=== PATIENT | male | born 1950 | race Two or more races ===

== ENCOUNTER 2017-03-22 13:48 | Inpatient (IN) | payer MEDICARE, OTHER ==
[~2017-03-22] VITALS: Ht 170.2 cm; Wt 71.7 kg
--- NOTE | 2017-03-22 14:00 | NUR ---
FRED FROM [facility], [place] FOR ABNORMAL LAB RESULTS-- BUN 126 K- 6.1. PATIENT RECEIVED OBTUNDED, VENT TRACHE- SETTING TOLERATED. GT INTACT, NO SIGNS ON INFECTION, FC CATH INDWELLING WELL. PATIENT WITH RBKA- VSS
[2017-03-22 14:05] VITALS: BP 144/57
--- NOTE | 2017-03-22 14:06 | NUR ---
AC 12 TV 500 [id number]
--- NOTE | 2017-03-22 14:10 | NUR ---
MD MARX AT
[2017-03-22] MEDS ORDERED: NUT.237L31 GT (14:13)
[2017-03-22] MEDS ORDERED: ASPI81TA2 GT (14:13)
[2017-03-22] MEDS ORDERED: BLOO-668 IN (14:13)
[2017-03-22] MEDS ORDERED: CHLO15MO2 MM (14:13)
[2017-03-22] MEDS ORDERED: OMEP20CA10 GT (14:13)
[2017-03-22] MEDS ORDERED: BETH25TA GT (14:13)
[2017-03-22] MEDS ORDERED: INSU100V27 SQ (14:13)
[2017-03-22] MEDS ORDERED: CHOL100044 GT (14:13)
[2017-03-22] MEDS ORDERED: NUTR1PAC14 GT (14:13)
[2017-03-22] MEDS ORDERED: AMLO10TA2 GT (14:13)
[2017-03-22] MEDS ORDERED: DOCU50LI GT (14:13)
[2017-03-22] MEDS ORDERED: ACET160S2 GT (14:13)
[2017-03-22] MEDS ORDERED: ATOR40TA GT (14:13)
[2017-03-22] MEDS ORDERED: ACET-2605 GT (14:13)
[2017-03-22] MEDS ORDERED: IPRA3AMP IH ×2 (14:13)
[2017-03-22] MEDS ORDERED: ASCO500S2 GT (14:19)
[2017-03-22] MEDS ORDERED: TAMS-12 GT (14:19)
[2017-03-22] MEDS ORDERED: NA P133E RC (14:19)
[2017-03-22] MEDS ORDERED: ZINC220C8 GT (14:19)
[2017-03-22] MEDS ORDERED: AMIN30LI4 GT (14:19)
[2017-03-22] MEDS ORDERED: FINA5TAB11 GT (14:19)
[2017-03-22] MEDS ORDERED: MULT-659 GT (14:19)
[2017-03-22] MEDS ORDERED: EPOE1VIA6 SQ (14:19)
[2017-03-22] MEDS ORDERED: MAGN400O6 GT (14:19)
[2017-03-22] MEDS ORDERED: FOLI1TAB16 GT (14:19)
[2017-03-22] MEDS ORDERED: NAPH1POW3 GT (14:23)
[2017-03-22] MEDS ORDERED: IV NS 0.9% 1,000 ML BAG IV ONE ×2 (14:30→15:30)
[2017-03-22 14:34] LABS: BASOPHILS % (AUTO) 0.2 % (0.0-2.0); EOSINOPHILS # (AUTO) 0.4 /CMM (0.0-0.7); EOSINOPHILS % (AUTO) 3.5 % (0.0-6.0); HEMATOCRIT 28 % (39-51); HEMOGLOBIN 8.7 g/dL (13.5-17.5); LYMPHOCYTES # (AUTO) 0.8 /CMM (0.8-4.8); LYMPHOCYTES % (AUTO) 7.7 % (20.0-44.0); MEAN CORPUSCULAR HEMOGLOBIN 28 PG (26.0-33.0); MEAN CORPUSCULAR HGB CONC 31 g/dl (31.0-36.0); MEAN CORPUSCULAR VOLUME 90 fL (80-96); MONOCYTES # (AUTO) 0.5 /CMM (0.1-1.30); MONOCYTES % (AUTO) 5.2 % (2.0-12.0); NEUTROPHILS # (AUTO) 8.9 /CMM (1.8-8.9); NEUTROPHILS % (AUTO) 83.4 % (43.0-81.0); PLATELET COUNT (AUTO) 237 /CMM (150-450); RDW COEFFICIENT OF VARIATION 17.7 (11.5-15.0); WHITE BLOOD COUNT (AUTO) 10.6 K/uL (4.3-11.0)
--- NOTE | 2017-03-22 14:37 | NUR ---
PRODUCTION ADMINISTRATOR ATBS
[2017-03-22 14:49] LABS: INR 1.21 (0.87-1.13); PROTHROMBIN TIME 12.7 SECS (9.5-12.7)
[2017-03-22 14:51] LABS: ALBUMIN 1.8 g/dL (3.4-5.0); BILIRUBIN,DIRECT 0.1 mg/dL (0.0-0.2); BILIRUBIN,TOTAL 0.4 mg/dL (0.2-1.0); CALCIUM, SERUM 8.9 mg/dL (8.5-10.1); CREATININE 1.9 mg/dL (0.6-1.3); POTASSIUM 5.6 mmol/L (3.5-5.1)
--- NOTE | 2017-03-22 15:06 | NUR ---
Note ananicky in ED - 03/22/17 at 1633 by PIEDAD IV removed. Catheter intact and site benign. Pressure and 4x4 applied to site. No bleeding noted.Patient discharged to home in stable condition. Written and verbal after care instructions given. Patient verbalizes understanding of instruction.
[2017-03-22 16:26] VITALS: BP 158/67
--- NOTE | 2017-03-22 16:33 | NUR ---
REPORT GIVEN TO JACLYN LYNCH FOR ROSALIA
[2017-03-22] MEDS ORDERED: IV NS 0.9% 1,000 ML IV PRN (16:41)
[2017-03-22] MEDS ORDERED: MAG HYDROX/AL HYDROX/SIMETH 30 ML UDC PO PRN (17:00)
[2017-03-22] MEDS ORDERED: NA PHOS,M-B/NA PHOS,DI-BA 1 EA ENEMA RC PRN (17:00)
[2017-03-22] MEDS ORDERED: Medication Not On Formulary EA (Arginine/Glutamine/Calcium Hmb (Juven Packet) 1 EACH) GT SCH (17:00)
[2017-03-22] MEDS ORDERED: HYDROCODONE/APAP 5/325MG 1 EACH TABLET PO PRN (17:00)
[2017-03-22] MEDS ORDERED: ONDANSETRON HCL/PF 4 MG/2 ML VIAL IVP PRN (17:00)
[2017-03-22] MEDS ORDERED: ZOLPIDEM TARTRATE 5 MG TABLET PO PRN (17:00)
[2017-03-22] MEDS ORDERED: ACETAMINOPHEN 325 MG TABLET PO PRN (17:00)
[2017-03-22] MEDS ORDERED: Medication Not On Formulary EA (Ipratropium/Albuterol Sulfate (Duoneb 2.5-0.5 Mg/3 Ml So IH PRN (17:00)
[2017-03-22] MEDS ORDERED: GLYTROL 1,000 ML BAG GT SCH (17:00)
[2017-03-22] MEDS ORDERED: MAGNESIUM HYDROXIDE 30 ML UDC PO PRN (17:00)
[2017-03-22] MEDS ORDERED: MAGNESIUM HYDROXIDE 30 ML UDC GT PRN (17:00)
--- NOTE | 2017-03-22 17:15 | NUR ---
CUSTOMER ACCOUNT SPECIALIST RECEIVED PATIENT FROM E.R. DEPARTMENT, PATIENT TRANSFERRED TO BED FROM [facility] KEPT COMFORTABLE, OBTUNDED, NO DISTRESS NOTED, SUCTIONED X1 FOR INCREASED SECRETION, HOB ELEVATED, NEEDS ATTENDED AND ANTICIPATED, SAFETY MEASURES IN PLACED, CALL LIGHT WITHIN REACH, WILL CONTINUE TO MONITOR.
[2017-03-22 17:26] LABS: APPEARANCE,URINE CLEAR (CLEAR); BILIRUBIN,URINE NEGATIVE (NEGATIVE); BLOOD, URINE TRACE-INTA Ery/uL (NEGATIVE); COLOR,URINE YELLOW (YELLOW); KETONES,URINE NEGATIVE (NEGATIVE); LEUKOCYTE ESTERASE ,URINE TRACE (NEGATIVE); NITRITE, URINE NEGATIVE (NEGATIVE); PH,URINE 8.5 (5.0-8.0); PROTEIN,URINE 2+ mg/dl (NEGATIVE); UGLUCOSE NEGATIVE (NEGATIVE); UROBILINOGEN,URINE 0.2 EU/dL (0.2)
[2017-03-22 17:30] VITALS: BP 141/62
[2017-03-22 17:30] LABS: IRON, SERUM 17 ug/dl (50-175); TOTAL IRON BINDING CAPACITY 92 ug/dl (250-450)
[2017-03-22] MEDS ORDERED: IPRATROPIUM NEB FS 0.5 MG/2.5 ML AMPUL.NEB NEB PRN (17:30)
[2017-03-22] MEDS ORDERED: ALBUTEROL FS 2.5 MG/3 ML VIAL.NEB NEB PRN (17:30)
[2017-03-22 17:40] LABS: BACTERIA,URINE None seen /HPF (None Seen); SQUAMOUS EPITHELIAL CELL,UR Few /HPF (None Seen)
[2017-03-22] MEDS ORDERED: DEXTROSE 50%-WATER 50 ML DISP.SYRIN IV PRN (18:00)
[2017-03-22] MEDS ORDERED: GLYTROL 1,000 ML BAG GT PRN (18:00)
--- NOTE | 2017-03-22 18:00 | NUR ---
DIRECTOR SEARCH MARKETING STRATEGIES NOTES VENT SETTINGS TOLERATING WELL, NO SOB, SUCTIONED X2, PHYSICAL ASSESSMENT COMPLETED, SKIN ASSESSED AND NOTED WITH RIGHT BKA, SACRAL WOUND, ABDOMINAL RASHES, MULTIPLE DISCOLORATIONS ON RIGHT ARM AND LEFT ARM, PHOTOS TAKEN AND PLACED IN CHART, SKIN CARE, PERICARE RENDERED, LOOSE BM X1, F/C EMPTIED 1000CC OF CLEAR URINE, SACRAL WOUND COVERED WITH Z-GUARD AND MEPILEX, TURNED AND REPOSITIONED, CALL LIGHT WITHIN REACH, WILL CONTINUE TO MONITOR.
--- NOTE | 2017-03-22 19:09 | NUR ---
AGENCY SALES REPRESENTATIVE NOTES PATIENT'S TELE MONITOR SHOWED SINUS JUANPABLO WITH HEART RATE OF 36, ASSESSED PATIENT, NO DISTRESS NOTED, MANUAL HEART RATE CHECKED 68 BPM, SPO2 100%, VITALS STABLE, INFORMED DR. JASMINE AND RECEIVED NEW ORDER FOR STAT EKG, ORDER NOTED AND CARRIED OUT. RT MADE AWARE. ENDORSED TO NEXT SHIFT FOR ROSALIA.
[2017-03-22] MEDS ORDERED: Z GUARD REMEDY 2 OZ OINT TP PRN (19:30)
--- NOTE | 2017-03-22 19:30 | NUR ---
MARKETING SEGMENT MANAGER NOTES RECEIVED ON BED A/O X1,OPEN EYES TO NAME,ON TRACH TO VENT TOLERATED WELL.SUCTION PO AND TRACH NEEDED.WITH GT INTACT,NO RESIDUAL NOTED.WITH HX OF RIGHT BKA.DERAS CATH IN PLACE DRAINING TY COLORED URINE.KCI MATTRESS IN USED FOR SKIN MANAGEMENT.REPOSITION PER PROTOCOL.CALL LIGHT IN REACH.WILL CONTINUE TO MONITOR STATUS.
[2017-03-22 20:00] VITALS: BP 146/59
[2017-03-22] MEDS: TAMSULOSIN 0.4 MG CAP.SR.24H GT SCH (21:57)
[2017-03-22] MEDS: CHLORHEXIDINE GLUCONATE 15 ML UDC MM SCH (21:57)
[2017-03-22] MEDS: ATORVASTATIN 40 MG TABLET GT SCH (21:58)
--- NOTE | 2017-03-22 21:58 | NUR ---
MARKING CLERK NOTES STARTED ON GLYTROL FEEDING STARTED AT 20ML/HR RATE,TOLERATED WELL,NO RESIDUAL NOTED.HOB ELEVATED FOR ASPIRATION PRECAUTION
--- NOTE | 2017-03-22 22:00 | NUR ---
COMBO WELDER NOTES DUE MEDS GIVEN PER GT ORDERED.
[2017-03-22] MEDS: BLOOD SUGAR DIAGNOSTIC 1 EACH STRIP IN SCH (22:31)
[2017-03-22] MEDS: INSULIN REGULAR, HUMAN 100 UNIT/ML 3 ML VIAL SQ PRN (22:45)
[2017-03-23] VITALS (7 sets, daily range): BP systolic 137–155; BP diastolic 59–68
--- NOTE | 2017-03-23 01:00 | NUR ---
THRESHING MACHINE OPERATOR NOTES REPOSITION TO SIDES PER PROTOCOL,A DN FOR SKIN MANAGEMENT.
--- NOTE | 2017-03-23 02:40 | NUR ---
RN RENAL NOTE ACCOMPANIED PATIENT TO CT SCAN ALONG WITH RT AND THE X-RAY MACHINE MAINTENANCE TECHNICIAN. PATIENT TOLERATED THE MOVE AND THE PROCEDURE WELL. PATIENT IS BACK TO IN HIS ROOM. STABLE. VS WNL. BED IS LOCKED, SIDE RAILS UP X 3, ENCINAS'S POSITION.
--- NOTE | 2017-03-23 05:30 | NUR ---
HERB GROWER NOTES A/O X1,VENT SETTINGS TOLERATED WELL ,TRACH CARE DONE,GT FEEDING IN PROGRESS,TOLERATED WELL.2 CC RESIDUAL VOLUME NOTED HEAD OF BED ELEVATED,REPOSITION PER PROTOCOL.IN NO ACUTE DISTRESS.MEPILEX APPLIED TO SACRAL AREA.WILL ENDORSE TO DAY NURSE FOR ROSALIA.
[2017-03-23 07:16] LABS: BASOPHILS % (AUTO) 0.2 % (0.0-2.0); EOSINOPHILS # (AUTO) 0.4 /CMM (0.0-0.7); EOSINOPHILS % (AUTO) 4.5 % (0.0-6.0); HEMATOCRIT 29 % (39-51); HEMOGLOBIN 9.2 g/dL (13.5-17.5); LYMPHOCYTES % (AUTO) 11.3 % (20.0-44.0); MEAN CORPUSCULAR HEMOGLOBIN 29 PG (26.0-33.0); MEAN CORPUSCULAR HGB CONC 32 g/dl (31.0-36.0); MEAN CORPUSCULAR VOLUME 90 fL (80-96); MONOCYTES # (AUTO) 0.6 /CMM (0.1-1.30); MONOCYTES % (AUTO) 6.8 % (2.0-12.0); NEUTROPHILS % (AUTO) 77.2 % (43.0-81.0); PLATELET COUNT (AUTO) 212 /CMM (150-450); RDW COEFFICIENT OF VARIATION 19.1 (11.5-15.0); RED BLOOD CELL COUNT(AUTO) 3.17 MIL/uL (4.5-6.0); WHITE BLOOD COUNT (AUTO) 9.1 K/uL (4.3-11.0)
[2017-03-23 07:27] LABS: INR 1.16 (0.87-1.13); PROTHROMBIN TIME 12.5 SECS (9.5-12.7)
[2017-03-23] MEDS: BLOOD SUGAR DIAGNOSTIC 1 EACH STRIP IN SCH ×4 (07:30→21:09)
[2017-03-23] MEDS ORDERED: PANTOPRAZOLE 40 MG TABLET.DR PO SCH (07:30)
--- NOTE | 2017-03-23 07:30 | NUR ---
LEAD JAVASCRIPT DEVELOPER REPORT RECEIVED. PATIENT IS RESTING IN BED. BED IN LOCKED POSITION, SIDE RAILS UP X 2, DARIN ENCINAS'S POSITION. PATIENT IS ASLEEP. WILL COME BACK TO CHECK ON PATIENT SHORTLY.
[2017-03-23 07:42] LABS: ALBUMIN 1.7 g/dL (3.4-5.0); BILIRUBIN,TOTAL 0.4 mg/dL (0.2-1.0); CREATININE 1.7 mg/dL (0.6-1.3); MAGNESIUM 2.2 mg/dL (1.8-2.4); PHOSPHORUS 3.2 mg/dL (2.5-4.9); POTASSIUM 4.6 mmol/L (3.5-5.1); TOTAL PROTEIN, SERUM 6.1 g/dL (6.4-8.2)
--- NOTE | 2017-03-23 07:45 | NUR ---
GENERAL LABOR NOTE PATIENT WAS REPOSITIONED, OFFLOADING R SIDE. VENTILATOR SETTINGS PRESCRIBED, BOTH IV SITES ARE PATENT. IV FLUID RUNNING AT PRESCRIBED RATE.
--- NOTE | 2017-03-23 08:00 | NUR ---
TISSUE TECHNOLOGIST NOTES SPOKE WITH JOSE GUADALUPE DE LEON TO NOTIFY PATIENT REQUIRING ABG
[2017-03-23] MEDS ORDERED: IV D5W 1,000 ML IV ONE (09:00)
[2017-03-23] MEDS ORDERED: PROSOURCE / PROSTAT (PYXIS) 30 ML UDC GT SCH (09:00)
[2017-03-23] MEDS ORDERED: ASCORBIC ACID SYRUP 500 MG/5 ML UDC GT SCH (09:00)
[2017-03-23] MEDS ORDERED: K PH MBDB GT SCH (09:00)
[2017-03-23] MEDS ORDERED: NAPH MB DB GT SCH (09:00)
[2017-03-23 09:03] LABS: THYROID STIMULATING HORMONE 1.782 uIU/mL (0.358-3.74)
--- NOTE | 2017-03-23 09:09 | NUR ---
COURT ASSISTANT NOTE INFORMED DR SCHROEDER OF PATIENT'S ABNORMAL LABS. ONLY NEW ORDER RECEIVED IS TO CHANGE IV FLUIDS TO CONTINUES.
[2017-03-23 09:13] LABS: ABG BASE EXCESS 1.3 mmol/L; ABG OXYGEN SATURATION 93.6 % (92.0-98.5); ABG PCO2 41.3 mmHg (35.0-45.0); ABG PH 7.416 (7.350-7.450); ABG PO2 70.9 mmHg (75.0-100.0); AaDO2 166.8 mmHg; COHb 0.8 % (0.5-1.5); MetHb 0.4 % (0.0-1.5); O2Hb 92.5 % (94.0-97.0); SITE, ABG Right Brachial
[2017-03-23] MEDS: PANTOPRAZOLE 40 MG/PACK PACK GT SCH (09:41)
[2017-03-23] MEDS: CHOLECALCIFEROL 1,000 UNIT TABLET (VIT D3) GT SCH (09:44)
[2017-03-23] MEDS: DOCUSATE SODIUM LIQ 100 MG/10 ML UDC GT SCH (09:44)
[2017-03-23] MEDS: ASPIRIN 81 MG TAB.CHEW GT SCH (09:44)
[2017-03-23] MEDS: MULTIVIT, IRON, MIN NO. 8, FA 1 TAB GT SCH (09:44)
--- NOTE | 2017-03-23 09:44 | NUR ---
WOUND CARE CONSULT: PT PRESENTS WITH SACRAL ULCER, STAGE 3 WHICH EXTENDS TO BUTTOCKS, PRESENT ON ADMISSION. RECOMMENDATIONS MADE FOR SKIN PROTECTION AND WOUND CARE. DISCUSSED WITH NURSING STAFF. RECOMMEND SURGICAL CONSULT. SOME RASH NOTED TO LEFT SHOULDER AREA AND RESOLVING RASH NOTED TO ABDOMEN. DEFER TO MD FOR RASH. RT BK STUMP NOTED TO BE INTACT. ALL SKIN PROTECTION MEASURES IN PLACE INCLUDING FIRST STEP MATTRESS. WILL SEE PRN. MD IN AGREEMENT WITH PLAN OF CARE. Addendum: 03/23/17 at 0946 by RICA YADAV WNDNU Amended: Links added.
[2017-03-23] MEDS: ZINC SULFATE 220 MG CAPSULE GT SCH (09:45)
[2017-03-23] MEDS: AMLODIPINE BESYLATE 10 MG TABLET GT SCH (09:45)
[2017-03-23] MEDS: CHLORHEXIDINE GLUCONATE 15 ML UDC MM SCH ×2 (09:45→21:09)
[2017-03-23] MEDS: BETHANECHOL CHLORIDE (25 MG) 25 MG TABLET GT SCH (09:45)
[2017-03-23] MEDS: Z GUARD REMEDY 2 OZ OINT TP SCH (09:46)
[2017-03-23] MEDS: FINASTERIDE (5 MG) 5 MG TABLET GT SCH (09:47)
[2017-03-23] MEDS: FOLIC ACID 1 MG TABLET GT SCH (09:48)
--- NOTE | 2017-03-23 09:53 | NUR ---
TOP TAPER MACHINE NOTE NO NEW ORDERS R/T LABS. UPDATED D5W ORDER TO PRN PER MD JASMINE.
[2017-03-23] MEDS ORDERED: HYDROGEL DRESSING 90 GM TUBE TP PRN (10:00)
[2017-03-23] MEDS: HYDROGEL DRESSING 90 GM TUBE TP SCH (10:16)
--- NOTE | 2017-03-23 11:00 | NUR ---
RT SPUTUM COLLECTED (SUCTIONED FROM TRACH) AND SENT TO LAB FOR TEST.
[2017-03-23] MEDS: CEFTRIAXONE 1 G in IV D5W 50 ML IV SCH (11:47)
[2017-03-23] MEDS: INSULIN REGULAR, HUMAN 100 UNIT/ML 3 ML VIAL SQ PRN ×3 (12:03→21:13)
[2017-03-23] MEDS: Z GUARD REMEDY 2 OZ OINT TP PRN (12:07)
--- NOTE | 2017-03-23 14:00 | NUR ---
CHIEF METEOROLOGIST NOTE ENTERAL FEEDING STOPPED FOR 4 HRS PER MD ORDER. WILL RESUME AT 1800.
[2017-03-23] MEDS: ACETYLCYSTEINE 10% SOLN 400 MG/4 ML VIAL NEB SCH (14:57)
--- NOTE | 2017-03-23 16:35 | NUR ---
TANK TRUCK ENGINE MECHANIC NOTES NOTIFIED MD DIETARY RECOMMENDING PATIENT FEEDING BE INCREASED TO 70ML/HOUR AND DISCONTINUE PROSTAT. PER MD THIS IS OK TO ORDER.
[2017-03-23] MEDS ORDERED: GLYTROL 1,000 ML BAG GT SCH (17:00)
[2017-03-23] MEDS: EPOETIN ALFA (10,000 UNIT) 10,000 UNIT/ML VIAL SQ SCH (17:48)
--- NOTE | 2017-03-23 18:40 | NUR ---
STORE CUSTODIAN NOTES MESSAGE TO DR JASMINE TO NOTIFY PATIENT POSITIVE FOR MRSA NARES AND TO MAKE SURE AWARE OF GRAM NEGATIVE RODS URINE PRELIM
--- NOTE | 2017-03-23 19:00 | NUR ---
RN CLOSING NOTE PATIENT IS SLEEPING IN BED. VENTILATOR SETTINGS ORDERED. SPO2 100%. VS WNL. IV FLUID ORDERED. FEEDING ORDER. PATIENT IS STABLE. BED IS LOCKED, IN LOWEST POSITION, FOWLERS, SIDE RAILS UP X3, BED ALARM ON. PATIENT IS POSITIVE FOR MRSA. SIGN POSTED ON THE DOOR. MD NOTIFIED. WILL GIVE REPORT/ENDORSE TO HIGH FREQUENCY MILL OPERATOR FOR ROSALIA.
--- NOTE | 2017-03-23 19:30 | NUR ---
RN NOTES RECEIVED PATIENT IN BED WITH EYES CLOSED. PATIENT RESPONSIVE TO VOICE AND TOUCH; OPENS EYES SPONTANEOUSLY; NON-VERBAL. NO ACUTE DISTRESS NOTED. NO SIGNS OF PAIN NOTED. TELE READING SINUS JUANPABLO HR 56. TRACH IN PLACE; VENT SETTINGS ORDERED. IV SITES PATENT, INTACT; IVF INFUSING ORDERED. GT PATENT, INTACT; IN PLACE VIA AUSCULTATION. PATIENT TOLERATING GTF RUNNING AT 70 ML/HOUR. DERAS CATH PATENT, INTACT; DRAINING CLEAR YELLOW URINE. ON LOW BED WITH BILATERAL UPPER SIDE RAILS UP. CALL LIGHT WITHIN EASY REACH. WILL CONTINUE TO MONITOR.
[2017-03-23] MEDS: GLYTROL 1,000 ML BAG GT SCH (20:12)
[2017-03-23 20:18] LABS: CALCIUM, SERUM 8.7 mg/dL (8.5-10.1); CREATININE 1.7 mg/dL (0.6-1.3); POTASSIUM 4.3 mmol/L (3.5-5.1)
[2017-03-23] MEDS: ATORVASTATIN 40 MG TABLET GT SCH (21:09)
[2017-03-23] MEDS: TAMSULOSIN 0.4 MG CAP.SR.24H GT SCH (21:09)
[2017-03-23] MEDS: MUPIROCIN OINT 2% 22 GM TUBE SCH (21:25)
[2017-03-24] VITALS (7 sets, daily range): BP systolic 104–167; BP diastolic 55–80
[2017-03-24] MEDS: ACETYLCYSTEINE 10% SOLN 400 MG/4 ML VIAL NEB SCH ×4 (00:09→23:20)
[2017-03-24] MEDS: IV D5W 1,000 ML IV PRN ×3 (00:45→22:57)
--- NOTE | 2017-03-24 06:20 | NUR ---
RN NOTES PATIENT ASLEEP, AROUSABLE. RESPIRATIONS EVEN. NO SIGNS OF PAIN NOTED. NO SIGNS OF HYPER/HYPOGLYCEMIA NOTED. DUE MEDS GIVEN WITH NO ASE NOTED. NEEDS ATTENDED. SAFETY PRECAUTIONS AND COMFORT MEASURES IN PLACE. WILL GIVE REPORT TO DAY SHIFT FOR CONTINUITY OF CARE.
[2017-03-24] MEDS: BLOOD SUGAR DIAGNOSTIC 1 EACH STRIP IN SCH ×3 (06:38→17:43)
[2017-03-24] MEDS: INSULIN REGULAR, HUMAN 100 UNIT/ML 3 ML VIAL SQ PRN ×3 (06:39→17:49)
[2017-03-24] MEDS: PANTOPRAZOLE 40 MG/PACK PACK GT SCH (06:51)
[2017-03-24 07:25] LABS: BASOPHILS # (AUTO) 0.1 /CMM (0.0-0.2); EOSINOPHILS # (AUTO) 0.3 /CMM (0.0-0.7); EOSINOPHILS % (AUTO) 3.2 % (0.0-6.0); HEMATOCRIT 28 % (39-51); LYMPHOCYTES # (AUTO) 0.9 /CMM (0.8-4.8); LYMPHOCYTES % (AUTO) 8.3 % (20.0-44.0); MEAN CORPUSCULAR HEMOGLOBIN 29 PG (26.0-33.0); MEAN CORPUSCULAR HGB CONC 32 g/dl (31.0-36.0); MEAN CORPUSCULAR VOLUME 90 fL (80-96); MONOCYTES # (AUTO) 0.5 /CMM (0.1-1.30); MONOCYTES % (AUTO) 4.8 % (2.0-12.0); NEUTROPHILS # (AUTO) 8.8 /CMM (1.8-8.9); NEUTROPHILS % (AUTO) 82.7 % (43.0-81.0); PLATELET COUNT (AUTO) 206 /CMM (150-450); RDW COEFFICIENT OF VARIATION 18.7 (11.5-15.0); RED BLOOD CELL COUNT(AUTO) 3.12 MIL/uL (4.5-6.0); WHITE BLOOD COUNT (AUTO) 10.7 K/uL (4.3-11.0)
--- NOTE | 2017-03-24 07:30 | NUR ---
SALES ENGINEER ACCOUNT MANAGER AM NOTES RECEIVED PATIENT IN BED, NON VERBAL, OPENS EYES TO TOUCH AND VOICE, WITH PORTEX #7, MECHANICAL VENT DEPENDENT, SETTINGS ORDERED, NAD, NO SOB, RESPIRATION EVEN AND UNLABORED. TELEMETRY READS SB HR 58, NO SIGNS OF ANY DISCOMFORT AT THIS TIME, D5W AT 100 ML/HR TO LFA G22, RT WRIST WITH G20 IV ACCESS, FLUSHES WELL, BOTH IV SITES CLEAR, GTF ONGOING GLYTROL AT 70 ML/HR ON AT 1800 OFF AT 1400 [20HRS]. DERAS CATH PATENT, INTACT; DRAINING CLEAR YELLOW URINE. SEE NURSING FLOWSHEET FOR SKIN ISSUES. WILL PERFORM PRESCRIBED WOUND TREATMENT IN A WHILE. BED LOW LOCKED, SR UP X 2, WILL TURN AND REPOSITION, SUCTION PRN, CALL LIGHT WITHIN EASY REACH. WILL CONTINUE TO MONITOR. Addendum: 03/24/17 at 1812 by BROOKE BUSTAMANTE RN VICTOR M ANAYA NOTES GTF 0 RESIDUAL
[2017-03-24 07:46] LABS: CALCIUM, SERUM 8.5 mg/dL (8.5-10.1); CREATININE 1.7 mg/dL (0.6-1.3); MAGNESIUM 1.9 mg/dL (1.8-2.4); PHOSPHORUS 3.2 mg/dL (2.5-4.9); POTASSIUM 4.3 mmol/L (3.5-5.1)
[2017-03-24] MEDS: DOCUSATE SODIUM LIQ 100 MG/10 ML UDC GT SCH (09:06)
[2017-03-24] MEDS: CHLORHEXIDINE GLUCONATE 15 ML UDC MM SCH ×2 (09:06→21:22)
[2017-03-24] MEDS: BETHANECHOL CHLORIDE (25 MG) 25 MG TABLET GT SCH (09:08)
[2017-03-24] MEDS: ZINC SULFATE 220 MG CAPSULE GT SCH (09:08)
[2017-03-24] MEDS: FINASTERIDE (5 MG) 5 MG TABLET GT SCH (09:08)
[2017-03-24] MEDS: MULTIVIT, IRON, MIN NO. 8, FA 1 TAB GT SCH (09:08)
[2017-03-24] MEDS: ASPIRIN 81 MG TAB.CHEW GT SCH (09:08)
[2017-03-24] MEDS: ASCORBIC ACID 500 MG TABLET GT SCH (09:08)
[2017-03-24] MEDS: FOLIC ACID 1 MG TABLET GT SCH (09:08)
[2017-03-24] MEDS: Z GUARD REMEDY 2 OZ OINT TP SCH (09:09)
[2017-03-24] MEDS: HYDROGEL DRESSING 90 GM TUBE TP SCH (09:09)
[2017-03-24] MEDS: AMLODIPINE BESYLATE 10 MG TABLET GT SCH (09:10)
[2017-03-24] MEDS: CHOLECALCIFEROL 1,000 UNIT TABLET (VIT D3) GT SCH (09:12)
[2017-03-24] MEDS: MUPIROCIN OINT 2% 22 GM TUBE SCH ×2 (09:14→21:27)
--- NOTE | 2017-03-24 09:30 | NUR ---
CREDIT ADJUSTER NOTES ADMINISTERED DUE MEDS.
[2017-03-24] MEDS: CEFTRIAXONE 1 G in IV D5W 50 ML IV SCH (11:13)
--- NOTE | 2017-03-24 11:19 | NUR ---
CNC MAINTENANCE TECHNICIAN NOTES ACCUCHECKD DONE. BS 241 MG/DL. ADMINISTERED 4 UNITS HUM R PER SLIDING SCALE. STARTED ROCEPHIN IV.
--- NOTE | 2017-03-24 17:48 | NUR ---
DISCHARGE DOOR OPERATOR NOTES ACCUCHECK DONE. BS 177 MG/DL. ADMINISTERED 3 UNITS HUM R PER SLIDING SCALE.
[2017-03-24] MEDS: GLYTROL 1,000 ML BAG GT SCH (17:53)
--- NOTE | 2017-03-24 18:24 | NUR ---
GAS FITTER APPRENTICE CLOSING NOTES PATIENT IN BED, NON VERBAL, OPENS EYES TO TOUCH AND VOICE, WITH PORTEX #7, MECHANICAL VENT DEPENDENT, SETTINGS ORDERED, NAD, NO SOB, RESPIRATION EVEN AND UNLABORED. TELEMETRY READS SB HR 56, NO SIGNS OF ANY DISCOMFORT AT THIS TIME, D5W AT 100 ML/HR TO LFA G22, RT WRIST WITH G20 IV ACCESS, FLUSHES WELL, BOTH IV SITES CLEAR, GTF ONGOING GLYTROL AT 70 ML/HR ON AT 1800 OFF AT 1400 [20HRS]. DERAS CATH PATENT, INTACT; DRAINING CLEAR YELLOW URINE. 1300 ML OUTPUT. PERFORMED PRESCRIBED WOUND TREATMENT EARLIER. TURNED AND REPOSITIONED. GT FLUSHED Q6H WITH 200 ML WATER. BED LOW LOCKED, SR UP X 2, SUCTION PRN, CALL LIGHT WITHIN EASY REACH. ALL NEEDS MET. NO OTHER SIGNIFICANT CONDITION. WILL ENDORSE TO NEXT SHIFT FOR ROSALIA.
--- NOTE | 2017-03-24 20:05 | NUR ---
TELE/RN RECEIVE PATIENT AWAKE, NON VERBAL, APPEAR COMFORTABLE, NO DISTRESS NOTED, MECH VENT WORKING WELL, HOB ELEVATED, GT FEEDING INFUSING, NO RESIDUAL NOTED, WILL MONITOR.
[2017-03-24] MEDS: ATORVASTATIN 40 MG TABLET GT SCH (21:23)
[2017-03-24] MEDS: TAMSULOSIN 0.4 MG CAP.SR.24H GT SCH (21:23)
--- NOTE | 2017-03-24 21:53 | NUR ---
TELE/RN PATIENT PULLED OUT TRACH TUBINGS X 2, PATIENT UNABLE TO FOLLOW COMMAND. ORDER FOR BILATERAL MITTENS OBTAINED FROM KATE BOLAÑOS.
[2017-03-25] VITALS: BP 151/64
[2017-03-25] MEDS: BLOOD SUGAR DIAGNOSTIC 1 EACH STRIP IN SCH ×5 (00:06→22:09)
[2017-03-25] MEDS: INSULIN REGULAR, HUMAN 100 UNIT/ML 3 ML VIAL SQ PRN ×5 (00:07→22:11)
[2017-03-25 04:00] VITALS: BP 158/67
[2017-03-25] MEDS: GLYTROL 1,000 ML BAG GT SCH ×2 (05:45→22:29)
--- NOTE | 2017-03-25 06:00 | NUR ---
TELE/RN MORNING CARE WAS DONE, TOTAL LINEN CHANGE RENDERED, TRACH CARE DONE, TOLERATED, PEG SITE CARE DONE, DRESSING APPLIED. REPOSITIONED TO COMFORT. WILL CONTINUE TO MONITOR.
[2017-03-25 06:52] LABS: BASOPHILS % (AUTO) 0.4 % (0.0-2.0); EOSINOPHILS # (AUTO) 0.3 /CMM (0.0-0.7); EOSINOPHILS % (AUTO) 4.3 % (0.0-6.0); HEMATOCRIT 28 % (39-51); HEMOGLOBIN 8.7 g/dL (13.5-17.5); LYMPHOCYTES # (AUTO) 1.1 /CMM (0.8-4.8); LYMPHOCYTES % (AUTO) 13.8 % (20.0-44.0); MEAN CORPUSCULAR HEMOGLOBIN 28 PG (26.0-33.0); MEAN CORPUSCULAR HGB CONC 32 g/dl (31.0-36.0); MEAN CORPUSCULAR VOLUME 89 fL (80-96); MONOCYTES # (AUTO) 0.5 /CMM (0.1-1.30); MONOCYTES % (AUTO) 6.7 % (2.0-12.0); NEUTROPHILS # (AUTO) 6.1 /CMM (1.8-8.9); NEUTROPHILS % (AUTO) 74.8 % (43.0-81.0); PLATELET COUNT (AUTO) 217 /CMM (150-450); RDW COEFFICIENT OF VARIATION 18.5 (11.5-15.0); RED BLOOD CELL COUNT(AUTO) 3.09 MIL/uL (4.5-6.0); WHITE BLOOD COUNT (AUTO) 8.1 K/uL (4.3-11.0)
[2017-03-25] MEDS: ACETYLCYSTEINE 10% SOLN 400 MG/4 ML VIAL NEB SCH ×2 (07:24→15:45)
[2017-03-25 07:40] LABS: ALBUMIN 1.6 g/dL (3.4-5.0); BILIRUBIN,TOTAL 0.3 mg/dL (0.2-1.0); CALCIUM, SERUM 8.4 mg/dL (8.5-10.1); CREATININE 1.5 mg/dL (0.6-1.3); MAGNESIUM 1.9 mg/dL (1.8-2.4); PHOSPHORUS 3.1 mg/dL (2.5-4.9); POTASSIUM 4.1 mmol/L (3.5-5.1); TOTAL PROTEIN, SERUM 5.8 g/dL (6.4-8.2)
--- NOTE | 2017-03-25 07:51 | NUR ---
RN OPENING NOTES PATIENT IS RESTING IN BED COMFORTABLE WITH EYES CLOSED. PATIENT IS NON VERBAL. PATIENT HAS VENT SUPPORT IN PLACE. PATIENT ON ISOLATION. TELE MONITORING READING SR/SB. PATIENT HAS MITTENS ON. GT FEEDING RUNNING AT 70ML/HR. D5W RUNNING AT 100ML/HR. IV PATENT AND INTACT. BED LOCKED IN THE LOWEST POSITION WITH SIDE RAILS UP X2. CALL LIGHT WITHIN REACH. HOB ELEVATED. WILL CONTINUE TO MONITOR.
[2017-03-25 08:00] VITALS: BP 136/53
[2017-03-25] MEDS: FINASTERIDE (5 MG) 5 MG TABLET GT SCH (08:57)
[2017-03-25] MEDS: PANTOPRAZOLE 40 MG/PACK PACK GT SCH (08:57)
[2017-03-25] MEDS: CHOLECALCIFEROL 1,000 UNIT TABLET (VIT D3) GT SCH (08:57)
[2017-03-25] MEDS: FOLIC ACID 1 MG TABLET GT SCH (08:58)
[2017-03-25] MEDS: MULTIVIT, IRON, MIN NO. 8, FA 1 TAB GT SCH (08:58)
[2017-03-25] MEDS: ASPIRIN 81 MG TAB.CHEW GT SCH (08:58)
[2017-03-25] MEDS: ASCORBIC ACID 500 MG TABLET GT SCH (08:58)
[2017-03-25] MEDS: BETHANECHOL CHLORIDE (25 MG) 25 MG TABLET GT SCH (08:58)
[2017-03-25] MEDS: DOCUSATE SODIUM LIQ 100 MG/10 ML UDC GT SCH (08:58)
[2017-03-25] MEDS: AMLODIPINE BESYLATE 10 MG TABLET GT SCH (09:00)
[2017-03-25] MEDS: MUPIROCIN OINT 2% 22 GM TUBE SCH ×2 (09:01→21:39)
[2017-03-25] MEDS: ZINC SULFATE 220 MG CAPSULE GT SCH (09:01)
[2017-03-25] MEDS: Z GUARD REMEDY 2 OZ OINT TP SCH (09:02)
[2017-03-25] MEDS: HYDROGEL DRESSING 90 GM TUBE TP SCH (09:03)
--- NOTE | 2017-03-25 09:11 | NUR ---
RN NOTES WHILE CRUSHING MEDS. VITAMIN C SUPPLEMENT FELL INTO IV BAG TRASH CONTAINER. REMOVED SECOND VITAMIN C. REPORTED TO PHARMACY AND CHARGE.
--- NOTE | 2017-03-25 09:20 | NUR ---
RN NOTES PRIOR TO MEDICATION ADMINISTRATION GTUBE INSPECTED. RESIDUALS OF 45 ML NOTES. GTUBE PATENT AND INTACT. FLUSHING EASILY.
--- NOTE | 2017-03-25 09:28 | NUR ---
RN NON ADMIN. NOTES HELD PATIENT NORVASC DUE TO BRADYCARDIA. NOTIFIED MD. VERBALIZED THAT THIS IS APPROPRIATE. PATIENT HR AT THIS TIME IS 55. WILL CONTINUE TO MONITOR =.
[2017-03-25] MEDS: CHLORHEXIDINE GLUCONATE 15 ML UDC MM SCH ×2 (10:29→21:39)
[2017-03-25] MEDS: CEFTRIAXONE 1 G in IV D5W 50 ML IV SCH (11:00)
[2017-03-25 12:00] VITALS: BP_SYST 100; BP_SYST 128; BP_DIAS 58; BP_DIAS 59
[2017-03-25] MEDS: IV D5W 1,000 ML IV PRN ×2 (12:20→22:11)
[2017-03-25 16:00] VITALS: BP 126/69
[2017-03-25 16:49] LABS: CREATININE, URINE 17.2 MG/DL (30.0-125.0)
--- NOTE | 2017-03-25 19:35 | NUR ---
RN CLOSING NOTES PATIENT IS RESTING IN BED COMFORTABLE WITH EYES CLOSED. PATIENT IS NON VERBAL. PATIENT HAS VENT SUPPORT IN PLACE PORTEX:7, AC:12, FIO2: 40%, TV: 500, PEEP: 5. PATIENT ON ISOLATION. TELE MONITORING READING SR/SB 60. PATIENT HAS MITTENS ON. GT FEEDING RUNNING AT 70ML/HR CONTINUOUSLY. D5W RUNNING AT 100ML/HR. IV PATENT AND INTACT. ALL NEEDS MET DURING SHIFT. ALL MEDS GIVEN APPROPRIATE. BED LOCKED IN THE LOWEST POSITION WITH SIDE RAILS UP X2. CALL LIGHT WITHIN REACH. HOB ELEVATED. WILL CONTINUE TO MONITOR.
--- NOTE | 2017-03-25 19:43 | NUR ---
TELE/RN NOTES RECEIVED PT. LYING IN BED. PT. IS NON VERBAL TRACH-VENT DEPENDENT. BREATHING EVEN AND UNLABORED. PT. WITH PORTEX 7 TRACH PRESENT. CURRENT VENT SETTINGS: AC:12, TV 500, FIO2 40%, PEEP 5. PT. WITH EXTERNAL COMMERCIAL REAL ESTATE ATTORNEY PRESENT AND INTACT CURRENT RHYTHM = SINUS RHYTHM HR 60. PT. WITH RIGHT WRIST 20 GAUGE IV SALINE LOCK PRESENT AND INTACT. PT. WITH LEFT FOREARM 20 GAUGE PERIPHERAL IV PRESENT, PATENT AND INTACT ADMINISTERING TO PT. D5W @ 100 ML/HR. PT. WITH PEG TUBE PRESENT, PATENT AND INTACT ADMINISTERING TO PT. GLYTROL @ 70ML/HR. PT. TOLERATING WELL. NO RESIDUALS NOTED AT THIS TIME. PT. WITH DERAS CATHETER PRESENT, PATENT AND INTACT DRAINING CLEAR YELLOW URINE. BED IN LOWEST POSITION, CALL LIGHT WITHIN REACH, SIDE RAILS UP X3, WILL CONTINUE TO MONITOR.
[2017-03-25 21:09] VITALS: BP 157/71
[2017-03-25] MEDS: ATORVASTATIN 40 MG TABLET GT SCH (21:39)
[2017-03-25] MEDS: TAMSULOSIN 0.4 MG CAP.SR.24H GT SCH (21:39)
[2017-03-26] VITALS (7 sets, daily range): BP systolic 148–169; BP diastolic 60–89
[2017-03-26] MEDS: ACETYLCYSTEINE 10% SOLN 400 MG/4 ML VIAL NEB SCH ×4 (00:09→22:42)
[2017-03-26] MEDS: BLOOD SUGAR DIAGNOSTIC 1 EACH STRIP IN SCH ×3 (06:55→17:47)
[2017-03-26] MEDS: INSULIN REGULAR, HUMAN 100 UNIT/ML 3 ML VIAL SQ PRN ×3 (06:58→17:57)
--- NOTE | 2017-03-26 07:05 | NUR ---
TELE/RN NOTES PT. IS LYING IN BED RESTING. PT. IS NON VERBAL TRACH-VENT DEPENDENT. BREATHING EVEN AND UNLABORED. PT. WITH PORTEX 7 TRACH PRESENT. CURRENT VENT SETTINGS: AC:12, TV 500, FIO2 40%, PEEP 5. PT. WITH EXTERNAL CIVIL DRAFTING TECHNICIAN PRESENT AND INTACT CURRENT RHYTHM = SINUS RHYTHM HR 60. PT. WITH RIGHT WRIST 20 GAUGE IV SALINE LOCK PRESENT AND INTACT. PT. WITH LEFT FOREARM 20 GAUGE PERIPHERAL IV PRESENT, PATENT AND INTACT ADMINISTERING TO PT. D5W @ 100 ML/HR. PT. WITH PEG TUBE PRESENT, PATENT AND INTACT ADMINISTERING TO PT. GLYTROL @ 70ML/HR. PT. TOLERATING WELL. NO RESIDUALS NOTED AT THIS TIME AND THROUGHOUT SHIFT. PT. WITH DERAS CATHETER PRESENT, PATENT AND INTACT EMPTIED 1200 ML CLEAR YELLOW URINE. ALL PT. NEEDS MET. PT. OFFLOADED. TURNED AND REPOSITIONED Q2H AND NEEDED. BED IN LOWEST POSITION, CALL LIGHT WITHIN REACH, SIDE RAILS UP X3, WILL ENDORSE TO DAYSHIFT NURSE FOR CONTINUITY OF CARE.
--- NOTE | 2017-03-26 07:20 | NUR ---
LOCAL HAZMAT DRIVER NOTE RECEIVED REPORT ON PATIENT. PATIENT IS IN BED WITH EYES OPEN. NON-VERBAL (VENT). VENT SETTINGS ORDERED. PATIENT IS WAS PLACED IN MITTENS LAST NIGHT AT 8 PM. 24 HOUR ORDER OBTAINED. RN EVALUATED THE NEED FOR RESTRAINTS. PATIENT STILL REQUIRES RESTRAINTS, HE TRIED TO PULL OUT THE TRACH TUBE ONCE THE RESTRAINT WAS REMOVED. RN WAS ABLE TO STOP THE PATIENT AND TRACH REMAINED INTACT. RN EXPLAINED THE NEED AND PURPOSE OF RESTRAINT TO PATIENT. UNABLE TO ASSESS THE LEVEL OF UNDERSTANDING OF THE TEACHING. BED IN LOCKED POSITION, SIDE RAILS UP X 2, BED ALARM ON, ALL NEEDS MET AT THIS TIME. WILL COME BEACK TO REASSESS THE PATIENT.
[2017-03-26] MEDS: PANTOPRAZOLE 40 MG/PACK PACK GT SCH (08:21)
[2017-03-26] MEDS: BETHANECHOL CHLORIDE (25 MG) 25 MG TABLET GT SCH (08:23)
[2017-03-26] MEDS: DOCUSATE SODIUM LIQ 100 MG/10 ML UDC GT SCH (08:23)
[2017-03-26] MEDS: CHLORHEXIDINE GLUCONATE 15 ML UDC MM SCH ×2 (08:23→21:23)
[2017-03-26] MEDS: MULTIVIT, IRON, MIN NO. 8, FA 1 TAB GT SCH (08:23)
[2017-03-26] MEDS: CHOLECALCIFEROL 1,000 UNIT TABLET (VIT D3) GT SCH (08:24)
[2017-03-26] MEDS: FOLIC ACID 1 MG TABLET GT SCH (08:24)
[2017-03-26] MEDS: ASPIRIN 81 MG TAB.CHEW GT SCH (08:24)
[2017-03-26] MEDS: FINASTERIDE (5 MG) 5 MG TABLET GT SCH (08:24)
[2017-03-26] MEDS: ASCORBIC ACID 500 MG TABLET GT SCH (08:24)
[2017-03-26] MEDS: ZINC SULFATE 220 MG CAPSULE GT SCH (08:24)
[2017-03-26] MEDS: AMLODIPINE BESYLATE 10 MG TABLET GT SCH (08:25)
[2017-03-26] MEDS: MUPIROCIN OINT 2% 22 GM TUBE SCH ×2 (08:25→21:50)
[2017-03-26] MEDS: Z GUARD REMEDY 2 OZ OINT TP PRN (08:26)
[2017-03-26] MEDS: HYDROGEL DRESSING 90 GM TUBE TP SCH (08:40)
[2017-03-26] MEDS: Z GUARD REMEDY 2 OZ OINT TP SCH (08:40)
[2017-03-26] MEDS: IV D5W 1,000 ML IV PRN ×2 (08:44→21:27)
[2017-03-26 09:15] LABS: BASOPHILS % (AUTO) 0.2 % (0.0-2.0); EOSINOPHILS # (AUTO) 0.4 /CMM (0.0-0.7); EOSINOPHILS % (AUTO) 3.7 % (0.0-6.0); HEMATOCRIT 30 % (39-51); HEMOGLOBIN 9.8 g/dL (13.5-17.5); LYMPHOCYTES % (AUTO) 8.7 % (20.0-44.0); MEAN CORPUSCULAR HEMOGLOBIN 28 PG (26.0-33.0); MEAN CORPUSCULAR HGB CONC 32 g/dl (31.0-36.0); MEAN CORPUSCULAR VOLUME 88 fL (80-96); MONOCYTES # (AUTO) 0.5 /CMM (0.1-1.30); MONOCYTES % (AUTO) 4.6 % (2.0-12.0); NEUTROPHILS # (AUTO) 9.3 /CMM (1.8-8.9); NEUTROPHILS % (AUTO) 82.8 % (43.0-81.0); PLATELET COUNT (AUTO) 234 /CMM (150-450); RDW COEFFICIENT OF VARIATION 17.9 (11.5-15.0); RED BLOOD CELL COUNT(AUTO) 3.44 MIL/uL (4.5-6.0); WHITE BLOOD COUNT (AUTO) 11.3 K/uL (4.3-11.0)
[2017-03-26 09:39] LABS: CALCIUM, SERUM 8.5 mg/dL (8.5-10.1); CREATININE 1.4 mg/dL (0.6-1.3); POTASSIUM 4.3 mmol/L (3.5-5.1)
--- NOTE | 2017-03-26 10:30 | NUR ---
INSURANCE CLAIMS EXAMINER NOTES CONFIRMED WITH DR PATRICK TUBE FEEDING CONTINUOUS 24H. NO NEED TO PAUSE FOR 4 HOURS
--- NOTE | 2017-03-26 11:45 | NUR ---
DENTIST ATTENDANT NOTES DR JOSEY WIGGINS AT BEDSIDE FOR EVAL.
[2017-03-26] MEDS: CEFTRIAXONE 1 G in IV D5W 50 ML IV SCH (11:58)
--- NOTE | 2017-03-26 14:19 | NUR ---
PATIENT FINANCIAL COORDINATOR NOTES SPOKE WITH PATIENT SON RAY AND UPDATED ON PATIENT CONDITION/CARE PLAN. SON AWARE WHY PATIENT HAS MITTENS ON AND IT OK WITH THIS TO BE CONTINUED
[2017-03-26] MEDS ORDERED: GLYTROL 1,000 ML BAG GT PRN (17:00)
[2017-03-26] MEDS: EPOETIN ALFA (10,000 UNIT) 10,000 UNIT/ML VIAL SQ SCH (17:58)
--- NOTE | 2017-03-26 19:36 | NUR ---
LEAD TECHNICAL WRITER CLOSING NOTE PATIENT IS RESTING IN BED. VENTILATOR SETTINGS ORDERED. ENTERAL FEEDING ORDERED. BED IS LOCKED IN THE LOWEST POSITION, SIDE RAILS UP X 3, BED ALARM ON, ENCINAS'S POSITION. ALL NEEDS WARTHIN REACH. VS WNL. EXTERNAL MONITOR READING SR 65. PATIENT IS STABLE. WILL ENDORSE TO THE NEXT SHIFT FOR ROSALIA.
--- NOTE | 2017-03-26 19:55 | NUR ---
TELE/RN RECEIVE PATIENT AWAKE, PASSIVE AFFECT, NON VERBAL, MECH VENT WORKING WELL, GT FEEDING INFUSING, NO RESIDUAL NOTED, PATIENT APPEAR COMFORTABLE, NO SIGNS OF DISTRESS NOTED. WILL MONITOR.
[2017-03-26] MEDS: TAMSULOSIN 0.4 MG CAP.SR.24H GT SCH (21:23)
[2017-03-26] MEDS: ATORVASTATIN 40 MG TABLET GT SCH (21:23)
--- NOTE | 2017-03-26 21:56 | NUR ---
TELE/RN ORAL CARE DONE. SUCTION ORALLY.
[2017-03-27] MEDS: BLOOD SUGAR DIAGNOSTIC 1 EACH STRIP IN SCH ×3 (00:08→11:38)
[2017-03-27] MEDS: INSULIN REGULAR, HUMAN 100 UNIT/ML 3 ML VIAL SQ PRN ×3 (00:09→11:50)
[2017-03-27 00:38] VITALS: BP 161/81
[2017-03-27 04:17] VITALS: BP 165/56
--- NOTE | 2017-03-27 05:11 | NUR ---
TELE/RN MORNING CARE WAS DONE. TOTAL LINEN CARE, SKIN CARE, MOUTH CARE, F/C CARE WERE DONE. TRACH CARE DONE, TOLERATED. GT SITE DRESSING WAS CHANGED. REPOSITIONED TO COMFORT. HOB ELEVATED. WILL CONTINUE TO MONITOR.
[2017-03-27 06:42] LABS: BASOPHILS % (AUTO) 0.2 % (0.0-2.0); EOSINOPHILS # (AUTO) 0.3 /CMM (0.0-0.7); EOSINOPHILS % (AUTO) 3.5 % (0.0-6.0); HEMATOCRIT 27 % (39-51); HEMOGLOBIN 8.8 g/dL (13.5-17.5); LYMPHOCYTES % (AUTO) 10.1 % (20.0-44.0); MEAN CORPUSCULAR HEMOGLOBIN 28 PG (26.0-33.0); MEAN CORPUSCULAR HGB CONC 32 g/dl (31.0-36.0); MEAN CORPUSCULAR VOLUME 88 fL (80-96); MONOCYTES # (AUTO) 0.5 /CMM (0.1-1.30); MONOCYTES % (AUTO) 5.2 % (2.0-12.0); NEUTROPHILS # (AUTO) 8.1 /CMM (1.8-8.9); PLATELET COUNT (AUTO) 217 /CMM (150-450); RDW COEFFICIENT OF VARIATION 18.2 (11.5-15.0); RED BLOOD CELL COUNT(AUTO) 3.09 MIL/uL (4.5-6.0)
[2017-03-27 06:52] LABS: CALCIUM, SERUM 8.2 mg/dL (8.5-10.1); CREATININE 1.3 mg/dL (0.6-1.3); POTASSIUM 4.6 mmol/L (3.5-5.1)
--- NOTE | 2017-03-27 07:14 | NUR ---
TELE/RN APPEAR SLEEPING, APPEAR COMFORTABLE, NO DISTRESS NOTED, ALL NEEDS ATTENDED AT THIS TIME. ENDORSED TO NEXT RN FOR CONTINUITY OF CARE.
--- NOTE | 2017-03-27 07:15 | NUR ---
MACHINE OPERATOR HOP PICKER OPENING NOTE PATIENT IS IN BED WITH EYES OPEN. VENT SETTING ORDERED. SR 78. FLUIDS RUNNING ORDERED. WILL RETURN TO ASSESS PATIENT LATER.
[2017-03-27] MEDS: ACETYLCYSTEINE 10% SOLN 400 MG/4 ML VIAL NEB SCH ×2 (07:17→15:13)
[2017-03-27 08:00] VITALS: BP 143/63
[2017-03-27] MEDS: IV D5W 1,000 ML IV PRN (08:11)
[2017-03-27] MEDS: CHLORHEXIDINE GLUCONATE 15 ML UDC MM SCH (08:11)
[2017-03-27] MEDS: FOLIC ACID 1 MG TABLET GT SCH (08:12)
[2017-03-27] MEDS: FINASTERIDE (5 MG) 5 MG TABLET GT SCH (08:12)
[2017-03-27] MEDS: ASCORBIC ACID 500 MG TABLET GT SCH (08:12)
[2017-03-27] MEDS: PANTOPRAZOLE 40 MG/PACK PACK GT SCH (08:12)
[2017-03-27] MEDS: ASPIRIN 81 MG TAB.CHEW GT SCH (08:12)
[2017-03-27] MEDS: DOCUSATE SODIUM LIQ 100 MG/10 ML UDC GT SCH (08:12)
[2017-03-27] MEDS: BETHANECHOL CHLORIDE (25 MG) 25 MG TABLET GT SCH (08:12)
[2017-03-27] MEDS: MULTIVIT, IRON, MIN NO. 8, FA 1 TAB GT SCH (08:12)
[2017-03-27] MEDS: ZINC SULFATE 220 MG CAPSULE GT SCH (08:12)
[2017-03-27] MEDS: AMLODIPINE BESYLATE 10 MG TABLET GT SCH (08:13)
[2017-03-27] MEDS: CHOLECALCIFEROL 1,000 UNIT TABLET (VIT D3) GT SCH (08:13)
[2017-03-27] MEDS: Z GUARD REMEDY 2 OZ OINT TP SCH (08:14)
[2017-03-27] MEDS: HYDROGEL DRESSING 90 GM TUBE TP SCH (08:14)
[2017-03-27] MEDS: MUPIROCIN OINT 2% 22 GM TUBE SCH (08:15)
[2017-03-27 10:00] VITALS: BP 143/63
[2017-03-27] MEDS ORDERED: NUT.100029 GT (10:56)
[2017-03-27] MEDS ORDERED: CEFT1FRO2 IV (11:02)
[2017-03-27] MEDS: CEFTRIAXONE 1 G in IV D5W 50 ML IV SCH (11:34)
[2017-03-27 12:00] VITALS: BP 143/61
--- NOTE | 2017-03-27 16:10 | NUR ---
STATISTICIAN APPLIED DISCHARGE NOTE PATIENT IS BEING DISCHARGED AND TRANSPORTED TO [facility] VIA EMT SERVICE. TELEPHONE REPORT GIVEN TO SUSIE AT RECEIVING FACILITY. DISCHARGE PACKED GIVEN TO EMT. PATIENT IS STABLE AT THE TIME OF THE DISCHARGE. IV IS REMOVED, G-TUBE IS FLUSHED AND CLAMPED. CALLED PATIENT'S SON EVE HARVEY AND DAUGHTER YULI TO INFORM OF FATHER'S DISCHARGE AND LEFT A VOICEMAIL TO CALL BACK TO HOSPITAL FOR INFORMATION ABOUT THE FATHER. NO PHONE CALL RECEIVED AT THIS TIME. PATIENT IS LEAVING THE UNIT AVCCOMPANIED BY THREE MARINA DRY DOCK MANAGER. ALL BELONGINGS ARE ACCOUNTED FOR.
== END 2017-03-27 16:30 | DRG 207 ==
LOC: ER 13:49 → TELE 16:24
PROVIDERS: ADMIT Internal Medicine; ATTEND Internal Medicine
PROC: 5A1955Z Respiratory Ventilation, Greater than 96 Consecutive Hours (ICD-10-PCS; principal; 2017-03-22)
DX: T17.890A Other foreign object in other parts of respiratory tract causing asphyxiation, initial encounter (principal); N17.0 Acute kidney failure with tubular necrosis; E43 Unspecified severe protein-calorie malnutrition; G92 Toxic encephalopathy; J90 Pleural effusion, not elsewhere classified; J96.21 Acute and chronic respiratory failure with hypoxia; L89.153 Pressure ulcer of sacral region, stage 3; R53.2 Functional quadriplegia; E87.0 Hyperosmolality and hypernatremia; D68.59 Other primary thrombophilia; I13.0 Hypertensive heart and chronic kidney disease with heart failure and stage 1 through stage 4 chronic kidney disease, or unspecified chronic kidney disease; Z99.11 Dependence on respirator [ventilator] status; N39.0 Urinary tract infection, site not specified; J98.19 Other pulmonary collapse; I50.9 Heart failure, unspecified; R13.10 Dysphagia, unspecified; E11.51 Type 2 diabetes mellitus with diabetic peripheral angiopathy without gangrene; E11.22 Type 2 diabetes mellitus with diabetic chronic kidney disease; E86.0 Dehydration; I73.9 Peripheral vascular disease, unspecified; Z93.0 Tracheostomy status; Z93.1 Gastrostomy status; Z89.511 Acquired absence of right leg below knee; Z86.73 Personal history of transient ischemic attack (TIA), and cerebral infarction without residual deficits; Z82.49 Family history of ischemic heart disease and other diseases of the circulatory system; Z82.3 Family history of stroke; Z79.899 Other long term (current) drug therapy; Z79.82 Long term (current) use of aspirin; N40.0 Benign prostatic hyperplasia without lower urinary tract symptoms; N18.9 Chronic kidney disease, unspecified; K21.9 Gastro-esophageal reflux disease without esophagitis; E87.5 Hyperkalemia; E78.5 Hyperlipidemia, unspecified; E66.01 Morbid (severe) obesity due to excess calories; D64.9 Anemia, unspecified; B96.4 Proteus (mirabilis) (morganii) as the cause of diseases classified elsewhere; D63.8 Anemia in other chronic diseases classified elsewhere; X58.XXXA Exposure to other specified factors, initial encounter; Y92.129 Unspecified place in nursing home as the place of occurrence of the external cause; L08.9 Local infection of the skin and subcutaneous tissue, unspecified
CPT/HCPCS: 31720; 36415; 36600; 71010-TC; 71250-TC; 76770-TC; 80048-TC; 80053-TC; 80061-TC; 80076-TC; 81000-TC; 82570-TC; 82746; 82803-TC; 82962-TC; 83540-TC; 83735-TC; 84100-TC; 84300-TC; 84443-TC; 85025-TC; 85730-TC; 87040-TC; 87070-TC; 87081-TC; 87086-TC; 87186-TC; 93307-TC; 94002-TC; 94003-TC; 94640-TC; 94667-TC; 94668-TC; 94762-TC; 99082-TC; A4606; A6248; J0696; J0885; J1815; J7030; J7042; J7060; J7070; Z7610

== ENCOUNTER 2017-07-22 15:16 | Inpatient (IN) | payer OTHER, MEDICARE ==
[~2017-07-22] VITALS: Ht 170.2 cm; Wt 87.5 kg
[~2017-07-22 15:16] MED LIST: ACET-2605 GT; ACET160S2 GT; AMIN30LI4 GT; AMLO10TA2 GT; ASCO500S2 GT; ASPI-1169 GT; ATOR40TA GT; BETH25TA GT; BLOO-668 IN; CEFT1FRO2 IV; CHLO15MO2 MM; CHOL100044 GT; DOCU50LI GT; EPOE1VIA6 SQ; FINA5TAB11 GT; FOLI1TAB16 GT; INSU100V27 SQ; IPRA3AMP IH; MAGN400O6 GT; MULT-659 GT; NA P133E RC; NAPH1POW3 GT; NUT.100029 GT; NUT.237L31 GT; NUTR1PAC14 GT; OMEP20CA10 GT; TAMS-12 GT; ZINC220C8 GT
[2017-07-22] MEDS ORDERED: FUROSEMIDE 40 MG/4 ML VIAL IV ONE (15:30)
[2017-07-22] MEDS ORDERED: ASPIRIN 325 MG TABLET PO ONE (15:30)
[2017-07-22] MEDS ORDERED: NITROGLYCERIN PACKET 1 GM PACKET TD ONE (15:30)
--- NOTE | 2017-07-22 15:40 | NUR ---
BB PRIVATE EMS FROM [facility] FOR CHF EXACERBATION SENT BY PMD. VENT/TRACH WITH GTUBE. SEEN BY MD FOR EVAL. NOTED R AKA. NOTED TESTICULAR SWELLING, ABD DISTENTION. VSS. SAFETY AND COMFORT MEASURES PROVIDED. WILL MONITOR.
[2017-07-22] MEDS ORDERED: ASPIRIN 325 MG TABLET ONE (15:44)
[2017-07-22] MEDS ORDERED: FUROSEMIDE 40 MG/4 ML VIAL ONE (15:46)
[2017-07-22] MEDS ORDERED: NITROGLYCERIN PACKET 1 GM PACKET ONE (15:47)
--- NOTE | 2017-07-22 15:50 | NUR ---
IV ACCESS STARTED. BLOOD AND CULTURES DRAWN. MEDICATED ORDERED.
[2017-07-22 16:00] LABS: BASOPHILS % (AUTO) 0.1 % (0.0-2.0); EOSINOPHILS # (AUTO) 0.2 /CMM (0.0-0.7); EOSINOPHILS % (AUTO) 1.2 % (0.0-6.0); LYMPHOCYTES # (AUTO) 0.4 /CMM (0.8-4.8); LYMPHOCYTES % (AUTO) 2.6 % (20.0-44.0); MEAN CORPUSCULAR HEMOGLOBIN 26 PG (26.0-33.0); MEAN CORPUSCULAR HGB CONC 34 g/dl (31.0-36.0); MEAN CORPUSCULAR VOLUME 77 fL (80-96); NEUTROPHILS # (AUTO) 12.1 /CMM (1.8-8.9); NEUTROPHILS % (AUTO) 89.1 % (43.0-81.0); PLATELET COUNT (AUTO) 197 /CMM (150-450); RDW COEFFICIENT OF VARIATION 17.9 (11.5-15.0); RED BLOOD CELL COUNT(AUTO) 2.62 MIL/uL (4.5-6.0); WHITE BLOOD COUNT (AUTO) 13.7 K/uL (4.3-11.0)
[2017-07-22 16:03] LABS: HEMATOCRIT 20 % (39-51); HEMOGLOBIN 6.8 g/dL (13.5-17.5)
[2017-07-22] MEDS ORDERED: CRAN3875 GT (16:03)
[2017-07-22] MEDS ORDERED: BISA10SU8 RC (16:03)
[2017-07-22] MEDS ORDERED: FERR-58 GT (16:03)
[2017-07-22] MEDS ORDERED: NUT.237L67 GT (16:03)
[2017-07-22 16:07] LABS: INR 1.37 (0.87-1.13); PROTHROMBIN TIME 14.2 SECS (9.5-12.7)
[2017-07-22 16:11] LABS: TROPONIN I < 0.017 ng/mL (0.00-0.056)
--- NOTE | 2017-07-22 16:15 | NUR ---
FC INITIATED. URINE SAMPLE COLLECTED. MADE AWARE.
[2017-07-22 16:21] LABS: ALANINE AMINOTRANSFERASE 40 U/L (12-78); ALKALINE PHOSPHATASE 216 U/L (46-116); ASPARTATE AMINOTRANSFERASE 41 U/L (15-37); B-TYPE NATRIURETIC PEPTIDE 16019 PG/ML (0-125); BILIRUBIN,DIRECT 0.1 mg/dL (0.0-0.2); BILIRUBIN,TOTAL 0.4 mg/dL (0.2-1.0); CALCIUM, SERUM 8.6 mg/dL (8.5-10.1); CARBON DIOXIDE 26 mmol/L (21-32); CHLORIDE 95 mmol/L (98-107); CREATININE 2.8 mg/dL (0.6-1.3); GLUCOSE 211 mg/dL (74-106); POTASSIUM 3.7 mmol/L (3.5-5.1); SODIUM SERUM 128 mmol/L (136-145); TOTAL PROTEIN, SERUM 6.8 g/dL (6.4-8.2)
[2017-07-22 16:23] LABS: UREA NITROGEN, BLOOD 110 mg/dL (7-18)
[2017-07-22 16:39] LABS: BAND % (MANUAL) 6 % (0.0-5.0); EOSINOPHILS % (MANUAL) 2 % (0-4); LYMPHOCYTES % (MANUAL) 4 % (16-48); MONOCYTES % (MANUAL) 7 % (0-11.0); NEUTROPHILS % (MANUAL) 81 (42-76)
--- NOTE | 2017-07-22 16:42 | NUR ---
JANIS 102
--- NOTE | 2017-07-22 16:50 | NUR ---
TD RN NOTES STILL WAITING FOR AX AND PROTONIX DRIP TO BE DELIVERED FROM PHARMACY. WILL ENDORSE TO RN FOR ROSALIA
[2017-07-22 17:19] LABS: APPEARANCE,URINE Turbid (CLEAR); BILIRUBIN,URINE Negative (NEGATIVE); BLOOD, URINE Large Ery/uL (NEGATIVE); COLOR,URINE Yellow (YELLOW); KETONES,URINE Negative (NEGATIVE); LEUKOCYTE ESTERASE ,URINE Large (NEGATIVE); NITRITE, URINE Negative (NEGATIVE); PH,URINE 5.5 (5.0-8.0); PROTEIN,URINE >=300 mg/dl (NEGATIVE); UGLUCOSE Negative (NEGATIVE); UROBILINOGEN,URINE 0.2 EU/dL (0.2)
[2017-07-22] MEDS ORDERED: CEFTRIAXONE 1GM BAG (ER ONLY) 50 ML IV ONE ×2 (17:30→17:38)
--- NOTE | 2017-07-22 17:30 | NUR ---
REPORT GIVEN TO SABI ANAYA FOR JANIS
--- NOTE | 2017-07-22 17:45 | NUR ---
TD RN OPENING RECEIVED PATIENT FROM ER. VENT DEPENDENT. PATIENT OBTUNDED EYES OPEN. IV PATENT INTACT ON LEFT HAND. MESSAGE LEFT FOR PATIENT DPOA FOR BLOOD TRANSFUSION CONSENT PATIENT IS COMFORT MEASURES AND DNR. PER MIKY GRIFFIN OK TO WAIT FOR CONSENT FROM FAMILY AND NOT AN EMERGENT BLOOD TRANSFUSION. PATIENT HAS DERAS CATH IN PLACE WITH TURBID YELLOW URINE ALMOST PUSSY LOOKING. PATIENT HAS NO S/S PAIN WITH FLACC 0, NO SOB OR DIFFICULTY BREATHING TOLERATING VENT. PER MIKY NO FLUID CHALLENGE PATIENT HAS CHF WELL.
[2017-07-22 18:00] VITALS: BP 130/54
[2017-07-22] MEDS ORDERED: ACETAMINOPHEN 650 MG/SUPP.RECT RC PRN (18:00)
[2017-07-22] MEDS ORDERED: MORPHINE SULFATE INJ 2 MG/ML DISP.SYRIN IV PRN (18:00)
[2017-07-22] MEDS ORDERED: MAG HYDROX/AL HYDROX/SIMETH 30 ML UDC PO PRN (18:00)
[2017-07-22] MEDS ORDERED: ACETAMINOPHEN 325 MG TABLET PO PRN (18:00)
[2017-07-22] MEDS ORDERED: ONDANSETRON HCL/PF 4 MG/2 ML VIAL IVP PRN (18:00)
[2017-07-22] MEDS ORDERED: LORAZEPAM INJ 2 MG/ML VIAL IV PRN (18:00)
[2017-07-22] MEDS ORDERED: MAGNESIUM HYDROXIDE 30 ML UDC GT PRN (18:00)
--- NOTE | 2017-07-22 18:15 | NUR ---
TD RN NOTES PER MIKY GRIFFIN DC PEPCID AND ORDER PROTONIX BOLUS 80MG ONCE AND THEN PROTONIX DRIP AT 50ML/HOUR.
[2017-07-22] MEDS ORDERED: PANTOPRAZOLE 80 MG in IV NS 0.9% 100 ML IV ONE (18:30)
[2017-07-22] MEDS ORDERED: PANTOPRAZOLE 80 MG in IV NS 0.9% 500 ML IV PRN (18:30)
[2017-07-22] MEDS ORDERED: FEE PK DOSING 1 MIN EA MC ONE (18:39)
[2017-07-22 18:51] LABS: BACTERIA,URINE Many /HPF (None Seen); RBC,URINE 21-50 /HPF (0-2); SQUAMOUS EPITHELIAL CELL,UR Few /HPF (None Seen); WBC,URINE 51-80 /HPF (0-3)
[2017-07-22] MEDS ORDERED: VANCOMYCIN 1 GM in IV D5W 250 ML IV ONE (19:00)
--- NOTE | 2017-07-22 19:00 | NUR ---
TD RN CLOSING PATIENT STABLE AT THIS TIME. VS STABLE. CARE ENDORSED TO RN FOR ROSALIA. PATIENT HOB ELEVATED. PATIENT SUCTIONED. ALL DRESSINGS CHANGED AND SKIN CARE COMPLETED. CARE ENDORSED TO RN FOR ROSALIA. MULTIPLE CALLS TO MULTIPLE FAMILY MEMBERS FOR BLOOD TRANSFUSION CONSENT WITHOUT ANSWER. PER MIKY DO NOT GIVE BLOOD TRANSFUSION UNTIL CONSENT FROM FAMILY PATIENT IS SELECTIVE TREATMENT CODE STATUS.
--- NOTE | 2017-07-22 19:30 | NUR ---
INITIAL ASSESSMENT. RECEIVED THE PT REST ON THE BED. TRACH TO VENT CONNECTED. GT SITE FRESH BLEEDING NOTED. PORTEX#8, AC 12,TV 550,FIO2 40%, PEEP 5. SAT 99%. NO ACUTE DISTRESS NOTED. CERTIFIED NURSE PRACTITIONER SHOWING S JUANPABLO. IV RT UPPER ARM MID LINE. LT HAND 20G. FC PATENT. HOB ELEVATED. AFEBRILE. WILL CONTINUE TO MONITOR VITALS.
[2017-07-22 20:00] VITALS: BP 131/52
[2017-07-22] MEDS: PIPERACILLIN /TAZOBACTAM 2.25 G in IV D5W 50 ML IV SCH (20:02)
[2017-07-22] MEDS: IV NS 0.9% 100 ML BAG IV PRN (20:03)
[2017-07-22] MEDS ORDERED: FAMOTIDINE/PF INJ 20 MG/2 ML VIAL IV SCH (21:00)
--- NOTE | 2017-07-22 21:00 | NUR ---
RN NOTE. GT SITE CONTINUES BLEEDING NOTED. PAGED UNLOAD ASSOCIATE KATE RODGERS. NEW ORDER RECEIVED. PT NEED BLOOD TRANSFUSION CALLED X2. PT DPOA NO ANSWER. PT NEED EMERGENCY BLOOD TRANSFUSION. I CALLED 2 DR FOR BLOOD TRANSFUSION CONSENT . KATE RODGERS MADE AWARE. CONSENT TAKEN.
[2017-07-22 23:42] VITALS: BP 107/45
[2017-07-23] VITALS (80 sets, daily range): BP systolic 92–133; BP diastolic 21–99
--- NOTE | 2017-07-23 00:55 | NUR ---
BARGE MASTER. I UNIT PRBC STARTED, DURING TRANSFUSION NO COMPLICATION NOTED. WILL CONTINUE TO MONITOR.
--- NOTE | 2017-07-23 00:57 | NUR ---
RN NOTE. PT GT SITE TIGHT DRESSING DONE, WILL CONTINUE TO MONITOR VITALS.
--- NOTE | 2017-07-23 01:45 | NUR ---
RN NOTE. BLOOD FINISHED. DURING SHIFT NO COMPLICATION NOTED.
[2017-07-23] MEDS: PIPERACILLIN /TAZOBACTAM 2.25 G in IV D5W 50 ML IV SCH ×5 (02:27→23:24)
--- NOTE | 2017-07-23 03:36 | NUR ---
RN NOTE. 2ND UNIT PRBC STARTED, STILL GT SITE BLEEDING. WILL CONTIN UE TO MONITOR.
--- NOTE | 2017-07-23 03:37 | NUR ---
RN NOTE ORAL CARE. BED BATH GIVEN. LINEN CHANGED. REMAINING SAME VENT SETTING TOLERATED WELL. SAT 99%. NO ACUTE DISTRESS NOTED. LOBSTER CATCHER SHOWING S JUANPABLO. IV LT UPPER ARM MID LINE. PROTONIX 50ML/H. 2ND UNIT BLOOD RUNNING. FC PATENT, GT SITE STILL BLEEDING, TIGHT DRESSING DONE. HOB ELEVATED. NPO. TURN AND REPOSITION Q2H. WILL CONTINUE TO MONITOR VITALS.
[2017-07-23 06:30] LABS: BASOPHILS % (AUTO) 0.1 % (0.0-2.0); EOSINOPHILS # (AUTO) 0.2 /CMM (0.0-0.7); LYMPHOCYTES # (AUTO) 0.6 /CMM (0.8-4.8); LYMPHOCYTES % (AUTO) 6.1 % (20.0-44.0); MEAN CORPUSCULAR HEMOGLOBIN 26 PG (26.0-33.0); MEAN CORPUSCULAR HGB CONC 33 g/dl (31.0-36.0); MEAN CORPUSCULAR VOLUME 79 fL (80-96); MONOCYTES # (AUTO) 0.6 /CMM (0.1-1.30); NEUTROPHILS # (AUTO) 8.2 /CMM (1.8-8.9); NEUTROPHILS % (AUTO) 85.8 % (43.0-81.0); PLATELET COUNT (AUTO) 138 /CMM (150-450); RED BLOOD CELL COUNT(AUTO) 2.04 MIL/uL (4.5-6.0); WHITE BLOOD COUNT (AUTO) 9.6 K/uL (4.3-11.0)
[2017-07-23 06:50] LABS: CALCIUM, SERUM 7.8 mg/dL (8.5-10.1); CREATININE 2.6 mg/dL (0.6-1.3); MAGNESIUM 2.5 mg/dL (1.8-2.4); PHOSPHORUS 4.6 mg/dL (2.5-4.9); POTASSIUM 3.8 mmol/L (3.5-5.1)
[2017-07-23 07:01] LABS: HEMATOCRIT 16 % (39-51); HEMOGLOBIN 5.3 g/dL (13.5-17.5)
--- NOTE | 2017-07-23 07:39 | NUR ---
INITIAL JANIS RN NOTE RCVD PT ABLE TO OPEN EYES SPONTANEOUSLY, UNABLE TO FOLLOW COMMANDS. SB W/1ST AVB ON TELE. TOLERATING ORDERED VENT SETTINGS WELL. G-TUBE CLAMPED. PLACEMENT VERIFIED BY AUSCULTATION/ASPIRATION. DERAS TO GRAVITY DRAINING CLOUDY, PURULENT, YELLOW URINE. IV SITES C/D/I/PATENT. NO S/O INFILTRATION/PHLEBITIS OBSERVED UPON FLUSHING. WILL CONTINUE TO MONITOR PT FOR SAFETY AND COMFORT. CALL LIGHT WITHIN REACH. BED IN LOW AND LOCKED POSITION. JACLYN PEREZ COMMUNICATED WITH KATE BOLAÑOS REGARDING CRITICAL RESULTS THIS AM. WILL F/U WITH BLOOD BANK REGARDING PRBC STATUS. PRESSURE DRESSING OBSERVED OVER ABDOMINAL AREA, NO BLEEDING NOTED. WILL CONTINUE TO MONITOR.
--- NOTE | 2017-07-23 07:44 | NUR ---
RN NOTES. CRITICAL LAB CALLED FOR H&H 5.3,. PAGED MIKY NEW ORDER RECEIVED. ORDERED 3UNITS PRBC, AND TRANSFER TO ICU,
[2017-07-23] MEDS ORDERED: CELLULOSE,OXIDIZED 1 EACH EACH MC ONE (08:00)
[2017-07-23] MEDS ORDERED: NOREPINEPHRINE 16 MG in IV D5W 500 ML IV PRN (08:00)
--- NOTE | 2017-07-23 08:31 | NUR ---
HEAD OF MARKETING NOTE PT TRANSFERRED TO ICU AFTER CT ABD/PELVIS DONE. TRANSFER DONE PER PROTOCOL WITH RN AND RT AT BEDSIDE.
[2017-07-23] MEDS ORDERED: FAMOTIDINE/PF INJ 20 MG/2 ML VIAL IV SCH ×2 (09:00)
[2017-07-23 09:04] LABS: EOSINOPHILS % (MANUAL) 2 % (0-4); LYMPHOCYTES % (MANUAL) 7 % (16-48); MONOCYTES % (MANUAL) 4 % (0-11.0); NEUTROPHILS % (MANUAL) 87 (42-76)
--- NOTE | 2017-07-23 09:34 | NUR ---
SCHOOL OPERATIONS MANAGER NOTE SPOKE WITH KATE BOLAÑOS WHO DISCUSSED PT'S CASE WITH DR. WAYNE, ROSANA RECOMMENDS PT TO BE CONSULTED BY SURGERY. PER KATE BOLAÑOS. DR. GERBER CONTACTED TO CONSULT ON PT.
[2017-07-23] MEDS ORDERED: FUROSEMIDE 40 MG/4 ML VIAL IV ONE (10:30)
--- NOTE | 2017-07-23 10:30 | NUR ---
RT PATIENT REC'D TRANSFERRED FROM [facility] TRACHED ON [facility] VENT WITH SETTINGS SET PER MD DARRON MELENDEZ. TRACH SECURE AND IN PROPER POSITION. VENT ALARMS CHECKED + AUDIBLE. CUFF PRESSURE CHECKED BUILDING OFFICIAL. PATIENTS AIRWAY SUCTIONED WITH SMALL SCANT AMT OF PALE YELLOW SEMITHICK SECRETIONS. B/S DIM BILAT. PATIENT IN CRITICAL CONDITION. NO RESPIRATORY DISTRESS AT THIS TIME. VENT PLUGGED INTO RED OUTLET. AMBU BAG AT [facility]. CONT CURRENT PLAN OF RESP CARE. Addendum: 07/23/17 at 1151 by MADISYN BRENNAN RT Amended: Links added.
--- NOTE | 2017-07-23 11:03 | NUR ---
ICT SUPPORT TECHNICIANS NOTE DR. MEDINA AT BEDSIDE UPDATED ON PT'S CONDITION. LASIX REQUEST MADE SINCE PT WILL RECEIVE 3 UNITS PRBC TODAY. HX OF CHF. WILL CONTINUE TO MONITOR.
--- NOTE | 2017-07-23 11:40 | NUR ---
KIER PLEATER NOTE DR. ZABRINA DAVIS CALLED RECOMMENDED TO REMOVE PRESSURE DRESSING AND PLACE PRESSURE OVER PEG INSERTION SITE WITH GAUZE AND TIGHTEN BUMPER AGAINST PT'S SKIN. NEED TO CALL HIM IF BLEEDING CONTINUES. Addendum: 07/23/17 at 1142 by ALEJANDRO BEAVERS RN ADDENDUM KATE WEBSTER FOR DR. WAYNE SPOKE WITH DR. DAVIS REGARDING THE FINDINGS OF THE CT AB/PELVIS AND HE STILL RECOMMENDS TO PLACE PRESSURE OVER THE PEG INSERTION SITE.
[2017-07-23 12:00] LABS: CREATININE, URINE 64.2 MG/DL (30.0-125.0)
--- NOTE | 2017-07-23 12:00 | NUR ---
SPEECH INSTRUCTOR NOTE PRESSURE DRESSING REMOVED AND DR. DAVIS'S INTRUCTIONS FOLLOWED. LUKE MAGALLON AND KATE WEBSTER FOR FOR DR. WAYNE AT BEDSIDE. NO BLEEDING OBSERVED FROM PEG INSERTION SITE.
--- NOTE | 2017-07-23 12:25 | NUR ---
PATCH SANDER NOTE FIRST UNIT PRBC TRANSFUSED. NO FEVER OR CHANGE IN VITAL SIGNS OBSERVED. WILL CONTINUE TO MONITOR PT.
--- NOTE | 2017-07-23 12:29 | NUR ---
MEDICATION NOTE PER FARZANEH FELIZ SURGICEL 4X4 NOT AVAILABLE. MIKY AUTO BODY REPAIR ESTIMATOR AWARE AND INFORMED THAT NO ACTIVE BLEEDING OBSERVED AT THIS TIME. HE RECOMMENDED TO ORDER SURGICEL SIZE AVAILABLE AND USE PRN. ORDER ENTERED AND ACKNOWLEDGED.
[2017-07-23] MEDS ORDERED: CELLULOSE,OXIDIZED 1 PKT EACH MC PRN (12:30)
[2017-07-23] MEDS: VANCOMYCIN 1 GM in IV D5W 250 ML IV SCH (12:59)
[2017-07-23] MEDS ORDERED: diphenhydrAMINE HCL 50 MG/ML VIAL IV PRN (13:30)
[2017-07-23] MEDS ORDERED: Z GUARD REMEDY 2 OZ OINT TP PRN (14:00)
[2017-07-23] MEDS: Z GUARD REMEDY 2 OZ OINT TP SCH (14:57)
--- NOTE | 2017-07-23 16:45 | NUR ---
CHEMIST HELPER NOTE PT TOLERATED SECOND UNIT OF PRBCs. VITAL SIGNS REMAIN STABLE. NO S/O REACTION OBSERVED.
[2017-07-23] MEDS: PANTOPRAZOLE 40 MG VIAL IV SCH (17:05)
[2017-07-23] MEDS: SUCRALFATE 1 G/10 ML UDC GT SCH ×2 (17:05→20:18)
[2017-07-23] MEDS: LACTOBACILLUS RHAMNOSUS GG 1 EACH CAP.SPRINK PO SCH (17:06)
[2017-07-23 18:09] LABS: BASOPHILS % (AUTO) 0.2 % (0.0-2.0); EOSINOPHILS # (AUTO) 0.3 /CMM (0.0-0.7); EOSINOPHILS % (AUTO) 2.6 % (0.0-6.0); LYMPHOCYTES # (AUTO) 0.7 /CMM (0.8-4.8); MEAN CORPUSCULAR HEMOGLOBIN 26 PG (26.0-33.0); MEAN CORPUSCULAR HGB CONC 33 g/dl (31.0-36.0); MEAN CORPUSCULAR VOLUME 80 fL (80-96); MONOCYTES # (AUTO) 0.6 /CMM (0.1-1.30); MONOCYTES % (AUTO) 4.9 % (2.0-12.0); NEUTROPHILS % (AUTO) 86.3 % (43.0-81.0); PLATELET COUNT (AUTO) 145 /CMM (150-450); RDW COEFFICIENT OF VARIATION 17.2 (11.5-15.0); RED BLOOD CELL COUNT(AUTO) 2.37 MIL/uL (4.5-6.0); WHITE BLOOD COUNT (AUTO) 11.6 K/uL (4.3-11.0)
--- NOTE | 2017-07-23 18:24 | NUR ---
APPLICATION DEVELOPMENT LIAISON NOTE PT REMAINS STABLE SHOWING NO S/O DISTRESS/PAIN AT THIS TIME. SB W/ 1ST AVB ON TELE. G-TUBE CLAMPED. PT NPO EXCEPT MEDS. DERAS TO GRAVITY WITH FOUL SMELLING URINE AND LOW UOP. MIKY, PART TIME RECEPTIONIST AWARE. IV SITES REMAIN C/D/I/PATENT. NO S/O INFILTRATION/PHLEBITIS OBSERVED UPON FLUSHING. CALL LIGHT WITHIN REACH. BED IN LOW AND LOCKED POSITION. CONSENT FOR PEG AND EGD IN CHART. TWO UNITS OF PRBC's TRANSFUSED WITHOUT ANY ADVERSE REACTION OBSERVED.
[2017-07-23 18:28] LABS: HEMATOCRIT 19 % (39-51); HEMOGLOBIN 6.2 g/dL (13.5-17.5)
--- NOTE | 2017-07-23 18:34 | NUR ---
WIRE WEB WORKER NOTE DR. HARPER IN UNIT UPDATED ON PT'S CONDITION. SHE'S RECOMMENDED TO ADD ONE MORE UNIT PRBC AND 2 FFP. ORDERS ENTERED AND ACKNOWLEDGED.
--- NOTE | 2017-07-23 19:20 | NUR ---
GLASS DECORATOR NOTE DR. DAVIS IN UNIT ASSESSING PT UPDATED ON PT'S CONDITION AND TRENDING OF HGB DURING SHIFT DESPITE PRBCs GIVEN. DR. HARPER ALSO RECOMMENDED TO TRANSFUSE FFP BEFORE THE 2 UNITS IF PRBCs. PT'S CARE ENDORSED TO SHINGLE WEAVER RN.
[2017-07-23 19:30] LABS: BAND % (MANUAL) 9 % (0.0-5.0); EOSINOPHILS % (MANUAL) 3 % (0-4); LYMPHOCYTES % (MANUAL) 8 % (16-48); MONOCYTES % (MANUAL) 5 % (0-11.0); NEUTROPHILS % (MANUAL) 75 (42-76)
--- NOTE | 2017-07-23 20:00 | NUR ---
CUSTOMER LIAISON - NOTES - RECEIVED PT ABLE TO OPEN EYES SPONTANEOUSLY, UNABLE TO FOLLOW COMMANDS. SB/SR HR 60 W/1ST AVB ON TELE. TOLERATING ORDERED VENT SETTINGS WELL. G-TUBE CLAMPED. DERAS TO GRAVITY DRAINING CLOUDY, PURULENT, YELLOW URINE. CHRISTI MIDLINE, R HAND 20G, R FA 20G, IV SITES C/D/I/PATENT. NO S/O INFILTRATION/PHLEBITIS OBSERVED UPON FLUSHING. WILL CONTINUE TO MONITOR PT FOR SAFETY AND COMFORT. CALL LIGHT WITHIN REACH. BED IN LOW AND LOCKED POSITION.
--- NOTE | 2017-07-23 20:07 | NUR ---
PT RECEIVED TRACHED ON VENT. PTX 8 ON AC MODE. NO RESP DISTRESS NOTED. PT TOLERATING VENT SETTINGS. SX'D FOR SML AMT OF THICK YELLOW SECRETIONS. B/S CLR DM BILAT. TRACH CUFF EQUIPMENT CLEANER AND TESTER. VENT ALARMS SET AND AUDIBLE. AMBU BAG AT [facility]. VENT PLUGGED INTO RED OUTLET. WILL CONTINUE TO MONITOR. Addendum: 07/23/17 at 2010 by LESTER ABAD RT Amended: Links added.
[2017-07-24] VITALS (67 sets, daily range): BP systolic 90–146; BP diastolic 44–73
--- NOTE | 2017-07-24 | NUR ---
RN INITIAL NOTE PT RECEIVED IN BED TRACH VENT DEPENDENT TOLERATING VENT SETTINGS WELL. NO DISTRESS OR DISCOMFORT NOTED. NO S/S OF PAIN NOTED. G-TUBE CLAMPED. PATIENT REMAIN NPO. DERAS TO GRAVITY DRAINING CLOUDY, YELLOW URINE. CHRISTI MIDLINE, R HAND 20G, L HAND 20G, IV SITES C/D/I/PATENT. NO S/O INFILTRATION OBSERVED UPON FLUSHING. RN WILL CONTINUE TO MONITOR PT FOR SAFETY AND COMFORT. CALL LIGHT WITHIN REACH. BED IN LOW AND LOCKED POSITION. KEPT HIM DRY AND CLEAN. REPOSITION HIM Q2H. CONTINUE TO MONITOR HIM. Addendum: 07/25/17 at 0216 by JESSICA DE RN WRONG DATE ENTERED. IT SHOULD BE 07/25/17
--- NOTE | 2017-07-24 00:08 | NUR ---
2nd unit of FFP actual start time 2335 07/23, computer malfunctioned and did not document start time at 2335
--- NOTE | 2017-07-24 03:16 | NUR ---
1ST UNIT OF PRBC COMPLETED, NO S/S OF TRANSFUSION REACTION VSS. NO S/S OF FLUID OVERLOAD, WILL CONTINUE TO MONITOR
[2017-07-24 04:25] LABS: BASOPHILS % (AUTO) 0.2 % (0.0-2.0); EOSINOPHILS # (AUTO) 0.1 /CMM (0.0-0.7); LYMPHOCYTES # (AUTO) 0.5 /CMM (0.8-4.8); LYMPHOCYTES % (AUTO) 4.1 % (20.0-44.0); MEAN CORPUSCULAR HEMOGLOBIN 27 PG (26.0-33.0); MEAN CORPUSCULAR HGB CONC 33 g/dl (31.0-36.0); MEAN CORPUSCULAR VOLUME 82 fL (80-96); MONOCYTES # (AUTO) 0.5 /CMM (0.1-1.30); MONOCYTES % (AUTO) 3.8 % (2.0-12.0); NEUTROPHILS # (AUTO) 10.9 /CMM (1.8-8.9); NEUTROPHILS % (AUTO) 90.9 % (43.0-81.0); PLATELET COUNT (AUTO) 139 /CMM (150-450); RDW COEFFICIENT OF VARIATION 17.8 (11.5-15.0); RED BLOOD CELL COUNT(AUTO) 2.45 MIL/uL (4.5-6.0)
[2017-07-24 04:35] LABS: HEMATOCRIT 20 % (39-51)
[2017-07-24 04:36] LABS: HEMOGLOBIN 6.6 g/dL (13.5-17.5)
[2017-07-24 04:43] LABS: CALCIUM, SERUM 8.4 mg/dL (8.5-10.1); POTASSIUM 4.9 mmol/L (3.5-5.1)
[2017-07-24 04:53] LABS: THYROID STIMULATING HORMONE 3.407 uIU/mL (0.358-3.74); URIC ACID 6.2 mg/dL (2.6-7.2)
[2017-07-24 05:10] LABS: FERRITIN 231 ng/mL (8-388); IRON, SERUM 44 ug/dl (50-175)
[2017-07-24 05:15] LABS: EOSINOPHILS % (MANUAL) 1 % (0-4); LYMPHOCYTES % (MANUAL) 5 % (16-48); MONOCYTES % (MANUAL) 3 % (0-11.0); NEUTROPHILS % (MANUAL) 91 (42-76)
[2017-07-24] MEDS: PIPERACILLIN /TAZOBACTAM 2.25 G in IV D5W 50 ML IV SCH (05:16)
--- NOTE | 2017-07-24 06:09 | NUR ---
KATE ALVARES NOTIFIED OF CRITICAL LAB VALUES HGB AND SERUM OSMOLARITY, ORDERS RECEIVED, RECHECK H/H AFTER LAST UNIT OF BLOOD
[2017-07-24 06:39] LABS: D-DIMER 2.43 mg/L(FEU (0.17-0.50); INR 1.24 (0.87-1.13); PROTHROMBIN TIME 12.8 SECS (9.5-12.7)
[2017-07-24] MEDS ORDERED: HYDROGEL DRESSING 90 GM TUBE TP PRN (07:00)
[2017-07-24 07:50] LABS: BASOPHILS % (AUTO) 0.2 % (0.0-2.0); EOSINOPHILS # (AUTO) 0.1 /CMM (0.0-0.7); EOSINOPHILS % (AUTO) 1.2 % (0.0-6.0); HEMATOCRIT 24 % (39-51); HEMOGLOBIN 7.9 g/dL (13.5-17.5); LYMPHOCYTES # (AUTO) 0.7 /CMM (0.8-4.8); LYMPHOCYTES % (AUTO) 5.9 % (20.0-44.0); MEAN CORPUSCULAR HEMOGLOBIN 27 PG (26.0-33.0); MEAN CORPUSCULAR HGB CONC 33 g/dl (31.0-36.0); MEAN CORPUSCULAR VOLUME 82 fL (80-96); MONOCYTES # (AUTO) 0.5 /CMM (0.1-1.30); MONOCYTES % (AUTO) 4.3 % (2.0-12.0); NEUTROPHILS # (AUTO) 11.1 /CMM (1.8-8.9); NEUTROPHILS % (AUTO) 88.4 % (43.0-81.0); PLATELET COUNT (AUTO) 141 /CMM (150-450); RDW COEFFICIENT OF VARIATION 16.9 (11.5-15.0); RED BLOOD CELL COUNT(AUTO) 2.91 MIL/uL (4.5-6.0); WHITE BLOOD COUNT (AUTO) 12.5 K/uL (4.3-11.0)
--- NOTE | 2017-07-24 07:51 | NUR ---
WOUND CARE CONSULT: PT FOLLOWED BY SURGICAL TEAM. DEFER TO SURGICAL TEAM FOR WOUND TREATMENT PLAN. ALL SKIN PROTECTION MEASURES IN PLACE AND DISCUSSED WITH NURSING STAFF. PT ON FIRST STEP MATTRESS. WILL SEE PRClemnecia HARRY IN AGREEMENT WITH PLAN OF CARE.
--- NOTE | 2017-07-24 08:00 | NUR ---
RN INITIAL NOTE PT RECIEVED IN BED TRACH VENT DEPENDENT TOLERATING ORDERED VENT SETTINGS WELL. G-TUBE CLAMPED.PATIENT NPO DUE TO PLANNED EGD AT 0900AM WITH AUGUSTA VYAS TO GRAVITY DRAINING CLOUDY, PURULENT, YELLOW URINE. CHRISTI MIDLINE, R HAND 20G, R FA 20G, IV SITES C/D/I/PATENT. NO S/O INFILTRATION/PHLEBITIS OBSERVED UPON FLUSHING. RN WILL CONTINUE TO MONITOR PT FOR SAFETY AND COMFORT. CALL LIGHT WITHIN REACH. BED IN LOW AND LOCKED POSITION. RN WILL CONTINUE TO MONITOR THROUGHOUT THE DAY
[2017-07-24] MEDS: PANTOPRAZOLE 40 MG VIAL IV SCH ×2 (08:24→16:02)
[2017-07-24] MEDS: Z GUARD REMEDY 2 OZ OINT TP SCH (08:25)
[2017-07-24] MEDS: LACTOBACILLUS RHAMNOSUS GG 1 EACH CAP.SPRINK PO SCH ×2 (08:25→15:48)
[2017-07-24] MEDS: SUCRALFATE 1 G/10 ML UDC GT SCH ×4 (08:25→21:01)
[2017-07-24] MEDS: HYDROGEL DRESSING 90 GM TUBE TP SCH (08:29)
--- NOTE | 2017-07-24 10:20 | NUR ---
UNSCHEDULED TRACH CHANGE DONE PER DR. GUTIERREZ DUE TO BUSTED TRACH CUFF. BREATH SOUNDS BILATERAL COURSE RHONCHI AND SYMMETRICAL THORACIC EXPANSION POST TRACH CHANGED. SPO2 100% [place] 567ML Addendum: 07/24/17 at 1024 by FARRUKH BRANCH RT Amended: Links added.
[2017-07-24] MEDS: VANCOMYCIN 1 GM in IV D5W 250 ML IV SCH (11:33)
[2017-07-24] MEDS: MEROPENEM 500 MG in IV NS 0.9% 50 ML IV SCH ×2 (13:05→22:21)
--- NOTE | 2017-07-24 18:41 | NUR ---
RN CLOSING NOTE PATIENT IN BED , TRACH VENT DEPENDENT UNABLE TO MAKE NEEDS KNOWN HOWEVER ALL NEEDS ATTENDED PATIENT TOLERATING VENT SETTINGS WELL WITHOUT ISSUES PATIENT HAS NO SIGNS OF ACTIVE BLEEDING NOTED EGD SCHEDULED FOR 6PM 07/24/17 PATIENT ALSO CLEARED TO BE MOVED TO TELE, CHARGE NURSE AWARE PATIENT IN BED TURNED AND REPOSITION AND SIDE RAILS LOCKED BED IN LOWEST POSITION. RN WILL ENDORSE FURTHER CARE TO PM RN
[2017-07-25] VITALS (19 sets, daily range): BP systolic 116–154; BP diastolic 38–61
--- NOTE | 2017-07-25 | NUR ---
RN INITIAL NOTE PT RECEIVED IN BED TRACH VENT DEPENDENT TOLERATING VENT SETTINGS WELL. NO DISTRESS OR DISCOMFORT NOTED. NO S/S OF PAIN NOTED. G-TUBE CLAMPED. PATIENT REMAIN NPO. DERAS TO GRAVITY DRAINING CLOUDY, YELLOW URINE. CHRISTI MIDLINE, R HAND 20G, L HAND 20G, IV SITES C/D/I/PATENT. NO S/O INFILTRATION OBSERVED UPON FLUSHING. RN WILL CONTINUE TO MONITOR PT FOR SAFETY AND COMFORT. CALL LIGHT WITHIN REACH. BED IN LOW AND LOCKED POSITION. KEPT HIM DRY AND CLEAN. REPOSITION HIM Q2H. CONTINUE TO MONITOR HIM.
--- NOTE | 2017-07-25 00:05 | NUR ---
RN NOTE ON TELE SR WITH 1ST DEGREE AV BLOCK HR 60.
--- NOTE | 2017-07-25 02:00 | NUR ---
COMMUNICABLE DISEASE SPECIALIST NOTE BED BATH GIVEN. PT HAD SEMI LIQUIDY STOOL BLACK IN COLOR MODERATE AMOUNT. DRESSING ON SACRAL WOUND DONE ORDERED. Z GUARD APPLIED. BED LINENS CHANGED. PT TOLERATED WELL. NO DISTRESS NOTED. CONTINUE TO MONITOR.
[2017-07-25 04:37] LABS: BASOPHILS % (AUTO) 0.1 % (0.0-2.0); EOSINOPHILS # (AUTO) 0.3 /CMM (0.0-0.7); EOSINOPHILS % (AUTO) 2.2 % (0.0-6.0); HEMATOCRIT 23 % (39-51); HEMOGLOBIN 7.7 g/dL (13.5-17.5); LYMPHOCYTES # (AUTO) 0.8 /CMM (0.8-4.8); LYMPHOCYTES % (AUTO) 6.2 % (20.0-44.0); MEAN CORPUSCULAR HEMOGLOBIN 27 PG (26.0-33.0); MEAN CORPUSCULAR HGB CONC 33 g/dl (31.0-36.0); MEAN CORPUSCULAR VOLUME 82 fL (80-96); MONOCYTES # (AUTO) 0.4 /CMM (0.1-1.30); MONOCYTES % (AUTO) 3.6 % (2.0-12.0); NEUTROPHILS # (AUTO) 10.7 /CMM (1.8-8.9); NEUTROPHILS % (AUTO) 87.9 % (43.0-81.0); PLATELET COUNT (AUTO) 160 /CMM (150-450); RDW COEFFICIENT OF VARIATION 17.2 (11.5-15.0); RED BLOOD CELL COUNT(AUTO) 2.85 MIL/uL (4.5-6.0); WHITE BLOOD COUNT (AUTO) 12.1 K/uL (4.3-11.0)
[2017-07-25 05:08] LABS: CALCIUM, SERUM 8.5 mg/dL (8.5-10.1); CREATININE 3.3 mg/dL (0.6-1.3); MAGNESIUM 2.8 mg/dL (1.8-2.4); PHOSPHORUS 5.4 mg/dL (2.5-4.9); POTASSIUM 4.4 mmol/L (3.5-5.1)
--- NOTE | 2017-07-25 06:00 | NUR ---
BUSINESS DIVISION CHAIR NOTE PER DR NAJERA PT IS OK TO TRANSFER TO TELE 1. WILL FOLLOW UP.
--- NOTE | 2017-07-25 06:25 | NUR ---
ENVIRONMENTAL FIELD PROFESSIONAL NOTE PT TRANSFERED TO [facility] ROOM 109 PER ACLS PROTOCOL PT IN STABLE CONDITION. REPORT GIVEN NURSE TORRES FOR CONTINUE TO CARE.
[2017-07-25] MEDS: IV NS 0.9% 100 ML BAG IV PRN ×2 (07:47→23:40)
--- NOTE | 2017-07-25 08:06 | NUR ---
RN INITIAL NOTE PT RECEIVED IN BED TRACH VENT DEPENDENT TOLERATING ORDERED VENT SETTINGS WELL. G-TUBE CLAMPED.PATIENT NPO DUE TO UNSUCCESSFUL EGD PER PM RN , DERAS TO GRAVITY DRAINING CLOUDY, PURULENT, YELLOW URINE. CHRISTI MIDLINE, R HAND 20G, R FA 20G, IV SITES C/D/I/PATENT. NO S/O INFILTRATION/PHLEBITIS OBSERVED UPON FLUSHING. RN WILL CONTINUE TO MONITOR PT FOR SAFETY AND COMFORT. CALL LIGHT WITHIN REACH. BED IN LOW AND LOCKED POSITION. RN WILL CONTINUE TO MONITOR THROUGHOUT THE DAY
[2017-07-25] MEDS: LACTOBACILLUS RHAMNOSUS GG 1 EACH CAP.SPRINK PO SCH ×2 (08:17→16:30)
[2017-07-25] MEDS: SUCRALFATE 1 G/10 ML UDC GT SCH ×4 (08:17→20:11)
[2017-07-25 08:18] LABS: IMMUNOGLOBULIN A, SERUM 301 mg/dL (61-437); IMMUNOGLOBULIN G, SERUM 1602 mg/dL (700-1600); IMMUNOGLOBULIN M, SERUM 51 mg/dL (20-172)
[2017-07-25] MEDS: PANTOPRAZOLE 40 MG VIAL IV SCH ×2 (09:39→16:28)
[2017-07-25] MEDS: Z GUARD REMEDY 2 OZ OINT TP SCH (09:40)
[2017-07-25] MEDS: HYDROGEL DRESSING 90 GM TUBE TP SCH ×2 (09:43)
[2017-07-25] MEDS: CADEXOMER IODINE 40 GM TUBE TP SCH (09:43)
--- NOTE | 2017-07-25 09:46 | NUR ---
RN NOTE SCANNER CONNECTED TO COMPUTER ON WHEELS NOT WORKING AT THIS TIME RN NOTIFIED CHARGE NURSE AND ENGINEERING CONTACTED, RN WILL CONTINUE TO FOLLOW .
[2017-07-25] MEDS: MEROPENEM 500 MG in IV NS 0.9% 50 ML IV SCH ×2 (11:53→23:29)
--- NOTE | 2017-07-25 12:37 | NUR ---
RN NOTE PATIENT IN BED , RN AWAITING RETURN CALL FROM RT IN REGARD TO THE TRACH , AND ALSO IN REGARDS TO THE CUFF DEFLATING , RT STATES SHE WILL SPEAK WITH MD GUTIERREZ IN REGARDS TO POSSIBLY CHANGING THE TRACH TO A LARGER SIZE OR A XL. RN ALSO AWAITING VANCOMYCIN TROUGH , IN ORDER TO HANG THE VANCOMYCIN FOR 12PM
--- NOTE | 2017-07-25 12:58 | NUR ---
RT CREWS NOTIFIED DR. MAGANA COMING TODAY TO CHANGE TRACH AND INSTRUCTED TO HAVE SIZE 8 AND 10 DISTAL EXTRA LONG TRACH AT BEDSIDE.
--- NOTE | 2017-07-25 13:33 | NUR ---
DR. GUTIERREZ NOTIFIED SIZE 8 DISTAL XLT IS ONLY THE AVAILABLE SIZE,RT AWARE.
[2017-07-25] MEDS: VANCOMYCIN 1 GM in IV D5W 250 ML IV SCH (13:47)
[2017-07-25 14:17] LABS: *SPE A/G RATIO 0.8 (0.7-1.7); *SPE ALBUMIN 2.4 g/dL (2.9-4.4); *SPE ALPHA-1-GLOBULIN 0.4 g/dL (0.0-0.4); *SPE ALPHA-2-GLOBULIN 0.4 g/dL (0.4-1.0); *SPE BETA GLOBULIN 0.7 g/dL (0.7-1.3); *SPE GLOBULIN, TOTAL 3.1 g/dL (2.2-3.9); *SPE M-SPIKE Not Observed g/dL (Not Observed); *SPEGAMMA GLOBULIN 1.6 g/dL (0.4-1.8)
--- NOTE | 2017-07-25 15:51 | NUR ---
RN NOTE VANCOMYCIN HELD DUE TO VAN TROUGH AT 21 WILL ENDORSE TO PM SHIFT FOR CONTINUE MONITORING
--- NOTE | 2017-07-25 18:10 | NUR ---
RT NOTE: PATIENT RECEIVED WITH #[address] ON ESPRIT VENT[address] DR. GUTIERREZ NOTIFIED THAT PATIENT'S TRACH HAS A BIG LEAK WITH THE CUFF FULLY INFLATED. STATES THAT ENT() WILL CHANGE TRACH. A SHILEY #8 XL DISTAL TRACH IS AT BED SIDE. WILL ENDORSE TO INCOMING SHIFT. VENT ALARMS SET AND AUDIBLE. SUCTIONED MODERATE-LARGE AMOUNT OF THIN FROTHY SECRETIONS. VENT PLUGGED INTO RED OUTLET. AMBU BAG AT [facility].
--- NOTE | 2017-07-25 18:27 | NUR ---
RN CLOSING NOTE PATIENT STABLE THROUGHOUT THE DAY PATIENT LABS MONITORED PATIENT G-TUBE CLAMPED PATIENT NPO AT THIS TIME , NO BLEEDING OBSERVED TODAY PATIENT HAS GENERALIZED EDEMA NOTED PATIENT STILL NPO , PATIENT TURNED Q2HRS PATIENT NEEDS ASSESS AND COMPLETED PATIENT UNABLE TO MAKE NEEDS KNOWN AT THIS TIME
--- NOTE | 2017-07-25 18:37 | NUR ---
RN NOTE SABRINA STEVEN STATES IT IS OKAY TO GIVE MEDICATIONS VIA G-TUBE , RN WILL ENDORSE CARE TO PM RN
--- NOTE | 2017-07-25 19:15 | NUR ---
RN OPENING NOTES: RECEIVED PATIENT ON BED OBTUNDED TRACHED TO MECH VENT, TOLERATED WELL, NOT IN RESPIRATORY DISTRESS. SINUS JUANPABLO WITH 1ST DEGREE AVB HR AT 50'S-60'S. IV ACCESS ON CHRISTI AND BOTH PERIPHERAL HAND IV ACCESS INTACT AND PATENT. NS TKO. GT INTACT, CLAMPED WITHOUT NOTED ACTIVE BLEEDING AROUND SITE NOR ASPIRATED BLOODY GASTRIC CONTENTS. FC INTACT DRAINING TO A CLOSED SYSTEM. UO MONITORED. WITH NOTED GENERALIZED EDEMA; AND WITH MULTIPLE WOUNDS. SAFETY MEASURES ENSURED. CONTINUOUSLY MONITORED.
[2017-07-25] MEDS ORDERED: VANCOMYCIN 0.75 GM in IV D5W 250 ML IV SCH (21:00)
[2017-07-26] VITALS: BP 123/43
--- NOTE | 2017-07-26 | NUR ---
MIDSHIFT NOTES: SKIN CARE AND WOUND TREATMENT RENDERED. SAFETY MEASURES ENSURED. TRACH CHANGE NOT DONE, DR MOTT NOT IN. CONTINUOUSLY MONITORED PATIENT.
[2017-07-26 04:00] VITALS: BP 104/44
[2017-07-26 06:54] LABS: BASOPHILS % (AUTO) 0.3 % (0.0-2.0); EOSINOPHILS # (AUTO) 0.2 /CMM (0.0-0.7); HEMATOCRIT 23 % (39-51); HEMOGLOBIN 7.6 g/dL (13.5-17.5); LYMPHOCYTES # (AUTO) 0.8 /CMM (0.8-4.8); LYMPHOCYTES % (AUTO) 10.3 % (20.0-44.0); MEAN CORPUSCULAR HEMOGLOBIN 28 PG (26.0-33.0); MEAN CORPUSCULAR HGB CONC 33 g/dl (31.0-36.0); MEAN CORPUSCULAR VOLUME 84 fL (80-96); MONOCYTES # (AUTO) 0.3 /CMM (0.1-1.30); MONOCYTES % (AUTO) 4.5 % (2.0-12.0); NEUTROPHILS # (AUTO) 6.3 /CMM (1.8-8.9); NEUTROPHILS % (AUTO) 82.9 % (43.0-81.0); PLATELET COUNT (AUTO) 160 /CMM (150-450); RDW COEFFICIENT OF VARIATION 17.6 (11.5-15.0); RED BLOOD CELL COUNT(AUTO) 2.77 MIL/uL (4.5-6.0); WHITE BLOOD COUNT (AUTO) 7.7 K/uL (4.3-11.0)
--- NOTE | 2017-07-26 06:58 | NUR ---
RN CLOSING NOTES: PATIENT REMAINED IN BED NOT IN APPARENT DISTRESS. REMAINED SB ON MONITOR. TRACH KEPT TO [facility] VENT. AM LABS DRAWN, PENDING RESULTS. SKIN CARE AND TRACH CARE RENDERED. UO MONITORED AND RECORDED. SAFETY MEASURES ENSURED. CONTINUOUSLY MONITORED. ENDORSED TO AM SHIFT RN.
[2017-07-26 07:22] LABS: CALCIUM, SERUM 8.8 mg/dL (8.5-10.1); CREATININE 3.8 mg/dL (0.6-1.3); MAGNESIUM 3.2 mg/dL (1.8-2.4); PHOSPHORUS 6.2 mg/dL (2.5-4.9); POTASSIUM 4.5 mmol/L (3.5-5.1)
--- NOTE | 2017-07-26 07:30 | NUR ---
FOREMAN SHIPPING DEPARTMENT AM NOTES: RECEIVED PATIENT IN BED, OBTUNDED PORTEX [facility], SETTING ORDERED, TOLERATING WELL, NOT IN RESPIRATORY DISTRESS. SINUS JUANPABLO WITH 1ST DEGREE AVB HR 59. NO SIGNS OF PAIN, IV ACCESS ON CHRISTI WITH NS AT TKO AND BOTH PERIPHERAL HAND IV FLUSHES WELL, ALL SITES CLEAR, GT INTACT, CLAMPED WITHOUT NOTED ACTIVE BLEEDING AROUND SITE OR ASPIRATED BLOODY GASTRIC CONTENTS. O RESIDUAL, FC INTACT DRAINING TO A CLOSED SYSTEM. UO MONITORED. WITH NOTED GENERALIZED EDEMA; AND WITH MULTIPLE WOUNDS SEE NURSING FLOWSHEET, WILL TURN AND REPOSITION [id number], WILL PERFORM PRESCRIBED WOUND TREATMENT IN A WHILE. SAFETY MEASURES IN PLACE. WILL CONTINUE TO MONITOR.
[2017-07-26 08:00] VITALS: BP 140/52
[2017-07-26] MEDS: HYDROGEL DRESSING 90 GM TUBE TP SCH ×2 (09:06→09:11)
[2017-07-26] MEDS: FERROUS SULFATE UDC 300 MG/5 ML UDC NG SCH (09:06)
[2017-07-26] MEDS: LACTOBACILLUS RHAMNOSUS GG 1 EACH CAP.SPRINK PO SCH ×2 (09:06→16:44)
[2017-07-26] MEDS: SUCRALFATE 1 G/10 ML UDC GT SCH ×4 (09:06→20:54)
[2017-07-26] MEDS: Z GUARD REMEDY 2 OZ OINT TP SCH (09:06)
[2017-07-26] MEDS: PANTOPRAZOLE 40 MG VIAL IV SCH ×2 (09:06→16:44)
[2017-07-26] MEDS: CADEXOMER IODINE 40 GM TUBE TP SCH ×2 (09:08→09:11)
--- NOTE | 2017-07-26 09:30 | NUR ---
ANIMAL NUTRITIONIST NOTES DUE MEDS GIVEN.
[2017-07-26] MEDS: MEROPENEM 500 MG in IV NS 0.9% 50 ML IV SCH ×2 (11:23→23:16)
--- NOTE | 2017-07-26 11:23 | NUR ---
MESSAGE CLERK NOTES STARTED JERONIMO MOTA.
[2017-07-26] MEDS ORDERED: IV NS 0.9% 500 ML BAG IV ONE (11:30)
[2017-07-26 12:00] VITALS: BP 137/47
--- NOTE | 2017-07-26 13:10 | NUR ---
RN NOTES PLACED A CALL TO DR. MAGANA'S OFFICE, SPOKE WITH NATACHA, RELAYED MESSAGE RE TRACHE CONSULT PER DR. GUTIERREZ. DR. MAGANA SEEING PT AT THE MOMENT AND WILL CALL BACK. PT'S NAME, AND ROOM NUMBER LEFT WITH NATACHA.
--- NOTE | 2017-07-26 14:00 | NUR ---
TUBE DEPATCHER NOTES TV INCREASED BY [address] BY R[address]T. PER DR GUTIERREZ UNTIL TRACH IS CHANGED AND THEN RESUME PREVIOUS TV. PM CARE DONE. PERFORMED PRESCRIBED WOUND TREATMENT.
--- NOTE | 2017-07-26 15:35 | NUR ---
RN NOTES 2ND CALL TO DR. AMGANA'S OFFICE, SPOKE WITH MARS STAFF, PER HER, RECEIVED OUR MESSAGE BUT HAS NO REPLY YET.
[2017-07-26 16:00] VITALS: BP 115/38
--- NOTE | 2017-07-26 18:36 | NUR ---
ASSOCIATE CHEMIST CLOSING NOTES: PATIENT MADE COMFORTABLE, OBTUNDED PORTEX 8 TRACHE TO MECH VENT, SETTING ORDERED, TOLERATING WELL, NOT IN RESPIRATORY DISTRESS. SINUS JUANPABLO WITH 1ST DEGREE AVB HR 65, NO SIGNS OF PAIN, IV ACCESS ON CHRISTI WITH NS AT TKO AND BOTH PERIPHERAL HAND IV FLUSHES WELL, ALL SITES CLEAR, GT INTACT, CLAMPED WITHOUT NOTED ACTIVE BLEEDING AROUND SITE OR ASPIRATED BLOODY GASTRIC CONTENTS. O RESIDUAL, FC INTACT DRAINING TO A CLOSED SYSTEM. UO MONITORED. WITH 190 ML OUTPUT, WITH NOTED GENERALIZED EDEMA; AND WITH MULTIPLE WOUNDS.TURNRN AND REPOSITIONED [id number], NO OTHER SIGNIFICANT CHANGE IN CONDITION. ALL NEEDS MET. SAFETY MEASURES IN PLACE. WILL ENDORSE TO NEXT SHIFT FOR ROSALIA.
[2017-07-26 20:00] VITALS: BP 127/41
--- NOTE | 2017-07-26 20:00 | NUR ---
television installer helper notes received pts in bed remains on vent ac settings well tolerated . hob elevated for aspiration precaution , suction secretion done and prn , pts is obtunded , v/s stable afebrile , with elsie midline intact and patent .f/c intact draining with yellowish urine output, gt remains clamp pts npo except meds . all needs attended too ,call light within reach kept pts clean dry and comfortable will continue to monitor pts.on contact isolation esbl urine .precautionary measures observed at all times.
--- NOTE | 2017-07-26 21:00 | NUR ---
telemarketing representative notes pts on tele sr on the monitor , no sob no distress no c/o pain noted .
[2017-07-27] VITALS: BP 128/43
[2017-07-27 04:00] VITALS: BP 139/59
--- NOTE | 2017-07-27 06:37 | NUR ---
PUMP RUNNER NOTES PTS REMAINS ON VENTILATOR , V/S STABLE AFEBRILE , WILL ENDORSE TO RN DAY SHIFT FOR CONTINUITY OF CARE.
--- NOTE | 2017-07-27 07:30 | NUR ---
GRAIN CLEANER AND TRANSFER OPERATOR AM NOTES: RECEIVED PATIENT IN BED, [facility], SETTING ORDERED, TOLERATING WELL, NOT IN RESPIRATORY DISTRESS. SINUS JUANPABLO HR 57. NO SIGNS OF PAIN, IV ACCESS ON CHRISTI WITH NS AT TKO AND BOTH PERIPHERAL HAND IV FLUSHES WELL, ALL SITES CLEAR, GT INTACT, CLAMPED WITHOUT NOTED ACTIVE BLEEDING AROUND SITE OR ASPIRATED BLOODY GASTRIC CONTENTS. O RESIDUAL, FC INTACT DRAINING TO A CLOSED SYSTEM. UO MONITORED. WITH NOTED GENERALIZED EDEMA; AND WITH MULTIPLE WOUNDS SEE NURSING FLOWSHEET, WILL TURN AND REPOSITION [id number], WILL PERFORM PRESCRIBED WOUND TREATMENT IN A WHILE. SAFETY MEASURES IN PLACE. WILL CONTINUE TO MONITOR.
[2017-07-27 08:00] VITALS: BP 131/46
[2017-07-27 08:18] LABS: BASOPHILS % (AUTO) 0.2 % (0.0-2.0); EOSINOPHILS # (AUTO) 0.2 /CMM (0.0-0.7); EOSINOPHILS % (AUTO) 3.2 % (0.0-6.0); HEMATOCRIT 25 % (39-51); HEMOGLOBIN 8.3 g/dL (13.5-17.5); LYMPHOCYTES % (AUTO) 13.3 % (20.0-44.0); MEAN CORPUSCULAR HEMOGLOBIN 28 PG (26.0-33.0); MEAN CORPUSCULAR HGB CONC 33 g/dl (31.0-36.0); MEAN CORPUSCULAR VOLUME 84 fL (80-96); MONOCYTES # (AUTO) 0.3 /CMM (0.1-1.30); MONOCYTES % (AUTO) 3.9 % (2.0-12.0); NEUTROPHILS # (AUTO) 5.9 /CMM (1.8-8.9); NEUTROPHILS % (AUTO) 79.4 % (43.0-81.0); PLATELET COUNT (AUTO) 176 /CMM (150-450); RDW COEFFICIENT OF VARIATION 17.6 (11.5-15.0); WHITE BLOOD COUNT (AUTO) 7.4 K/uL (4.3-11.0)
[2017-07-27] MEDS: HYDROGEL DRESSING 90 GM TUBE TP SCH ×2 (08:32→08:33)
[2017-07-27] MEDS: LACTOBACILLUS RHAMNOSUS GG 1 EACH CAP.SPRINK PO SCH ×2 (08:32→16:23)
[2017-07-27] MEDS: PANTOPRAZOLE 40 MG VIAL IV SCH ×2 (08:32→16:23)
[2017-07-27] MEDS: FERROUS SULFATE UDC 300 MG/5 ML UDC NG SCH (08:32)
[2017-07-27] MEDS: SUCRALFATE 1 G/10 ML UDC GT SCH ×4 (08:32→21:08)
[2017-07-27] MEDS: Z GUARD REMEDY 2 OZ OINT TP SCH (08:33)
[2017-07-27] MEDS: CADEXOMER IODINE 40 GM TUBE TP SCH ×2 (08:36→08:37)
[2017-07-27 08:43] LABS: CALCIUM, SERUM 8.7 mg/dL (8.5-10.1); CREATININE 4.2 mg/dL (0.6-1.3); POTASSIUM 4.2 mmol/L (3.5-5.1)
[2017-07-27] MEDS ORDERED: VANCOMYCIN 0.75 GM in IV D5W 250 ML IV SCH (09:00)
--- NOTE | 2017-07-27 09:30 | NUR ---
POST CLOSER NOTES DUE MEDS GIVEN.
--- NOTE | 2017-07-27 09:45 | NUR ---
DIRECTIONAL BORE OPERATOR NOTES VANCO TROUGH 24. PHARMACY AWARE. VANCO IV NON ADMINISTERED.
[2017-07-27] MEDS: MEROPENEM 500 MG in IV NS 0.9% 50 ML IV SCH ×2 (10:41→22:05)
--- NOTE | 2017-07-27 10:41 | NUR ---
DEMOLITION HAMMER OPERATOR NOTES STARTED JERONIMO MOTA.
--- NOTE | 2017-07-27 11:50 | NUR ---
SUPERVISOR SHIPFITTERS NOTES DR. Nnamdi HAMMER AT BEDSIDE. DR. DOWNS FOR HD CATH PLACEMENT PER HIM. NOTIFIED.
[2017-07-27 12:00] VITALS: BP 141/58
[2017-07-27] MEDS: IV D5/ 0.9% NACL 1,000 ML IV PRN (12:53)
[2017-07-27 16:00] VITALS: BP 138/51
--- NOTE | 2017-07-27 18:17 | NUR ---
AIDS NURSE CLOSING NOTES: PATIENT MADE COMFORTABLE, OBTUNDED PORTEX 8 TRACHE TO MECH VENT, SETTING ORDERED, TOLERATING WELL, NOT IN RESPIRATORY DISTRESS. SINUS JUANPABLO 57, NO SIGNS OF PAIN, IV ACCESS ON CHRISTI WITH D5NS AT 70ML/HR, BOTH PERIPHERAL HAND IV FLUSHES WELL, ALL SITES CLEAR, GT INTACT, CLAMPED WITHOUT NOTED ACTIVE BLEEDING AROUND SITE OR ASPIRATED BLOODY GASTRIC CONTENTS. O RESIDUAL, FC INTACT DRAINING TO A CLOSED SYSTEM. UO MONITORED. WITH 290 ML OUTPUT, WITH NOTED GENERALIZED EDEMA; AND WITH MULTIPLE WOUNDS.TURNED AND REPOSITIONED [id number], PM CARE DONE, PERFORMED PRESCRIBED WOUND TREATMENT. NO OTHER SIGNIFICANT CHANGE IN CONDITION. ALL NEEDS MET. SAFETY MEASURES IN PLACE. WILL ENDORSE TO NEXT SHIFT FOR ROSALIA. STILL AWAITING TRACHE CHANGE AND SURGICAL CONSULT FOR G TUBE ISSUE.
[2017-07-27 20:00] VITALS: BP_SYST 138; BP_DIAS 42; BP_DIAS 51
--- NOTE | 2017-07-27 20:00 | NUR ---
KAITLIN RN NOTES RECEIVED PTS REMAINS ON VENT AC SETTING WELL TOLERATED , HOB ELEVATED AT ALL TIMES FOR ASPIRATION PRECAUTION , SUCTION SECRETION DONE AND PRN , TURN AND REPOSITION Q 2HRS AND PRN .V/S STABLE AFEBRILE, ALL NEEDS ATTENDED TOO CALL LIGHT WITHIN REACH , ALL DUE MEDS GIVEN ORDERED.ON TELE SR-61 ON THE MONITOR, NO SOB NO DISTRESS NOTED NO COMPLAIN OF PAIN AT OF THIS TIME, F/C INTACT AND PATENT DRAINING WITH YELLOWISH URINE OUTPUT. ON CONTACT ISOLATION ESBL URINE , PRECAUTIONARY MEASURE OBSERVED AT ALL TIMES , WITH CHRISTI MIDLINE PATENT INTACT WITH D5NS AT 70CC/HR IN PROGRESS , WILL CONTINUE TO MONITOR.
--- NOTE | 2017-07-27 23:00 | NUR ---
FOUNDATION RELATIONS DIRECTOR NOTES RECEIVED A CALL FROM DR LANDA HE SAID HE WILL COME JAREN AM TO CHANGED THE TRACH AT BEDSIDE. RT MADE AWARE.
[2017-07-28] VITALS: BP 131/32
[2017-07-28 04:00] VITALS: BP 114/39
[2017-07-28] MEDS: IV D5/ 0.9% NACL 1,000 ML IV PRN (05:57)
[2017-07-28] MEDS ORDERED: VANCOMYCIN 500 MG in IV D5W 100 ML IV PRN (06:00)
--- NOTE | 2017-07-28 06:23 | NUR ---
SALES AND SERVICE SPECIALIST NOTES PTS REMAINS ON VENT , TOLERATED WELL, NO SOB NO DISTRESS NOTED , FOR CHANGED OF TRACH TODAY BY DR LANDA AT BEDSIDE. WILL ENDORSE TO RN DAY SHIFT FOR CONTINUITY OF CARE.
[2017-07-28 06:50] LABS: CALCIUM, SERUM 8.2 mg/dL (8.5-10.1); CREATININE 4.4 mg/dL (0.6-1.3); POTASSIUM 3.9 mmol/L (3.5-5.1)
--- NOTE | 2017-07-28 07:30 | NUR ---
CLINICAL RESEARCH DIRECTOR INITIAL NOTES RECEIVED PATIENT IN BED, OBTUNDED PORTEX 8 TRACHTO MECH VENT, SETTING ORDERED, TOLERATING WELL, NOT IN RESPIRATORY DISTRESS. PATIENT SUCTIONED WITH WHITE THICK SECRETIONS NOTED, SR HR 61 ON TELE MONITOR, NO SIGNS OF PAIN, IV ACCESS ON CHRISTI WITH D5NS @ 70 CC/HR, AND BOTH PERIPHERAL HAND IV FLUSHES WELL, ALL SITES CLEAR, GT INTACT, CLAMPED WITHOUT NOTED ACTIVE BLEEDING AROUND SITE OR ASPIRATED BLOODY GASTRIC CONTENTS. NO RESIDUAL, FC INTACT DRAINING, WILL TURN AND REPOSITION [id number], WILL PERFORM PRESCRIBED WOUND TREATMENT IN A WHILE. SAFETY MEASURES IN PLACE. WILL CONTINUE TO MONITOR.
[2017-07-28 08:00] VITALS: BP 138/49
[2017-07-28] MEDS: SUCRALFATE 1 G/10 ML UDC GT SCH ×4 (08:15→22:05)
[2017-07-28] MEDS: FERROUS SULFATE UDC 300 MG/5 ML UDC NG SCH (08:15)
[2017-07-28] MEDS: HYDROGEL DRESSING 90 GM TUBE TP SCH ×2 (08:16)
[2017-07-28] MEDS: LACTOBACILLUS RHAMNOSUS GG 1 EACH CAP.SPRINK PO SCH ×2 (08:16→16:51)
[2017-07-28] MEDS: CADEXOMER IODINE 40 GM TUBE TP SCH ×2 (08:16→08:18)
[2017-07-28] MEDS: PANTOPRAZOLE 40 MG VIAL IV SCH ×2 (08:16→16:51)
[2017-07-28] MEDS: Z GUARD REMEDY 2 OZ OINT TP SCH (08:17)
[2017-07-28] MEDS: MEROPENEM 500 MG in IV NS 0.9% 50 ML IV SCH ×2 (10:22→22:05)
[2017-07-28 12:00] VITALS: BP 143/50
[2017-07-28 16:00] VITALS: BP 151/55
--- NOTE | 2017-07-28 17:08 | NUR ---
RT NOTE: AFTER ROUTINE VENT CHECK PATIENT IS NOTED TO HAVE A NEW SHILEY #8 XL DISTAL TRACH IN PLACE AT THIS TIME. SUCTIONED SMALL AMOUNT OF THIN BLOOD TINGED SECRETIONS. VENT CHANGES MADE PER 'S ORDERS. VENT ALARMS VERIFIED AND AUDIBLE. AMBU BAG AT [facility].
--- NOTE | 2017-07-28 18:45 | NUR ---
TELEPHONE STERILIZER END NOTES PATIENT RESTING IN BED, NO SIGNS OF DISTRESS, NEW TRACH SHILEY 8 XLT PLACED BLOOD SECRETIONS POST PROCEDURE NOTED. ALL NEEDS MET, TURNED Q2H, WILL ENDORSE TO RIP TAILER FOR CONTINUITY OF CARE
--- NOTE | 2017-07-28 19:30 | NUR ---
IMMIGRATION CASE MANAGER INITIAL NOTES RECEIVED PATIENT OBTUNDED, NON-VERBAL, VENT DEPENDENT. NO S/S OF PAIN OR DISCOMFORT. WITH VENT SETTINGS AC 12, TV 550, FIO2 40%, PEEP 0. S/P TRACH CHANGE DURING DAY SHIFT SHILEY 8XLT, WITH MINIMAL BLEEDING NOTED. NO RESPIRATORY DISTRESS NOTED, SPO2 100%. ON TELE MONITOR SR WITH BBB. NOTED WITH GENERALIZED EDEMA. WITH GT PATENT AND INTACT, IN PLACE. ISOLATION PRECAUTIONS OBSERVED. HOB ELEVATED. SIDE RAILS UP AND LOCKED. BED KEPT AT LOWEST POSITION. WILL CONTINUE TO MONITOR.
[2017-07-28 20:00] VITALS: BP 125/62
[2017-07-29] VITALS: BP 145/44
[2017-07-29] MEDS: IV D5/ 0.9% NACL 1,000 ML IV PRN ×2 (01:12→18:21)
[2017-07-29 04:00] VITALS: BP 157/51
[2017-07-29 06:30] LABS: BASOPHILS % (AUTO) 0.3 % (0.0-2.0); EOSINOPHILS # (AUTO) 0.5 /CMM (0.0-0.7); EOSINOPHILS % (AUTO) 6.6 % (0.0-6.0); HEMATOCRIT 26 % (39-51); HEMOGLOBIN 8.6 g/dL (13.5-17.5); LYMPHOCYTES % (AUTO) 13.7 % (20.0-44.0); MEAN CORPUSCULAR HEMOGLOBIN 28 PG (26.0-33.0); MEAN CORPUSCULAR HGB CONC 33 g/dl (31.0-36.0); MEAN CORPUSCULAR VOLUME 85 fL (80-96); MONOCYTES # (AUTO) 0.5 /CMM (0.1-1.30); MONOCYTES % (AUTO) 7.1 % (2.0-12.0); NEUTROPHILS # (AUTO) 5.1 /CMM (1.8-8.9); NEUTROPHILS % (AUTO) 72.3 % (43.0-81.0); PLATELET COUNT (AUTO) 200 /CMM (150-450); RDW COEFFICIENT OF VARIATION 18.8 (11.5-15.0); RED BLOOD CELL COUNT(AUTO) 3.11 MIL/uL (4.5-6.0)
[2017-07-29 07:05] LABS: CALCIUM, SERUM 8.1 mg/dL (8.5-10.1); CREATININE 4.6 mg/dL (0.6-1.3); POTASSIUM 3.4 mmol/L (3.5-5.1)
[2017-07-29 07:08] LABS: PHOSPHORUS 5.9 mg/dL (2.5-4.9)
--- NOTE | 2017-07-29 07:20 | NUR ---
answering service telephone operator initial notes Received patient in bed, asleep, on mechanical vent with no signs and symptoms of SOB. On tele monitor SR heart rate of 61 with BBB. Whiting in placed attached to drainage bag with no sediment noted. patient is NPO except medication as reported. CHRISTI midline in placed and intact with IVF infusing well. Kept patient clean and comfortable in bed, call light with in patient reach, will continue to monitor accordingly.
--- NOTE | 2017-07-29 07:40 | NUR ---
BALL SHAGGER CLOSING NOTES NO SIGNIFICANT CHANGES OVERNIGHT. NO RESPIRATORY DISTRESS NOTED. NO N/V. NO S/S OF PAIN OR DISCOMFORT. TOLERATING CURRENT VENT SETTINGS. SKIN WARM AND DRY TO TOUCH. GT PATENT AND INTACT, IN PLACE. F/C PATENT AND INTACT, DRAINING BY GRAVITY. KEPT CLEAN AND DRY. TURNED AND REPOSITIONED Q2 AND PRN. SIDE RAILS UP AND LOCKED BED KEPT AT LOWEST POSITION. CONTINUITY OF CARE ENDORSED TO AM NURSE.
[2017-07-29 08:00] VITALS: BP 150/54
[2017-07-29] MEDS: HYDROGEL DRESSING 90 GM TUBE TP SCH ×2 (09:05→09:06)
[2017-07-29] MEDS: FERROUS SULFATE UDC 300 MG/5 ML UDC NG SCH (09:05)
[2017-07-29] MEDS: PANTOPRAZOLE 40 MG VIAL IV SCH ×2 (09:05→16:16)
[2017-07-29] MEDS: SUCRALFATE 1 G/10 ML UDC GT SCH ×4 (09:05→21:28)
[2017-07-29] MEDS: LACTOBACILLUS RHAMNOSUS GG 1 EACH CAP.SPRINK PO SCH ×2 (09:06→16:16)
[2017-07-29] MEDS: Z GUARD REMEDY 2 OZ OINT TP SCH (09:06)
[2017-07-29] MEDS: CADEXOMER IODINE 40 GM TUBE TP SCH ×2 (09:06→09:07)
[2017-07-29] MEDS: MEROPENEM 500 MG in IV NS 0.9% 50 ML IV SCH ×2 (11:23→23:01)
[2017-07-29 12:00] VITALS: BP_SYST 115; BP_SYST 145; BP_DIAS 56; BP_DIAS 69
[2017-07-29 16:00] VITALS: BP 153/64
--- NOTE | 2017-07-29 19:13 | NUR ---
telecom network manager closing notes All needs provided, attended, and anticipated. Kept patient clean and comfortbale in bed, call light with in reach. Endorsed to next shift RN to continue care. On tele monitor SR with BBB heart rate of 56
[2017-07-29 20:00] VITALS: BP 132/46
--- NOTE | 2017-07-29 20:00 | NUR ---
TELE 1 RN NOTE PT IN BED OBTUNDED. ON VENT/TRACH TOLERATING THE SETTINGS WELL. SUCTIONED HIM PRN. THIN WHITE SECRETIONS NOTED. ON TELE SR/SB WITH BBB HR 60. NO DISTRESS OR DISCOMFORT NOTED. NO S/S OF PAIN NOTED. PT IS NPO GT IS CLAMPED EXCEPT FOR MEDICATIONS. CHRISTI WITH MIDLINE INFUSING IVF D5NS @ 70 ML/HR, NO S/S OF INFILTRATION NOTED. REPOSITION HIM FOR SKIN MANAGEMENT WILL DO EVERY 2 HRS. F/C INTACT AND PATENT DRAINING CLOUDY YELLOWISH URINE. SIDE RAILS UP X 3 AND CALL LIGHT WITHIN REACH. KEPT HIM DRY AND CLEAN. VSS. CONTINUE TO MONITOR HIM.
[2017-07-30] VITALS (7 sets, daily range): BP systolic 115–160; BP diastolic 40–60
--- NOTE | 2017-07-30 07:08 | NUR ---
TELE 1 RN NOTE PT IN BED OBTUNDED. NO DISTRESS OR DISCOMFORT NOTED. NO S/S OF PAIN NOTED. . IVF INFUSING WELL, NO S/S OF INFILTRATION NOTED. TOLERATING VENT SETTINGS WELL. SIDE RAILS UP X 3 AND CALL LIGHT WITHIN REACH. ENDORSE TO DAY SHIFT NURSE FOR CONTINUE TO CARE.
--- NOTE | 2017-07-30 07:10 | NUR ---
MINERAL TECHNOLOGIST NOTES PATIENT IN BED, OBTUNDED, EYES CLOSED. SINUS RHYTHM WITH BBB HR 60 ON THE MONITOR, TRACH INTACT, ON VENT. CHRISTI MIDLINE, IVF D5 NS INFUSING AT 70ML/HR. PATIENT IS ON NPO STATUS. ABDOMEN PRESENCE OF GTUBE AND CLAMPED. ON CONTACT ISOLATION, ESBL URINE. DERAS CATH IN PLACE, DRAINING TO GRAVITY. SIDE RAILS UP X2. WILL CONT TO MONITOR.
[2017-07-30 07:11] LABS: BASOPHILS % (AUTO) 0.4 % (0.0-2.0); EOSINOPHILS # (AUTO) 0.4 /CMM (0.0-0.7); EOSINOPHILS % (AUTO) 5.6 % (0.0-6.0); HEMATOCRIT 26 % (39-51); HEMOGLOBIN 8.4 g/dL (13.5-17.5); LYMPHOCYTES # (AUTO) 0.9 /CMM (0.8-4.8); LYMPHOCYTES % (AUTO) 12.4 % (20.0-44.0); MEAN CORPUSCULAR HEMOGLOBIN 28 PG (26.0-33.0); MEAN CORPUSCULAR HGB CONC 32 g/dl (31.0-36.0); MEAN CORPUSCULAR VOLUME 86 fL (80-96); MONOCYTES # (AUTO) 0.6 /CMM (0.1-1.30); NEUTROPHILS # (AUTO) 5.2 /CMM (1.8-8.9); NEUTROPHILS % (AUTO) 73.6 % (43.0-81.0); PLATELET COUNT (AUTO) 203 /CMM (150-450); RDW COEFFICIENT OF VARIATION 18.9 (11.5-15.0); RED BLOOD CELL COUNT(AUTO) 3.02 MIL/uL (4.5-6.0); WHITE BLOOD COUNT (AUTO) 7.1 K/uL (4.3-11.0)
[2017-07-30 07:28] LABS: CALCIUM, SERUM 7.6 mg/dL (8.5-10.1); CREATININE 4.7 mg/dL (0.6-1.3); MAGNESIUM 2.8 mg/dL (1.8-2.4); PHOSPHORUS 6.3 mg/dL (2.5-4.9); POTASSIUM 3.4 mmol/L (3.5-5.1)
[2017-07-30] MEDS: PANTOPRAZOLE 40 MG VIAL IV SCH ×2 (08:22→16:16)
[2017-07-30] MEDS: LACTOBACILLUS RHAMNOSUS GG 1 EACH CAP.SPRINK PO SCH ×2 (08:23→16:16)
[2017-07-30] MEDS: FERROUS SULFATE UDC 300 MG/5 ML UDC NG SCH (08:23)
[2017-07-30] MEDS: SUCRALFATE 1 G/10 ML UDC GT SCH ×4 (08:23→21:55)
[2017-07-30] MEDS: CADEXOMER IODINE 40 GM TUBE TP SCH ×2 (08:35→09:00)
[2017-07-30] MEDS: HYDROGEL DRESSING 90 GM TUBE TP SCH ×2 (08:41→09:35)
[2017-07-30] MEDS: Z GUARD REMEDY 2 OZ OINT TP SCH (08:55)
--- NOTE | 2017-07-30 09:42 | NUR ---
IODOSORB CREAM DUPLICATE ORDER. DC ORDER DIRECTED, IODOSORB APPLY TO LEFT LAT LEG ORDERED.
[2017-07-30] MEDS: MEROPENEM 500 MG in IV NS 0.9% 50 ML IV SCH ×2 (11:28→22:47)
[2017-07-30] MEDS: IV D5/ 0.9% NACL 1,000 ML IV PRN (12:07)
--- NOTE | 2017-07-30 12:42 | NUR ---
LOW POTASSIUM LEVEL 3.[address] KENROY MCDERMOTT WITH NO NEW ORDERS AT THIS TIME, PER MD DO NOT REPLACE.
--- NOTE | 2017-07-30 18:37 | NUR ---
PRODUCTION LINE ASSEMBLER CLOSING NOTES PATIENT IN BED, AWAKE, NON VERBAL. TRACH INTACT, VENT SETTINGS REMAINS THE SAME. ON TELE MONITOR SINUS RHYTHM HR 84, NO SOB. REMAINS ON NPO STATUS ORDERED, CHRISTI MIDLINE PATENT AND INTACT, CONT ON IVF D5 NS INFUSING AT 70ML/HR. ON ANTIBIOTIC WITH NO ADVERSE REACTION, AFEBRILE. TURN AND REPOSITION, WOUND DRESSING CHANGED, ON CONTACT ISOLATION ESBL URINE. WILL ENDORSE TO MELLOWING MACHINE OPERATOR RN FOR ROSALIA.
--- NOTE | 2017-07-30 19:52 | NUR ---
TELE 1 RN NOTE PT IN BED OBTUNDED. ON TRACH/VENT TOLERATING THE SETTINGS WELL. ON TELE SR WITH BBB HR 61. NO DISTRESS OR DISCOMFORT NOTED. NO S/S OF PAIN NOTED. F/C INTACT AND PATENT DRAINING CLOUDY YELLOWISH COLOR URINE. GT INTACT AND PATENT, CLAMPED. PT IS REMAIN NPO EXCEPT MEDICATIONS. CHRISTI MIDLINE INTACT AND PATENT IVF D5NS @ 70 ML/HR INFUSING WELL, NO S/S OF INFILTRATION NOTED. REPOSITION HIM FOR SKIN MANAGEMENT. SIDE RAILS UP X 3 AND CALL LIGHT WITHIN REACH. VSS. CONTINUE TO MONITOR HIM.
[2017-07-31] VITALS (7 sets, daily range): BP systolic 113–141; BP diastolic 36–76
[2017-07-31] MEDS: IV D5/ 0.9% NACL 1,000 ML IV PRN (06:17)
--- NOTE | 2017-07-31 06:43 | NUR ---
AMMUNITION OFFICER NOTES PATIENT IN BED, OBTUNDED, EYES CLOSED. SINUS RHYTHM WITH BBB HR 59 ON THE MONITOR, TRACH INTACT, ON VENT. CHRISTI MIDLINE, IVF D5 NS INFUSING AT 70ML/HR. PATIENT IS ON . GTUBE AND CLAMPED. ON CONTACT ISOLATION, ESBL URINE. DERAS CATH IN PLACE, DRAINING TO GRAVITY. SIDE RAILS UP X2. WILL CONT TO MONITOR.
--- NOTE | 2017-07-31 07:47 | NUR ---
IRRIGATION INSTALLATION SPECIALIST NOTES RECEIVED PT ON BED, OBTUNDED. ON [facility] VENT TOLERATING VENT SETTING WELL. IV ACCESS CHRISTI MIDLINE NO SIGN OF REDNESS OR INFECTION. D5NS RUNNING @70CC/HR INFUSING WELL. HEAD OF BED ELEVATED. RN ADMISSIONS RAILS UP. WILL CONTINUE TO MONITOR PT CLOSELY.
[2017-07-31 07:55] LABS: CREATININE 4.8 mg/dL (0.6-1.3); MAGNESIUM 2.8 mg/dL (1.8-2.4); PHOSPHORUS 6.8 mg/dL (2.5-4.9); POTASSIUM 3.1 mmol/L (3.5-5.1)
[2017-07-31 07:57] LABS: BASOPHILS % (AUTO) 0.3 % (0.0-2.0); EOSINOPHILS # (AUTO) 0.4 /CMM (0.0-0.7); EOSINOPHILS % (AUTO) 6.3 % (0.0-6.0); HEMATOCRIT 27 % (39-51); HEMOGLOBIN 8.7 g/dL (13.5-17.5); LYMPHOCYTES # (AUTO) 0.8 /CMM (0.8-4.8); LYMPHOCYTES % (AUTO) 13.2 % (20.0-44.0); MEAN CORPUSCULAR HEMOGLOBIN 28 PG (26.0-33.0); MEAN CORPUSCULAR HGB CONC 33 g/dl (31.0-36.0); MEAN CORPUSCULAR VOLUME 85 fL (80-96); MONOCYTES # (AUTO) 0.4 /CMM (0.1-1.30); MONOCYTES % (AUTO) 6.3 % (2.0-12.0); NEUTROPHILS # (AUTO) 4.5 /CMM (1.8-8.9); NEUTROPHILS % (AUTO) 73.9 % (43.0-81.0); PLATELET COUNT (AUTO) 210 /CMM (150-450); RDW COEFFICIENT OF VARIATION 19.7 (11.5-15.0); RED BLOOD CELL COUNT(AUTO) 3.13 MIL/uL (4.5-6.0); WHITE BLOOD COUNT (AUTO) 6.1 K/uL (4.3-11.0)
[2017-07-31] MEDS: HYDROGEL DRESSING 90 GM TUBE TP SCH ×2 (08:58→08:59)
[2017-07-31] MEDS: LACTOBACILLUS RHAMNOSUS GG 1 EACH CAP.SPRINK PO SCH ×2 (08:58→17:00)
[2017-07-31] MEDS: SUCRALFATE 1 G/10 ML UDC GT SCH ×4 (08:58→21:56)
[2017-07-31] MEDS: Z GUARD REMEDY 2 OZ OINT TP SCH (08:58)
[2017-07-31] MEDS: FERROUS SULFATE UDC 300 MG/5 ML UDC NG SCH (08:58)
[2017-07-31] MEDS: PANTOPRAZOLE 40 MG VIAL IV SCH ×2 (08:58→19:05)
[2017-07-31] MEDS: CADEXOMER IODINE 40 GM TUBE TP SCH (08:59)
[2017-07-31] MEDS: MEROPENEM 500 MG in IV NS 0.9% 50 ML IV SCH ×2 (11:19→21:56)
--- NOTE | 2017-07-31 18:33 | NUR ---
TESTER OPERATOR NOTES DARIN LOVE ORDERED NOVASOURCE RENAL 30CC/HR.
--- NOTE | 2017-07-31 18:57 | NUR ---
HOTEL REGISTRATION CLERK NOTES NO ACUTE CHANGES NOTED DURING THE SHIFT. ON [facility] VENT SETTING TOLERATING WELL, NO DISTRESS NOTED. IV ACCESS CHRISTI MIDLINE D5NS RUNNING @ 75CC/HR. NO SIGN OF INFECTION NOTED. DUE MEDS GIVEN. HEAD OF BED ELEVATED. SIDE RAILS UP. CALL LIGHT IS PLACED WITHIN REACH. WILL ENDORSED TO THE PM NURSE.
[2017-08-01] VITALS: BP 126/60
[2017-08-01] MEDS: IV D5/ 0.9% NACL 1,000 ML IV PRN ×2 (00:46→00:48)
[2017-08-01 04:00] VITALS: BP 132/68
[2017-08-01 08:00] VITALS: BP 175/65
[2017-08-01] MEDS: SUCRALFATE 1 G/10 ML UDC GT SCH ×4 (08:13→20:43)
[2017-08-01] MEDS: PANTOPRAZOLE 40 MG VIAL IV SCH ×2 (08:13→16:36)
[2017-08-01] MEDS: FERROUS SULFATE UDC 300 MG/5 ML UDC NG SCH (08:13)
[2017-08-01] MEDS: HYDROGEL DRESSING 90 GM TUBE TP SCH ×2 (08:14)
[2017-08-01] MEDS: LACTOBACILLUS RHAMNOSUS GG 1 EACH CAP.SPRINK PO SCH ×2 (08:14→16:36)
[2017-08-01] MEDS: Z GUARD REMEDY 2 OZ OINT TP SCH (08:14)
[2017-08-01] MEDS: CADEXOMER IODINE 40 GM TUBE TP SCH (08:15)
[2017-08-01 08:24] LABS: BASOPHILS % (AUTO) 0.5 % (0.0-2.0); EOSINOPHILS # (AUTO) 0.3 /CMM (0.0-0.7); EOSINOPHILS % (AUTO) 4.4 % (0.0-6.0); HEMATOCRIT 27 % (39-51); LYMPHOCYTES # (AUTO) 0.7 /CMM (0.8-4.8); LYMPHOCYTES % (AUTO) 11.9 % (20.0-44.0); MEAN CORPUSCULAR HEMOGLOBIN 28 PG (26.0-33.0); MEAN CORPUSCULAR HGB CONC 33 g/dl (31.0-36.0); MEAN CORPUSCULAR VOLUME 85 fL (80-96); MONOCYTES # (AUTO) 0.4 /CMM (0.1-1.30); MONOCYTES % (AUTO) 6.8 % (2.0-12.0); NEUTROPHILS # (AUTO) 4.7 /CMM (1.8-8.9); NEUTROPHILS % (AUTO) 76.4 % (43.0-81.0); PLATELET COUNT (AUTO) 152 /CMM (150-450); RDW COEFFICIENT OF VARIATION 20.7 (11.5-15.0); RED BLOOD CELL COUNT(AUTO) 3.21 MIL/uL (4.5-6.0); WHITE BLOOD COUNT (AUTO) 6.2 K/uL (4.3-11.0)
[2017-08-01 08:31] LABS: CALCIUM, SERUM 8.1 mg/dL (8.5-10.1); CREATININE 4.3 mg/dL (0.6-1.3); MAGNESIUM 2.6 mg/dL (1.8-2.4); POTASSIUM 3.2 mmol/L (3.5-5.1)
[2017-08-01] MEDS: MEROPENEM 500 MG in IV NS 0.9% 50 ML IV SCH ×2 (11:35→22:33)
[2017-08-01 12:00] VITALS: BP 129/55
[2017-08-01] MEDS: RENAL NOVASOURCE 1,000 ML BOTTLE GT PRN (14:32)
[2017-08-01 16:00] VITALS: BP 144/47
--- NOTE | 2017-08-01 17:11 | NUR ---
RT NOTE: PATIENT RECEIVED TRACHED ON PB 840 VENT. ALARMS VERIFIED AND AUDIBLE. SUCTIONED MODERATE- LARGE AMOUNT OF THICK CLEAR/WHITE SECRETIONS. VENT PLUGGED IN TO RED OUTLET. AMBU BAG AT [facility].
--- NOTE | 2017-08-01 19:09 | NUR ---
RT NOTE: RECEIVED TRACH PT ON VENT ON NOTED SETTINGS. TRACH WELL SECURED. FLYING TEACHER DONE. VENT PLUGGED INTO RED OUTLET. ALARMS TESTED AND WELL FUNCTIONING WITH AMBU BAG PLACED AT BEDSIDE. SUCTIONED MODERATE AMOUNT OF THICK WHITE SECRETIONS. WILL CONT TO MONITOR PATIENT. Addendum: 08/01/17 at 1913 by RENUKA MATHEWS RT Amended: Links added.
--- NOTE | 2017-08-01 19:10 | NUR ---
FRONT DESK AUXILIARY OPENING NOTES RECEIVED REPORT FROM THERESA ANAYA. PATIENT OBTUNDED ON VENT-TRACH W/ SETTINGS AC 12, TV 550, FIO2 40%, PEEP 0. NO S/S OF RESPIRATORY DISTRESS NOTED. ON TELE A-FIB IN THE 60S. LEFT UPPER ARM MIDLINE INTACT & PATENT W/ DRESSING CDI, SALINE LOCKED. RIGHT FEMORAL HD CATH W/ DRESSING CDI, NO COMPLICATIONS NOTED. DERAS CATH DRAINING LITTLE YELLOW URINE. NO S/S OF PAIN OR DISCOMFORT @ THIS TIME. SAFETY MEASURES IN PLACE W/ SIDE RAILS UP, BED LOCKED & IN LOWEST POSITION & CALL LIGHT WITHIN REACH. WILL CONTINUE TO MONITOR.
[2017-08-01 20:00] VITALS: BP 148/48
[2017-08-01] MEDS ORDERED: DEXTROSE 50%-WATER 50 ML DISP.SYRIN IV PRN (23:00)
[2017-08-01] MEDS: BLOOD SUGAR DIAGNOSTIC 1 EACH STRIP IN SCH (23:49)
[2017-08-01] MEDS: INSULIN REGULAR, HUMAN 100 UNIT/ML 3 ML VIAL SQ PRN (23:50)
[2017-08-02] VITALS: BP 134/45
[2017-08-02 04:00] VITALS: BP 145/45
[2017-08-02] MEDS: INSULIN REGULAR, HUMAN 100 UNIT/ML 3 ML VIAL SQ PRN ×2 (05:37→23:23)
[2017-08-02] MEDS: BLOOD SUGAR DIAGNOSTIC 1 EACH STRIP IN SCH ×4 (05:37→23:25)
[2017-08-02 08:00] VITALS: BP 153/51
--- NOTE | 2017-08-02 08:00 | NUR ---
TELE1/RN AM SHIFT INITIAL NOTES RECEIVED PT AWAKE IN BED, PT IS OBTUNDED, OPEN EYES, NO GRIMACING OR ACUTE CHANGE OF CONDITION, NO FEVER. ON VENTILATOR WITH RATES SET PRESCRIBED, SATURATING @ 100%, LUNG SOUNDS CLEAR, SUCTIONED FOR AIRWAY CLEARANCE. ON TELE MONITORING NOTED WITH CONTROLLED A-FIB, A-FLUTTER, HR 66. ON GOING GTF @ 30CC/HR, NO GASTRIC RESIDUAL NOTED, FLUSHED PATENT. DERAS CATHETER INTACT NOTED WITH CLEAR YELLOW URINE OUTPUT. PT IS COMFORTABLE. SCHEDULED AM MEDS TO BE GIVEN. CL WITHIN REACHED, SAFETY MAINTAINED AND ISOLATION OBSERVED. ON GOING MONITORING.
[2017-08-02] MEDS: HYDROGEL DRESSING 90 GM TUBE TP SCH ×2 (09:00→09:45)
[2017-08-02] MEDS: FERROUS SULFATE UDC 300 MG/5 ML UDC NG SCH (09:44)
[2017-08-02] MEDS: LACTOBACILLUS RHAMNOSUS GG 1 EACH CAP.SPRINK PO SCH ×2 (09:44→17:40)
[2017-08-02] MEDS: PANTOPRAZOLE 40 MG VIAL IV SCH ×2 (09:44→17:40)
[2017-08-02] MEDS: SUCRALFATE 1 G/10 ML UDC GT SCH ×4 (09:44→21:21)
[2017-08-02] MEDS: Z GUARD REMEDY 2 OZ OINT TP SCH (09:45)
--- NOTE | 2017-08-02 09:45 | NUR ---
TELE1/RN ROUNDS - DR. GUTIERREZ PT SEEN & EXAMINED BY DR. GUTIERREZ. NO NEW ORDERS RECEIVED AT THIS TIME. MONITORING CONTINUED.
[2017-08-02] MEDS: CADEXOMER IODINE 40 GM TUBE TP SCH (09:46)
[2017-08-02 12:00] VITALS: BP 141/50
[2017-08-02] MEDS: MEROPENEM 500 MG in IV NS 0.9% 50 ML IV SCH ×2 (12:19→23:25)
[2017-08-02 16:00] VITALS: BP 156/51
--- NOTE | 2017-08-02 17:30 | NUR ---
TELE1/RN AFTERNOON ROUNDS PM CARE PROVIDED. NO CHANGE OF CONDITION. MONITORING CONTINUED.
--- NOTE | 2017-08-02 19:33 | NUR ---
RN OPENING NOTE RECEIVED REPORT FROM AM RN. PATIENT OBTUNDED ON VENT-TRACH W/ SETTINGS AC 12, TV 550, FIO2 40%, PEEP 0, SHILEY 8. NO S/S OF RESPIRATORY DISTRESS NOTED. ON RETRIMMER- SINUS RYTHM AT THIS MOMENT. LEFT UPPER ARM MIDLINE INTACT , SALINE LOCKED. RIGHT FEMORAL HD CATH W/ DRESSING CDI, NO COMPLICATIONS NOTED. DERAS CATH DRAINING SMALL AMOUNT OF URINE URINE. NO S/S OF PAIN OR DISCOMFORT NOTED. SIDE RAILS UP X 2, BED LOCKED AND IN THE LOWEST POSITION & CALL LIGHT WITHIN REACH. WILL CONTINUE TO MONITOR PATIENT
--- NOTE | 2017-08-02 19:34 | NUR ---
TELE1/RN AM SHIFT END NOTES NO ACUTE CHANGE OF CONDITION NOTED DURING THE SHIFT. ALL NEEDS MET. PT ENDORSED TO PM NURSE TO CONTINUE CARE. CL WITHIN REACHED, SAFETY MAINTAINED AND ISOLATION OBSERVED.
[2017-08-02 20:00] VITALS: BP 133/72
--- NOTE | 2017-08-02 20:26 | NUR ---
RECEIVED PT ON VENT SUPPORT, PT STABLE NO SOB OR DISTRESS NOTED, WILL CONTINUE MONITORING PER MDS ORDERS. Addendum: 08/02/17 at 2025 by VALERIE BEVERLY RT Amended: Links added.
--- NOTE | 2017-08-02 22:41 | NUR ---
RN NOTE LEFT MESSAGE WITH YULI [phone], AND MINDY BARAJAS AT [phone] TO OBTAIN CONSENT FOR WOUND DEBRIDEMENT, NO ONE ANSWERED, NOTIFIED CHARGE NURSE CHIKI
[2017-08-03] VITALS: BP 142/71
[2017-08-03] MEDS: RENAL NOVASOURCE 1,000 ML BOTTLE GT PRN (02:42)
[2017-08-03 04:00] VITALS: BP 142/69
--- NOTE | 2017-08-03 06:31 | NUR ---
JACLYN NOTE CALLED AGAIN TO OBTAIN CONSENT FOR WOUND DEBRIDMENT AT [phone] AND YULI [phone], LEFT MESSAGE WITH YULI TO CALL BACK TO OBTAIN CONSENT
--- NOTE | 2017-08-03 06:32 | NUR ---
RN NOTE CHARGE NURSE CHIKI IS AWARE THAT FAMILY IS NOT ANSWERING PHONE TO OBTAIN WOUND DEBRIDEMENT CONSENT
[2017-08-03] MEDS: BLOOD SUGAR DIAGNOSTIC 1 EACH STRIP IN SCH ×4 (06:58→23:34)
--- NOTE | 2017-08-03 07:42 | NUR ---
MIRROR DEPARTMENT SUPERVISOR CLOSING NOTES NO SIGNIFICANT CHANGES DURING MY SHIFT. NO RESPIRATORY DISTRESS NOTED. NO NAUSEA VOMITING, INCREASED ORAL SECRETIONS NO S/S OF PAIN OR DISCOMFORT. TOLERATING CURRENT VENT SETTINGS WELL SO2 100%. SKIN WARM AND DRY TO TOUCH. GT PATENT AND INTACT, IN PLACE. F/C PATENT AND INTACT, DRAINING BY GRAVITY. KEPT CLEAN AND DRY. TURNED AND REPOSITIONED Q2 AND PRN. SIDE RAILS UP AND LOCKED BED KEPT AT LOWEST POSITION. CONTINUITY OF CARE ENDORSED TO AM NURSE
[2017-08-03 08:00] VITALS: BP 116/76
[2017-08-03] MEDS: FERROUS SULFATE UDC 300 MG/5 ML UDC NG SCH (09:14)
[2017-08-03] MEDS: LACTOBACILLUS RHAMNOSUS GG 1 EACH CAP.SPRINK PO SCH ×2 (09:14→17:44)
[2017-08-03] MEDS: PANTOPRAZOLE 40 MG VIAL IV SCH ×2 (09:14→17:44)
[2017-08-03] MEDS: SUCRALFATE 1 G/10 ML UDC GT SCH ×4 (09:14→21:14)
[2017-08-03 09:15] LABS: CALCIUM, SERUM 8.2 mg/dL (8.5-10.1); MAGNESIUM 2.4 mg/dL (1.8-2.4); PHOSPHORUS 4.7 mg/dL (2.5-4.9); POTASSIUM 3.6 mmol/L (3.5-5.1)
[2017-08-03] MEDS: Z GUARD REMEDY 2 OZ OINT TP SCH (09:15)
[2017-08-03] MEDS: HYDROGEL DRESSING 90 GM TUBE TP SCH ×2 (09:15)
[2017-08-03] MEDS: CADEXOMER IODINE 40 GM TUBE TP SCH (09:15)
[2017-08-03 10:03] LABS: BASOPHILS # (AUTO) 0.3 /CMM (0.0-0.2); BASOPHILS % (AUTO) 3.3 % (0.0-2.0); EOSINOPHILS # (AUTO) 0.3 /CMM (0.0-0.7); HEMATOCRIT 26 % (39-51); HEMOGLOBIN 8.5 g/dL (13.5-17.5); LYMPHOCYTES # (AUTO) 1.1 /CMM (0.8-4.8); LYMPHOCYTES % (AUTO) 12.4 % (20.0-44.0); MEAN CORPUSCULAR HEMOGLOBIN 28 PG (26.0-33.0); MEAN CORPUSCULAR HGB CONC 33 g/dl (31.0-36.0); MEAN CORPUSCULAR VOLUME 85 fL (80-96); MONOCYTES # (AUTO) 0.6 /CMM (0.1-1.30); MONOCYTES % (AUTO) 6.8 % (2.0-12.0); NEUTROPHILS # (AUTO) 6.6 /CMM (1.8-8.9); NEUTROPHILS % (AUTO) 74.5 % (43.0-81.0); PLATELET COUNT (AUTO) 116 /CMM (150-450); RDW COEFFICIENT OF VARIATION 19.8 (11.5-15.0); WHITE BLOOD COUNT (AUTO) 8.9 K/uL (4.3-11.0)
[2017-08-03 12:00] VITALS: BP 116/49
[2017-08-03 16:00] VITALS: BP_SYST 133; BP_SYST 135; BP_DIAS 85
[2017-08-03] MEDS: INSULIN REGULAR, HUMAN 100 UNIT/ML 3 ML VIAL SQ PRN ×2 (18:05→23:39)
--- NOTE | 2017-08-03 19:30 | NUR ---
TELE/RN NOTES: RECEIVED PT. IN BED NON VERBAL ON VENT SETTING TOLERATING WELL. NO FACIAL GRIMACES OR MOANING NOTED. ON GTF TOLERATING WELL. RESIDUAL CHECKED. ON TELE MONITOR AFUTTER. HAS HD CATH ON RIGHT FEMORAL. HAD HD ON 08/03/17 W/ 2L OUT. F/C PATENT AND INTACT DRAINING TO CLEAR YELLOW URINE. ALL NEEDS MEET. CALL LIGHT W/ REACH. WILL CONTINUE TO MONITOR.
[2017-08-03 20:00] VITALS: BP 155/73
--- NOTE | 2017-08-03 20:13 | NUR ---
PT REC'D ON [facility] VENT ON NOTED SETTINGS CHARTED. PT IS COMFORTABLE AND NO RESPIRATORY DISTRESS NOTED. VENT PLUGGED INTO RED OUTLET, AMBU BAG BEDSIDE, ALARMS ARE SET AND AUDIBLE PER POLICY. WILL CONTINUE TO MONITOR. Addendum: 08/04/17 at 0540 by JEREMIE GALARZA RT Amended: Links added.
[2017-08-04] VITALS (7 sets, daily range): BP systolic 148–170; BP diastolic 63–82
[2017-08-04] MEDS: BLOOD SUGAR DIAGNOSTIC 1 EACH STRIP IN SCH ×3 (06:49→17:26)
--- NOTE | 2017-08-04 07:30 | NUR ---
RN NOTES RECEIVED PATIENT IN BED ON [facility] VENT WITH BREATHING NORMAL, EVEN AND UNLABORED. NO SOB NOTED. NO ACUTE DISTRESS NOTED. VENT SETTING REVIEWED AND VERIFIED. TOLERATED WELL. TELE MONITOR REVEALS A FLUTTER, HR=80. AFEBRILE. ON GT FEED NOVASOURCE @ 40CC/HR. TOLERATED WELL. NO RESIDUAL NOTED. HOB ELEVATED. ASPIRATION PRECAUTION TAKEN. F/C IS PATENT AND INTACT, DRAINING WITH GRAVITY. KEPT CLEAN, DRY AND COMFORTABLE. ALL NEEDS ATTENDED. SAFETY MEASURE OBSERVED. CALL LIGHT WITH IN REACH. WILL CONT TO MONITOR.
--- NOTE | 2017-08-04 07:32 | NUR ---
TELE/RN NOTES: PT. IN BED RESTING NONVERBAL TOLERATING VENT SETTING WELL. NOT IN ANY DISTRESS. ALL NEEDS MEET AND ATTENDED. REPORT GIVEN TO NEXT SHIFT NURSE FOR CONTINUE OF CARE.
[2017-08-04 08:45] LABS: BASOPHILS % (AUTO) 0.2 % (0.0-2.0); EOSINOPHILS # (AUTO) 0.3 /CMM (0.0-0.7); EOSINOPHILS % (AUTO) 4.1 % (0.0-6.0); HEMATOCRIT 26 % (39-51); HEMOGLOBIN 8.6 g/dL (13.5-17.5); LYMPHOCYTES # (AUTO) 1.1 /CMM (0.8-4.8); LYMPHOCYTES % (AUTO) 14.2 % (20.0-44.0); MEAN CORPUSCULAR HEMOGLOBIN 28 PG (26.0-33.0); MEAN CORPUSCULAR HGB CONC 33 g/dl (31.0-36.0); MEAN CORPUSCULAR VOLUME 84 fL (80-96); MONOCYTES # (AUTO) 0.7 /CMM (0.1-1.30); MONOCYTES % (AUTO) 8.9 % (2.0-12.0); NEUTROPHILS # (AUTO) 5.9 /CMM (1.8-8.9); NEUTROPHILS % (AUTO) 72.6 % (43.0-81.0); PLATELET COUNT (AUTO) 116 /CMM (150-450); RED BLOOD CELL COUNT(AUTO) 3.09 MIL/uL (4.5-6.0)
[2017-08-04 08:51] LABS: CALCIUM, SERUM 7.8 mg/dL (8.5-10.1); CREATININE 3.5 mg/dL (0.6-1.3); MAGNESIUM 2.2 mg/dL (1.8-2.4); PHOSPHORUS 3.7 mg/dL (2.5-4.9)
[2017-08-04] MEDS: LACTOBACILLUS RHAMNOSUS GG 1 EACH CAP.SPRINK PO SCH ×2 (09:43→17:05)
[2017-08-04] MEDS: PANTOPRAZOLE 40 MG VIAL IV SCH ×2 (09:44→17:05)
[2017-08-04] MEDS: SUCRALFATE 1 G/10 ML UDC GT SCH ×4 (09:44→21:36)
[2017-08-04] MEDS: FERROUS SULFATE UDC 300 MG/5 ML UDC NG SCH (09:44)
[2017-08-04] MEDS: Z GUARD REMEDY 2 OZ OINT TP SCH (09:45)
[2017-08-04] MEDS: HYDROGEL DRESSING 90 GM TUBE TP SCH ×2 (09:45)
[2017-08-04] MEDS: CADEXOMER IODINE 40 GM TUBE TP SCH (10:09)
--- NOTE | 2017-08-04 11:45 | NUR ---
RN NOTES DR SNEED MADE AWARE PATIENT HAS EPISODE OF HR=39 WITH NNO.
--- NOTE | 2017-08-04 17:35 | NUR ---
Male trach pt on mechanical vent, tolerated current vent settings well. Vent is plugged into a red outlet, alarms are set and audible and BVM is at bedside. Addendum: 08/04/17 at 1736 by AZUCENA HOLLY RT Amended: Links added.
--- NOTE | 2017-08-04 19:30 | NUR ---
RN NOTES PATIENT IN BED ON [facility] VENT WITH BREATHING NORMAL, EVEN AND UNLABORED. NO SOB NOTED. NO ACUTE DISTRESS NOTED. VENT SETTING REVIEWED AND VERIFIED. TOLERATED WELL. TELE MONITOR REVEALS A FLUTTER, HR=84. AFEBRILE. ON GT FEED NOVASOURCE @ 40CC/HR. TOLERATED WELL. NO RESIDUAL NOTED. HOB ELEVATED. ASPIRATION PRECAUTION TAKEN. F/C IS PATENT AND INTACT, DRAINING WITH GRAVITY. KEPT CLEAN, DRY AND COMFORTABLE. ALL NEEDS ATTENDED. SAFETY MEASURE OBSERVED. CALL LIGHT WITH IN REACH. WILL CONT TO MONITOR.
[2017-08-05] VITALS (7 sets, daily range): BP systolic 134–160; BP diastolic 59–75
[2017-08-05] MEDS: BLOOD SUGAR DIAGNOSTIC 1 EACH STRIP IN SCH ×4 (00:30→17:54)
[2017-08-05] MEDS: INSULIN REGULAR, HUMAN 100 UNIT/ML 3 ML VIAL SQ PRN (00:33)
[2017-08-05] MEDS: RENAL NOVASOURCE 1,000 ML BOTTLE GT PRN (05:54)
--- NOTE | 2017-08-05 07:10 | NUR ---
RN INITIAL NOTES: REC'D PT ON BED, NOT IN ANY DISTRESS, OBTUNDED, OPENS EYES SPONTANEOUSLY. ON MECH VENT VIA TRACH, SATING AT 100%. IV LINE ACCESS FLUSHING WELL, PATENT & INTACT W/ NO S/SX OF INFECTION/INFILTRATION NOTED. HAS PATENT & INTACT PEG, ON CONT TUBE FEEDING, NO RESIDUAL NOTED UPON CHECKING. PROVIDED COMFORT & SAFETY MEASURES. BED KEPT LOW & IN LOCKED POS. CALL LIGHT PLACED W/IN REACH. WILL CONTINUE TO MONITOR AND ATTEND PT NEEDS.
--- NOTE | 2017-08-05 07:13 | NUR ---
RN NOTES PATIENT ENDORSED TO NEXT SHIFT IN STABLE CONDITION FOR CONTINUITY OF CARE. NO SIGNIFICANT CHANGES NOTED. KEPT CLEAN, DRY AND COMFORTABLE. ALL NEEDS ATTENDED. SAFETY MEASURE OBSERVED. CALL LIGHT WITH IN REACH. WILL CONT TO MONITOR.
[2017-08-05 07:41] LABS: BASOPHILS % (AUTO) 0.1 % (0.0-2.0); EOSINOPHILS # (AUTO) 0.4 /CMM (0.0-0.7); EOSINOPHILS % (AUTO) 4.2 % (0.0-6.0); HEMATOCRIT 28 % (39-51); HEMOGLOBIN 9.1 g/dL (13.5-17.5); LYMPHOCYTES % (AUTO) 10.5 % (20.0-44.0); MEAN CORPUSCULAR HEMOGLOBIN 28 PG (26.0-33.0); MEAN CORPUSCULAR HGB CONC 33 g/dl (31.0-36.0); MEAN CORPUSCULAR VOLUME 85 fL (80-96); MONOCYTES # (AUTO) 0.7 /CMM (0.1-1.30); MONOCYTES % (AUTO) 7.6 % (2.0-12.0); NEUTROPHILS # (AUTO) 7.3 /CMM (1.8-8.9); NEUTROPHILS % (AUTO) 77.6 % (43.0-81.0); PLATELET COUNT (AUTO) 137 /CMM (150-450); RDW COEFFICIENT OF VARIATION 19.7 (11.5-15.0); RED BLOOD CELL COUNT(AUTO) 3.33 MIL/uL (4.5-6.0); WHITE BLOOD COUNT (AUTO) 9.4 K/uL (4.3-11.0)
[2017-08-05 07:51] LABS: ALBUMIN 1.8 g/dL (3.4-5.0); CREATININE 3.9 mg/dL (0.6-1.3); MAGNESIUM 2.4 mg/dL (1.8-2.4); PHOSPHORUS 3.8 mg/dL (2.5-4.9); POTASSIUM 3.2 mmol/L (3.5-5.1); TOTAL PROTEIN, SERUM 6.1 g/dL (6.4-8.2)
[2017-08-05 08:20] LABS: BILIRUBIN,TOTAL 0.5 mg/dL (0.2-1.0)
[2017-08-05] MEDS: FERROUS SULFATE UDC 300 MG/5 ML UDC NG SCH (09:48)
[2017-08-05] MEDS: PANTOPRAZOLE 40 MG VIAL IV SCH ×2 (09:48→17:45)
[2017-08-05] MEDS: SUCRALFATE 1 G/10 ML UDC GT SCH ×4 (09:48→22:05)
[2017-08-05] MEDS: Z GUARD REMEDY 2 OZ OINT TP SCH (09:48)
[2017-08-05] MEDS: LACTOBACILLUS RHAMNOSUS GG 1 EACH CAP.SPRINK PO SCH ×2 (09:48→17:45)
[2017-08-05] MEDS: HYDROGEL DRESSING 90 GM TUBE TP SCH ×2 (09:48)
[2017-08-05] MEDS: CADEXOMER IODINE 40 GM TUBE TP SCH (09:49)
--- NOTE | 2017-08-05 17:23 | NUR ---
Male trach pt received on mechanical vent. Pt tolerated current vent settings well. No changes made. Pt trach is secure. Vent is plugged into a red outlet, alarms are set and audible, and BVM is at bedside. Addendum: 08/05/17 at 1724 by AZUCENA HOLLY RT Amended: Links added.
--- NOTE | 2017-08-05 19:00 | NUR ---
RN CLOSING NOTES: NO ACUTE CHANGES NOTED W/IN SHIFT. PT TOLERATED CURRENT MECH VENT SETTINGS, NO SOB. IV LINE ACCESS KEPT PATENT & INTACT. PT TOLERATED CONT TUBE FEEDING, NO RESIDUAL W/IN SHIFT. PT HAD HD W/ 2L OUTPUT REMOVED C/O BILL. KEPT WELL RESTED. NEEDS ATTENDED. PT TURNED AND REPOSITIONED. WOUND CARE DONE. ISOLATION PREC OBSERVED. ENDORSED TO PM RN FOR ROSALIA.
[2017-08-06] VITALS (7 sets, daily range): BP systolic 137–199; BP diastolic 45–72
[2017-08-06] MEDS: BLOOD SUGAR DIAGNOSTIC 1 EACH STRIP IN SCH ×5 (00:39→23:05)
[2017-08-06] MEDS: INSULIN REGULAR, HUMAN 100 UNIT/ML 3 ML VIAL SQ PRN ×3 (00:39→11:59)
[2017-08-06] MEDS: RENAL NOVASOURCE 1,000 ML BOTTLE GT PRN (06:51)
--- NOTE | 2017-08-06 07:50 | NUR ---
RN OPEN NOTES RECEIVED REPORT FROM SENIOR MATERIALS ANALYST NURSE AT 0725. PATIENT IS IN BED, VENTILATOR DEPENDENT. GASTRIC TUBE IS RUNNING. HIGH BLOOD PRESSURE NOTED GJI=[id number], CHARGE NURSE MADE AWARE. CHARGE NURSE WILL ATTEMPT TO GET A BLOOD PRESSURE MEDICATION ORDER FROM . BED IN LOW POSITION, LOCKED AND TWO SIDE RAILS ARE UP. WILL CONTINUE TO MONITOR AND ASSESS PATIENT DURING MY SHIFT
[2017-08-06] MEDS: LACTOBACILLUS RHAMNOSUS GG 1 EACH CAP.SPRINK PO SCH ×2 (08:50→16:15)
[2017-08-06] MEDS: PANTOPRAZOLE 40 MG VIAL IV SCH ×2 (08:50→16:15)
[2017-08-06] MEDS: FERROUS SULFATE UDC 300 MG/5 ML UDC NG SCH (08:50)
[2017-08-06] MEDS: SUCRALFATE 1 G/10 ML UDC GT SCH ×4 (08:50→21:20)
[2017-08-06] MEDS: HYDROGEL DRESSING 90 GM TUBE TP SCH ×2 (08:54)
[2017-08-06] MEDS: Z GUARD REMEDY 2 OZ OINT TP SCH (08:55)
[2017-08-06] MEDS: CADEXOMER IODINE 40 GM TUBE TP SCH (08:56)
[2017-08-06] MEDS ORDERED: NITROGLYCERIN 30 GM TUBE TP PRN (14:00)
[2017-08-06] MEDS: AMLODIPINE BESYLATE 10 MG TABLET PO SCH (14:01)
--- NOTE | 2017-08-06 17:33 | NUR ---
Male trach pt received on mechanical vent. Pt tolerated current vent settings well. Vent is plugged into a red outlet, alarms are set and audible, and BVM is at bedside. Addendum: 08/06/17 at 1734 by AZUCENA HOLLY RT Amended: Links added.
--- NOTE | 2017-08-06 19:03 | NUR ---
RN CLOSING NOTES PATIENT IS IN BED. OBTUNDED AND NON VERBAL. PATIENT IS ON VENTILATOR, BREATHING BILATERALLY EVEN AND UNLABORED. PATIENT IS ABLE TO TOLERATE FOOD WELL WHILE THE BALLOON IS DEFLATED. NO SIGNS AND SYMPTOMS OF DISTRESS OR PAIN. IV SITE IS INTACT AND PATENT. BED IN LOW POSITION, LOCKED AND TWO SIDE RAILS ARE UP. CALL LIGHT WITHIN REACH FOR SAFETY. ALL NURSING CARE ANTICIPATED AND ATTENDED FOR. PATIENT KEPT CLEAN AND SAFE. WILL ENDORSE TO FORENSICS TEAM DIRECTOR NURSE.
--- NOTE | 2017-08-06 20:10 | NUR ---
RECIEVED MRMORENO IN BED OBTUNDENT TRACH DRESSING CLEAN AND DRY. NOTED HANDS ARE SWOLLOEN ISOLATION D/T ESBL IN THE URINE CONTACT ISOLATION. CONTINUED DERAS CLEAR YELLOW DRAINAGE
--- NOTE | 2017-08-06 20:19 | NUR ---
RT NOTE: PT RECEIVED ON MECH VENT WITH NOTED SETTING. UX DESIGN MANAGER DONE. VENT PLUGGED INTO RED OUTLET. ALARMS SET AND AUDIBLE. AMBU BAG AT HOB. NO SOB OR RESP DISTRESS NOTED. PRN SX GIVEN NEEDED. WILL CONT TO MONITOR PT.
[2017-08-06] MEDS: ATORVASTATIN 40 MG TABLET GT SCH (21:21)
--- NOTE | 2017-08-06 21:40 | NUR ---
REPORT GIVEN TO CHIRAG REGARDING TRANSFER OF THE PATIENT TO ROOM 308-2 QUESTIONS ANSWERED.
[2017-08-07] VITALS: BP_SYST 137; BP_SYST 138; BP_DIAS 45; BP_DIAS 58
[2017-08-07 04:00] VITALS: BP 145/54
[2017-08-07] MEDS: BLOOD SUGAR DIAGNOSTIC 1 EACH STRIP IN SCH ×3 (05:57→18:00)
[2017-08-07] MEDS: RENAL NOVASOURCE 1,000 ML BOTTLE GT PRN (06:04)
[2017-08-07 07:01] LABS: BASOPHILS % (AUTO) 0.1 % (0.0-2.0); EOSINOPHILS # (AUTO) 0.3 /CMM (0.0-0.7); EOSINOPHILS % (AUTO) 3.7 % (0.0-6.0); HEMATOCRIT 28 % (39-51); HEMOGLOBIN 9.2 g/dL (13.5-17.5); LYMPHOCYTES % (AUTO) 13.6 % (20.0-44.0); MEAN CORPUSCULAR HEMOGLOBIN 28 PG (26.0-33.0); MEAN CORPUSCULAR HGB CONC 33 g/dl (31.0-36.0); MEAN CORPUSCULAR VOLUME 84 fL (80-96); MONOCYTES # (AUTO) 0.8 /CMM (0.1-1.30); MONOCYTES % (AUTO) 10.9 % (2.0-12.0); NEUTROPHILS # (AUTO) 5.1 /CMM (1.8-8.9); NEUTROPHILS % (AUTO) 71.7 % (43.0-81.0); PLATELET COUNT (AUTO) 121 /CMM (150-450); RDW COEFFICIENT OF VARIATION 18.8 (11.5-15.0); RED BLOOD CELL COUNT(AUTO) 3.29 MIL/uL (4.5-6.0); WHITE BLOOD COUNT (AUTO) 7.2 K/uL (4.3-11.0)
[2017-08-07] MEDS: INSULIN REGULAR, HUMAN 100 UNIT/ML 3 ML VIAL SQ PRN (07:17)
--- NOTE | 2017-08-07 07:30 | NUR ---
TELE/RN OPENING NOTE PATIENT RECEIVED IN BED AWAKE. NON-VERBAL. ON VENTILATOR. RESPIRATION REGULAR AND UNLABORED. NO SIGNS AND SYMPTOMS OF DISTRESS NOTED. BED LOW AND LOCKED. SIDE RAIL X2 UP. CALL LIGHT WITHIN REACH. WILL CONTINUE TO MONITOR.
--- NOTE | 2017-08-07 07:32 | NUR ---
PT. RECEIVED ON VENT SUPPORT VIA TRACH WITH PARAMETERS SET ORDERED. [facility] VENT PLUGGED INTO RED OUTLET WITH ALARMS ON AND FUNCTIONING. B/S COURSE RHONCHI BILATERAL, SXN MOD. AMNT PALE YELLOW SEMI THICK SECRETIONS. AMBUBAG AT BEDSIDE. Addendum: 08/07/17 at 1708 by FARRUKH BRANCH RT Amended: Links added.
--- NOTE | 2017-08-07 07:34 | NUR ---
tele/rn closing notes PATIENT OBTUNDED, CAN OPEN EYES, CAN RESPOMD WITH VOICE AND TOUCH, ON VENT WITH SETTING ORDERED, , CONTACT ISOLATION ESBL, ON DERAS DRAINING 200 ML URINE. TELE RHTYM AT [place] IN 50'S, REQUIRE REPOSITION AND KEEP SKIN INTACT AND DRY, OFF LOAD LEFT HEEL, REPORT GIVEN TO AM RN. NEEDED SUCTION.
[2017-08-07 07:43] LABS: CALCIUM, SERUM 8.5 mg/dL (8.5-10.1); CREATININE 3.8 mg/dL (0.6-1.3); MAGNESIUM 2.5 mg/dL (1.8-2.4); PHOSPHORUS 3.8 mg/dL (2.5-4.9); POTASSIUM 3.2 mmol/L (3.5-5.1)
[2017-08-07] MEDS: SUCRALFATE 1 G/10 ML UDC GT SCH ×4 (09:05→21:36)
[2017-08-07] MEDS: LACTOBACILLUS RHAMNOSUS GG 1 EACH CAP.SPRINK PO SCH ×2 (09:06→17:50)
[2017-08-07] MEDS: AMLODIPINE BESYLATE 10 MG TABLET PO SCH (09:06)
[2017-08-07] MEDS: PANTOPRAZOLE 40 MG VIAL IV SCH ×2 (09:06→17:50)
[2017-08-07] MEDS: CADEXOMER IODINE 40 GM TUBE TP SCH (09:08)
[2017-08-07] MEDS: Z GUARD REMEDY 2 OZ OINT TP SCH (09:08)
[2017-08-07] MEDS: HYDROGEL DRESSING 90 GM TUBE TP SCH ×2 (09:10→09:11)
--- NOTE | 2017-08-07 10:14 | NUR ---
TELE/RN FERROUS SULFATE 300 MG/5 ML NOT ADMINISTERED YET DUE TO MISSING IN OMNICELLS. FLOOW UP CALL MADE TO PHARM STILL WAITING.
[2017-08-07 10:30] VITALS: BP 146/53
[2017-08-07 12:00] VITALS: BP 132/53
[2017-08-07] MEDS: FERROUS SULFATE UDC 300 MG/5 ML UDC NG SCH (12:20)
--- NOTE | 2017-08-07 14:00 | NUR ---
TELE/RN SEEN BY MD DR DILLARD MADE AWARE OF POTASSIUM LEVEL OF 3.2 AND PER MD NNO.
--- NOTE | 2017-08-07 17:09 | NUR ---
NO VENT CHANGES MADE. Addendum: 08/07/17 at 1709 by FARRUKH BRANCH RT Amended: Links added.
--- NOTE | 2017-08-07 19:25 | NUR ---
RN OPEN NOTES RECEIVED PATIENT RESTING IN BED. NON-VERBAL, AROUSABLE TO TOUCH AND LIGHT PAIN. NO SIGNS OF DISTRESS OR DISCOMFORT. BREATHING EVEN AND UNLABORED. [facility] WITH [facility]TING ORDERED. ON TELE MONITORING WITH AFIB/FLUTTER 62 NOTED. IV ACCESS IN L HAND AND CHRISTI MIDLINE, PATENT AND INTACT, NO SIGNS OF REDNESS OR INFILTRATION. HAS F/C INTACT WITH CLEAR TY FLUID NOTED. HAD G-TUBE INTACT WITH FEEDING RUNNING, PATIENT TOLERATING WELL WITH NO RESIDUAL NOTED. BED IN LOW LOCKED POSITION WITH SIDE RAILS X2. CALL LIGHT WITHIN REACH. WILL CONTINUE TO MONITOR.
[2017-08-07 20:00] VITALS: BP 154/55
[2017-08-07] MEDS: ATORVASTATIN 40 MG TABLET GT SCH (21:37)
[2017-08-08] VITALS: BP 111/66
[2017-08-08] MEDS: BLOOD SUGAR DIAGNOSTIC 1 EACH STRIP IN SCH ×5 (00:03→23:33)
[2017-08-08 04:00] VITALS: BP 131/55
[2017-08-08] MEDS: RENAL NOVASOURCE 1,000 ML BOTTLE GT PRN (05:22)
--- NOTE | 2017-08-08 06:57 | NUR ---
RN CLOSING NOTES PATIENT AWAKE IN BED. NON-VERBAL, AROUSABLE TO TOUCH AND LIGHT PAIN. NO SIGNS OF DISTRESS OR DISCOMFORT. BREATHING EVEN AND UNLABORED. ON MECH VENT WITH SETTING ORDERED. ON TELE MONITORING WITH AFIB 66 NOTED. IV ACCESS IN L HAND AND CHRISTI MIDLINE, PATENT AND INTACT, NO SIGNS OF REDNESS OR INFILTRATION. HAS F/C INTACT WITH CLOUDY TY FLUID NOTED. HAS G-TUBE INTACT WITH FEEDING RUNNING, PATIENT TOLERATING WELL WITH NO RESIDUAL NOTED. ALL NEEDS MET. NO SIGNIFICANT CHANGES THROUGH THE NIGHT. REPOSITIONED Q2H AND PRN. BED IN LOW LOCKED POSITION WITH SIDE RAILS X2. CALL LIGHT WITHIN REACH. WILL ENDORSE TO AM SHIFT FOR ROSALIA.
--- NOTE | 2017-08-08 07:30 | NUR ---
TELE/RN OPENING NOTE RECEIVED THE PATIENT IN BED AND SLEEPING. RESPONSIVE TO VERBAL AND TACTILE STIMULI. THE PATIENT IS NON-VERBAL AND ON MECH VENT. RESPIRATION REGULAR AND UNLABORED. AFLUTTER AT 65 NOTED. IN NO APPARENT DISTRESS. IV ACCESS IN L HAND AND CHRISTI MIDLINE, PATENT AND NO S/SX INFILTRATION NOTED. DERAS WITH CLEAR YELLOW COLOR URINE. NO BLADDER DISTENSION NOTED. GT FEEDING HELD DUE TO NPO ORDER FOR PERMA CATH PLACEMENT. BED LOW AND LOCKED. SIDE RAIL X2 UP CALL LIGHT WITHIN REACH. WILL CONTINUE TO MONITOR.
[2017-08-08 08:00] VITALS: BP 156/77
[2017-08-08] MEDS: PANTOPRAZOLE 40 MG VIAL IV SCH ×2 (09:00→16:09)
[2017-08-08] MEDS: LACTOBACILLUS RHAMNOSUS GG 1 EACH CAP.SPRINK PO SCH ×2 (09:00→16:08)
[2017-08-08] MEDS: AMLODIPINE BESYLATE 10 MG TABLET PO SCH ×2 (09:00→16:09)
[2017-08-08] MEDS: HYDROGEL DRESSING 90 GM TUBE TP SCH ×2 (09:32)
[2017-08-08] MEDS: CADEXOMER IODINE 40 GM TUBE TP SCH (09:33)
[2017-08-08] MEDS: Z GUARD REMEDY 2 OZ OINT TP SCH (09:33)
[2017-08-08] MEDS: SUCRALFATE 1 G/10 ML UDC GT SCH ×4 (09:48→21:27)
[2017-08-08] MEDS: FERROUS SULFATE UDC 300 MG/5 ML UDC NG SCH ×2 (09:48→16:08)
[2017-08-08] MEDS ORDERED: HEPARIN SODIUM,PORCINE 1000 UNIT/1ML MDV VIAL IV ONE (12:16)
[2017-08-08] MEDS ORDERED: HEPARIN SODIUM, PORCINE 1,000 UNIT/ML VIAL IV ONE (12:23)
[2017-08-08 16:00] VITALS: BP 128/72
--- NOTE | 2017-08-08 18:15 | NUR ---
TELE/RN NOTE CALLED MULTIPLE TIMES TO DELIA ROLDAN AND DELIA BARAJAS IN ORDER TO OBTAIN CONSENTS FOR PERMA CATH PROCEDURE, HOWEVER, NO CALL BACK. ENDORSED TO FLAKE MILLER WHEAT AND OATS TO CONTINUE TO FOLLOW UP.
--- NOTE | 2017-08-08 18:55 | NUR ---
TELE/RN CLOSING NOTE PATIENT IN BED AND OPENS EYE TO VERBAL AND TACTILE STIMULI. RESPIRATION REGULAR AND UNLABORED. VENT ON PER ORDER SETTING. NO MANIFESTATION OF PAIN, SOB NOTED. IN NO APPARENT DISTRESS. DERAS CATH DRAINING CLEAR, YELLOW OUTPUT. L HAND AND CHRISTI MIDLINE, PATENT AND NO S/SX INFILTRATION NOTED. GT FEEDING DARRON WELL. HOB ELEVATED TO PREVENT ASPIRATION. BED LOW AND LOCKED. SIDE RAIL X2 UP CALL LIGHT WITHIN REACH. WILL CONTINUE TO MONITOR.
--- NOTE | 2017-08-08 19:15 | NUR ---
RN OPEN NOTES RECEIVED PATIENT RESTING IN BED. NON-VERBAL, AROUSABLE TO TOUCH AND LIGHT PAIN. NO SIGNS OF DISTRESS OR DISCOMFORT. BREATHING EVEN AND UNLABORED. [facility] WITH SETTING ORDERED. ON TELE MONITORING WITH AFIB 64 NOTED. IV ACCESS IN L HAND AND CHRISTI MIDLINE, PATENT AND INTACT, NO SIGNS OF REDNESS OR INFILTRATION. HAS F/C INTACT WITH CLEAR YELLOW FLUID NOTED. HAS G-TUBE INTACT WITH FEEDING RUNNING, PATIENT TOLERATING WELL WITH NO RESIDUAL NOTED. BED IN LOW LOCKED POSITION WITH SIDE RAILS X2. CALL LIGHT WITHIN REACH. WILL CONTINUE TO MONITOR.
[2017-08-08 20:00] VITALS: BP 143/78
--- NOTE | 2017-08-08 20:48 | NUR ---
RN NOTES L/M FOR PATIENT NEXT OF KIN YULI LIN [phone], FOR CONSENT FOR PERMACATH PLACEMENT SCHEDULED FOR TOMORROW AM. WILL REATTEMPT.
[2017-08-08] MEDS: ATORVASTATIN 40 MG TABLET GT SCH (21:27)
--- NOTE | 2017-08-08 22:07 | NUR ---
RN NOTES L/M FOR PATIENT NEXT OF KIN YULI LIN [phone], TO OBTAIN CONSENT FOR PERMACATH PLACEMENT SCHEDULED FOR TOMORROW AM. WILL REATTEMPT IN AM.
[2017-08-08] MEDS: INSULIN REGULAR, HUMAN 100 UNIT/ML 3 ML VIAL SQ PRN (23:35)
[2017-08-09] VITALS: BP 120/58
[2017-08-09 04:00] VITALS: BP 132/73
[2017-08-09] MEDS: BLOOD SUGAR DIAGNOSTIC 1 EACH STRIP IN SCH ×4 (05:26→23:24)
--- NOTE | 2017-08-09 07:10 | NUR ---
RN NOTES: PATIENT RESTING IN BED. NO SIGNS OF DISTRESS. PATIENT ON VENT WITH ORDERED SETTINGS, SPO2 WNL. NO COUGHING. NO FACIAL GRIMACING. LEFT UPPER EXTREMITY MIDLINE PATENT AND INTACT. LEFT HAND IV PATENT AND INTACT. BED IN LOWEST LOCKED POSITION. CALL LIGHT WITHIN REACH. WILL CONTINUE TO MONITOR PATIENT
--- NOTE | 2017-08-09 07:34 | NUR ---
RN CLOSING NOTES PATIENT AWAKE IN BED. NON-VERBAL, AROUSABLE TO TOUCH AND LIGHT PAIN. NO SIGNS OF DISTRESS OR DISCOMFORT. BREATHING EVEN AND UNLABORED. ON MECH VENT WITH SETTING ORDERED. ON TELE MONITORING WITH AFIB 61 NOTED. IV ACCESS IN L HAND AND CHRISTI MIDLINE, PATENT AND INTACT, NO SIGNS OF REDNESS OR INFILTRATION. HAS F/C INTACT WITH CLOUDY TY FLUID NOTED. HAS G-TUBE INTACT WITH NO RESIDUAL NOTED THROUGHOUT SHIFT. ALL NEEDS MET. NO SIGNIFICANT CHANGES THROUGH THE NIGHT. REPOSITIONED Q2H AND PRN. BED IN LOW LOCKED POSITION WITH SIDE RAILS X3. CALL LIGHT WITHIN REACH. ENDORSED TO AM SHIFT FOR ROSALIA.
[2017-08-09 08:00] VITALS: BP 129/71
[2017-08-09] MEDS: HYDROGEL DRESSING 90 GM TUBE TP SCH ×2 (09:00→11:32)
[2017-08-09] MEDS: CADEXOMER IODINE 40 GM TUBE TP SCH (09:00)
[2017-08-09] MEDS: AMLODIPINE BESYLATE 10 MG TABLET PO SCH (09:00)
[2017-08-09] MEDS: SUCRALFATE 1 G/10 ML UDC GT SCH ×4 (09:00→22:35)
[2017-08-09] MEDS: LACTOBACILLUS RHAMNOSUS GG 1 EACH CAP.SPRINK PO SCH ×2 (09:00→16:02)
[2017-08-09] MEDS: FERROUS SULFATE UDC 300 MG/5 ML UDC NG SCH (09:00)
[2017-08-09] MEDS: PANTOPRAZOLE 40 MG VIAL IV SCH ×2 (10:08→16:05)
[2017-08-09] MEDS: Z GUARD REMEDY 2 OZ OINT TP SCH (10:12)
[2017-08-09] MEDS: RENAL NOVASOURCE 1,000 ML BOTTLE GT PRN (11:33)
[2017-08-09 16:00] VITALS: BP 137/53
--- NOTE | 2017-08-09 19:30 | NUR ---
ADVERTISING DISPATCH CLERKS SUPERVISOR NOTES RECEIVED PT IN BED, NO DISTRESS, NO SOB NOTED. ON TRACH WITH VENT, DARRON WELL. SUCTIONED PRN. GTF DARRON WELL, ON ASPIRATION PRECAUTION. A. FIB/ A. FLUTTER 59 ON TELE MONITOR AT THIS TIME. RIGHT FEMORAL HD CATH IN PLACE, NO BLEEDING NOTED AT THIS TIME. LEFT HAND AND JOSEPH IV SITE INTACT AND PATENT, NO S/S OF INFILTRATION NOTED. ALL NEEDS ANTICIPATED AND ATTENDED. CALL LIGHT WITHIN REACH. WILL CONT TO MONITOR.
--- NOTE | 2017-08-09 19:35 | NUR ---
RN NOTES: PATIENT RESTING IN BED. NO SIGNS OF DISTRESS. PATIENT ON VENT WITH ORDERED SETTINGS, SPO2 WNL. NO COUGHING. NO FACIAL GRIMACING. LEFT UPPER EXTREMITY MIDLINE PATENT AND INTACT. LEFT HAND IV PATENT AND INTACT. BED IN LOWEST LOCKED POSITION. PATIENT ON TELE MONITORING WITH AFIB/AFLUTTER. CALL LIGHT WITHIN REACH. GTUBE PATENT. PATIENT HAD HEMODIALYSIS TODAY, NO OUTPUT PER HD TECH. SURGERY TO INSERT PERMCATH WAS CANCELLED PER DR POTTS. UNABLE TO REACH FAMILY TO GET CONSENT. PATIENT'S FAMILY CONTACTED VIA PROVIDED NUMBERS. HOWEVER, UNABLE TO REACH. DR SALINAS NOTIFIED. HE ORDERED TO CONTINUE HIS FEEDINGS AND MEDICATIONS TILL WE ARE ABLE TO OBTAIN CONSENT/SCHEDULE PROCEDURE WITH DR POTTS. NO LAB ORDERS FOR TODAY PER DR SALINAS ORDERS. WOUND CARE DONE. PATIENT TURNED AND REPOSITIONED EVERY 2 HOURS. PATIENT STARTED ON FEEDING, TOLERATED WELL, NO RESIDUAL NOTED. NO FEVERS DURING SHIFT. ENDORSED TO NEXT SHIFT
[2017-08-09 20:00] VITALS: BP_SYST 125; BP_SYST 129; BP_DIAS 43
--- NOTE | 2017-08-09 20:00 | NUR ---
RN NOTES: PATIENT RESTING IN BED. NO SIGNS OF DISTRESS. PATIENT ON VENT WITH ORDERED SETTINGS, SPO2 WNL. NO COUGHING. NO FACIAL GRIMACING. LEFT UPPER EXTREMITY MIDLINE PATENT AND INTACT. LEFT HAND IV PATENT AND INTACT. BED IN LOWEST LOCKED POSITION. PATIENT AFIB ON TELE MONITOR. CALL LIGHT WITHIN REACH. WILL CONTINUE TO MONITOR PATIENT
[2017-08-09] MEDS: ATORVASTATIN 40 MG TABLET GT SCH (22:35)
[2017-08-10] VITALS: BP 141/45
[2017-08-10 04:00] VITALS: BP 127/89
[2017-08-10] MEDS: BLOOD SUGAR DIAGNOSTIC 1 EACH STRIP IN SCH ×3 (06:08→18:34)
--- NOTE | 2017-08-10 06:08 | NUR ---
BS : 117 AT THIS TIME, NO COVERAGE PER SS. PT IS ON NOVASOURCE RENAL GTF DARRON WELL. NO RESIDUAL NOTED. NO S/S OF HYPOGLYCEMIA NOTED. WILL CONT TO MONITOR.
--- NOTE | 2017-08-10 06:49 | NUR ---
DEMOLITION CRANE OPERATOR NOTES PT IN BED, APPEARS COMFORTABLE. NO DISTRESS, NO SOB NOTED. ON TRACH WITH VENT, DARRON WELL. SUCTIONED PRN. GTF DARRON WELL, ON ASPIRATION PRECAUTION. A. FIB/ A. FLUTTER 65 ON TELE MONITOR AT THIS TIME. RIGHT FEMORAL HD CATH IN PLACE, NO BLEEDING NOTED AT THIS TIME. LEFT HAND AND JOSEPH IV SITE INTACT AND PATENT, NO S/S OF INFILTRATION NOTED. FC IS INTACT AND PATENT, DARINING WELL WITH YELLOW URINE. ALL NEEDS ANTICIPATED AND ATTENDED. CALL LIGHT WITHIN REACH. WILL ENDORSE TO NEXT SHIFT FOR ROSALIA.
--- NOTE | 2017-08-10 07:00 | NUR ---
RN NOTES PTIENT RESTING IN BED, OBTUNDED, OPENING EYES SONTANEOUSLY. ON VENT WITH ORDERED SETTING. TELE MONITORING AFIB/CONTROLLED. IV AND MIDLINE PATENT AND INTACT. TEMPORARY FEMORAL CATHETER INTACT. NO SIGNS OF BLEEDING NOTED,DRESSING INTACT. NO FACIAL GRIMACING NONLABORED BREATHING NOTED.
[2017-08-10 08:00] VITALS: BP 130/71
[2017-08-10] MEDS: RENAL NOVASOURCE 1,000 ML BOTTLE GT PRN (09:22)
[2017-08-10] MEDS: CADEXOMER IODINE 40 GM TUBE TP SCH (09:26)
[2017-08-10] MEDS: SUCRALFATE 1 G/10 ML UDC GT SCH ×4 (09:36→21:14)
[2017-08-10] MEDS: FERROUS SULFATE UDC 300 MG/5 ML UDC NG SCH (09:38)
[2017-08-10] MEDS: LACTOBACILLUS RHAMNOSUS GG 1 EACH CAP.SPRINK PO SCH ×2 (09:39→17:30)
[2017-08-10] MEDS: AMLODIPINE BESYLATE 10 MG TABLET PO SCH (09:39)
[2017-08-10] MEDS: PANTOPRAZOLE 40 MG VIAL IV SCH ×2 (09:43→17:34)
--- NOTE | 2017-08-10 09:57 | NUR ---
TRISH attempted to contact pt's next of kin Vinny Johnny but was unable to leave a message since there is no voicemail setup. TRISH then called Neena Turner and left a voicemail message.
--- NOTE | 2017-08-10 10:44 | NUR ---
MS/RN Consent Call placed to son and daughter to attempt to obtain consent for permcath placement, no answer, voice mail left requesting call back as soon as possible. -Neena Turner - Vinny Turner -
[2017-08-10] MEDS: HYDROGEL DRESSING 90 GM TUBE TP SCH ×2 (13:54→13:55)
[2017-08-10] MEDS: Z GUARD REMEDY 2 OZ OINT TP SCH (13:54)
[2017-08-10 16:00] VITALS: BP 130/76
[2017-08-10] MEDS: NYSTATIN TOP POWDER 15 GM BOTTLE TP SCH (18:35)
--- NOTE | 2017-08-10 19:30 | NUR ---
TELE/RN OPENING NOTES PT RECEIVED RESTING IN BED. OBTUNDED. OPENS EYES SPONTANEOUSLY. NONVERBAL. ON VENT WITH SETTINGS NOTED. ON TELE MONITOR SHOWING A.FIB/A.FLUTTER WITH HR 56. DERAS IN PLACE AND DRAINING TO GRAVITY. NOVASOURCE RUNNING 40ML/HR. JOSEPH MIDLINE PATENT AND INTACT. AWAITING CALL BACK FROM PT'S NEXT OF KIN TO OBTAIN CONSENT FOR PERMACATH PLACEMENT. TEMPORARY RIGHT FEMORAL CATH IN PLACE, NO S/S OF BLEEDING. BED IN LOW/LOCKED POSITION WITH CALL LIGHT IN REACH. SIDE RAILS UPX3. WILL CONTINUE TO MONITOR
--- NOTE | 2017-08-10 19:30 | NUR ---
RN NOTES PATIENT RESTING IN BED, OBTUNDED, OPENING EYES SONTANEOUSLY. ON VENT WITH ORDERED SETTING. TELE MONITORING AFIB/AFLUTTER. DR SALINAS AWARE. IV AND MIDLINE PATENT AND INTACT. TEMPORARY FEMORAL CATHETER INTACT. NO SIGNS OF BLEEDING NOTED,DRESSING INTACT. LEFT A VOICEMAIL ON PROVIDED FAMILY MEMBERS NUMBER. AWAITING CALL BACK FROM FAMILY REGARDING CONSENT FOR PERMCATH INSERTION. DR SALINAS UPDATED ON THE ISSUE. PATIENT REMOVED DURING SHIFT FROM ROOM 308-2 TO 329-1 WITH RT SWAN AND NATACHA/ELPIDIO VAUGHAN, TOLERTED WELL. ENDORSED TO NEXT SHIFT
[2017-08-10 20:00] VITALS: BP 149/60
[2017-08-10] MEDS: ATORVASTATIN 40 MG TABLET GT SCH (21:14)
[2017-08-11] VITALS: BP 147/71
[2017-08-11] MEDS: BLOOD SUGAR DIAGNOSTIC 1 EACH STRIP IN SCH ×5 (02:09→23:01)
[2017-08-11] MEDS: INSULIN REGULAR, HUMAN 100 UNIT/ML 3 ML VIAL SQ PRN ×2 (02:12→06:45)
[2017-08-11 04:00] VITALS: BP 121/68
--- NOTE | 2017-08-11 07:30 | NUR ---
TELE/RN OPENING NOTE RECEIVED PATIENT IN BED RESPONSIVE TO TACTILE STIMULI. THE PATIENT IS NON-VERNAL AND ON VENTILATOR. PATIENT TOLERATING VENT ORDERED VENT SETTING WELL. RESPIRATION REGULAR AND UNLABORED. NO MANIFESTATION OF SOB, PAIN/DISTRESS NOTED. THE PATIENT IN NO APPARENT DISTRESS. ON TELE MONITOR AFIB 65. IN NO APPARENT DISTRESS. CHRISTI MIDLINE AND LEFT HAND IV PATENT. NO S/SX INFILTRATION NOTED. GT FEEDING TOLERATING WELL. HOB ELEVATED TO PREVENT ASPIRATION. SIDE RAIL UP X2. BED LOW AND LOCKED. CALL LIGHT WITHIN REACH. WILL CONTINUE TO MONITOR.
--- NOTE | 2017-08-11 07:43 | NUR ---
MS/RN CLOSING NOTES PT REMAINS OBTUNDED. OPENS EYES SPONTANEOUSLY AND AROUSABLE TO PAINFUL STIMULI. ON VENT AND FREQUENT SUCTIONING PROVIDED. ON TELE MONITOR WITH SANDRA/DREW, HR 64. GT FEEDING RUNNING NOVASOURCE AT 40ML/HR. NO RESIDUALS NOTED. DERAS IN PLACE AND DRAINING TO GRAVITY. STILL AWAITING CALL BACK FROM FAMILY TO OBTAIN CONSENT FOR PERMACATH PLACEMENT. TURNED/REPOSITIONED Q2H, LEFT HEEL OFFLOADED AT ALL TIMES. KEPT PT COMFORTABLE DURING SHIFT. TEMPORARY RIGHT FEMORAL CATH IN PLACE. BED IN LOW/LOCKED POSITION WITH CALL LIGHT IN REACH. SIDE RAILS UPX2. ENDORSED TO DAY SHIFT RN ROSALIA.
[2017-08-11 08:00] VITALS: BP 146/65
[2017-08-11] MEDS: LACTOBACILLUS RHAMNOSUS GG 1 EACH CAP.SPRINK PO SCH ×2 (08:38→17:48)
[2017-08-11] MEDS: AMLODIPINE BESYLATE 10 MG TABLET PO SCH (08:38)
[2017-08-11] MEDS: FERROUS SULFATE UDC 300 MG/5 ML UDC NG SCH (08:38)
[2017-08-11] MEDS: PANTOPRAZOLE 40 MG VIAL IV SCH ×2 (08:38→17:48)
[2017-08-11] MEDS: SUCRALFATE 1 G/10 ML UDC GT SCH ×4 (08:38→23:01)
[2017-08-11] MEDS: HYDROGEL DRESSING 90 GM TUBE TP SCH ×2 (08:40→08:41)
[2017-08-11] MEDS: NYSTATIN TOP POWDER 15 GM BOTTLE TP SCH ×2 (08:40→18:53)
[2017-08-11] MEDS: Z GUARD REMEDY 2 OZ OINT TP SCH (08:40)
[2017-08-11] MEDS: CADEXOMER IODINE 40 GM TUBE TP SCH (08:40)
[2017-08-11 09:49] LABS: BASOPHILS % (AUTO) 0.2 % (0.0-2.0); EOSINOPHILS # (AUTO) 0.2 /CMM (0.0-0.7); EOSINOPHILS % (AUTO) 3.4 % (0.0-6.0); HEMATOCRIT 25 % (39-51); HEMOGLOBIN 8.2 g/dL (13.5-17.5); LYMPHOCYTES # (AUTO) 0.7 /CMM (0.8-4.8); LYMPHOCYTES % (AUTO) 10.7 % (20.0-44.0); MEAN CORPUSCULAR HEMOGLOBIN 28 PG (26.0-33.0); MEAN CORPUSCULAR HGB CONC 33 g/dl (31.0-36.0); MEAN CORPUSCULAR VOLUME 85 fL (80-96); MONOCYTES # (AUTO) 0.5 /CMM (0.1-1.30); MONOCYTES % (AUTO) 6.8 % (2.0-12.0); NEUTROPHILS # (AUTO) 5.5 /CMM (1.8-8.9); NEUTROPHILS % (AUTO) 78.9 % (43.0-81.0); PLATELET COUNT (AUTO) 99 /CMM (150-450); RED BLOOD CELL COUNT(AUTO) 2.94 MIL/uL (4.5-6.0)
[2017-08-11 09:53] LABS: CALCIUM, SERUM 8.3 mg/dL (8.5-10.1); CREATININE 3.5 mg/dL (0.6-1.3); POTASSIUM 3.2 mmol/L (3.5-5.1)
[2017-08-11 10:19] LABS: EOSINOPHILS % (MANUAL) 3 % (0-4); LYMPHOCYTES % (MANUAL) 11 % (16-48); MONOCYTES % (MANUAL) 4 % (0-11.0); NEUTROPHILS % (MANUAL) 82 (42-76)
[2017-08-11 12:00] VITALS: BP 153/71
[2017-08-11] MEDS: RENAL NOVASOURCE 1,000 ML BOTTLE GT PRN (12:32)
[2017-08-11 16:00] VITALS: BP 134/44
[2017-08-11 20:00] VITALS: BP 139/60
[2017-08-11] MEDS: ATORVASTATIN 40 MG TABLET GT SCH (23:01)
[2017-08-12] VITALS (7 sets, daily range): BP systolic 118–148; BP diastolic 60–71
--- NOTE | 2017-08-12 02:23 | NUR ---
Received pt on vents support, pt stable on current settings, no sob or respiratory distress noted during the shift, alarm is audible and the vent is plugged into red outlet, will continue monitoring per MDS orders. Addendum: 08/12/17 at 0223 by VALERIE BEVERLY RT Amended: Links added.
[2017-08-12] MEDS: BLOOD SUGAR DIAGNOSTIC 1 EACH STRIP IN SCH ×4 (06:30→23:58)
--- NOTE | 2017-08-12 08:31 | NUR ---
RN INITIAL NOTES Received pt laying in bed with HOB elevated. Currently on a vent and tolerating vent settings well at this time. Pt is arousable to name and touch. No facial grimacing or moaning noted. Reminded pt to use call light when assistance is needed and call light is left within reach. Midline to CHRISTI is intact, patent. Dressing kept clean and dry. Will reposition q2hrs to prevent further skin injuries and will continue to monitor.
[2017-08-12] MEDS: FERROUS SULFATE UDC 300 MG/5 ML UDC NG SCH (09:51)
[2017-08-12] MEDS: AMLODIPINE BESYLATE 10 MG TABLET PO SCH (09:52)
[2017-08-12] MEDS: SUCRALFATE 1 G/10 ML UDC GT SCH ×4 (09:52→20:18)
[2017-08-12] MEDS: PANTOPRAZOLE 40 MG VIAL IV SCH ×2 (09:52→16:47)
[2017-08-12] MEDS: LACTOBACILLUS RHAMNOSUS GG 1 EACH CAP.SPRINK PO SCH ×2 (09:52→16:47)
[2017-08-12] MEDS: NYSTATIN TOP POWDER 15 GM BOTTLE TP SCH ×2 (09:54→16:48)
[2017-08-12] MEDS: CADEXOMER IODINE 40 GM TUBE TP SCH (09:55)
[2017-08-12] MEDS: HYDROGEL DRESSING 90 GM TUBE TP SCH ×2 (09:55→09:58)
[2017-08-12] MEDS: Z GUARD REMEDY 2 OZ OINT TP SCH (09:56)
--- NOTE | 2017-08-12 19:30 | NUR ---
RN NOTES RECEIVED PATIENT IN BED WITH EYES CLOSED, AROUSABLE TO VOICE AND TOUCH. OBTUNDED. NO ACUTE DISTRESS NOTED. NO SIGNS OF PAIN NOTED. TELE READING AFIB/AFLUTTER HR 60-70S. DERAS CATHETER PATENT, INTACT; DRAINING CLEAR YELLOW URINE. IV SITES PATENT, INTACT; FLUSHED. FEMORAL CATH INTACT. VENT SETTINGS ORDERED. GT PATENT, INTACT; IN PLACE. GTF ONGOING. PATIENT TOLERATING GTF. HOB RAISED. CONTACT ISOLATION MAINTAINED. ON LOW BED WITH BILATERAL UPPER SIDE RAILS UP. WILL CONTINUE TO MONITOR.
--- NOTE | 2017-08-12 19:46 | NUR ---
RN CLOSING NOTES All due meds given, needs met and rendered. Pt is arousable to name and touch. Vent dependent, pt is able to tolerate vent settings. No facial grimacing or moaning noted. Tried to call family for consent for perma cath placement, no answer and no call back. Vital signs have been WNL. CHRISTI midline intact, patent. Dressing kept clean and dry. Endorsed to next shift for continuity of care.
[2017-08-12] MEDS: ATORVASTATIN 40 MG TABLET GT SCH (21:19)
--- NOTE | 2017-08-12 21:49 | NUR ---
RN NOTES ATTEMPTED TO CALL PATIENT'S CONTACTS FOR CONSENT FOR PERMA CATH PLACEMENT: JENN LIN [phone] (NO ANSWER; UNABLE TO LEAVE A VOICEMAIL MESSAGE); YULI LIN [phone] (NO ANSWER; MAILBOX IS FULL). WILL ENDORSE TO DAY SHIFT.
[2017-08-12] MEDS: INSULIN REGULAR, HUMAN 100 UNIT/ML 3 ML VIAL SQ PRN (23:59)
[2017-08-13 00:28] VITALS: BP 123/64
[2017-08-13 04:00] VITALS: BP 144/73
--- NOTE | 2017-08-13 06:00 | NUR ---
RN NOTES RECEIVED PATIENT IN BED WITH EYES CLOSED; AROUSABLE TO TOUCH. DUE MEDS GIVEN WITH NO ASE NOTED. NEEDS ATTENDED. NO SYMPTOMS OF HYPER/HYPOGLYCEMIA. KEPT CLEAN AND DRY. SAFETY PRECAUTIONS AND COMFORT MEASURES IN PLACE. WILL GIVE REPORT TO DAY SHIFT FOR CONTINUITY OF CARE.
[2017-08-13] MEDS: RENAL NOVASOURCE 1,000 ML BOTTLE GT PRN (06:29)
[2017-08-13] MEDS: BLOOD SUGAR DIAGNOSTIC 1 EACH STRIP IN SCH ×3 (06:48→17:58)
--- NOTE | 2017-08-13 07:30 | NUR ---
disassembler initial notes received patient in bed, asleep, head of bed elevated, no SOB or distress noted. On mechanical vent with 02 sat of 100%. Whiting in placed attached to drainage bag. on GT feeding Glytrol @ 40ml/hr and tolerated well. On tel monitor afib/aflutter heart rate of 60. Kept patient clean and comfortable in bed, call light with in patient reach, will continue to monitor accordingly.
[2017-08-13 08:00] VITALS: BP_SYST 136; BP_DIAS 57; BP_DIAS 60
[2017-08-13] MEDS: LACTOBACILLUS RHAMNOSUS GG 1 EACH CAP.SPRINK PO SCH ×2 (08:42→16:41)
[2017-08-13] MEDS: FERROUS SULFATE UDC 300 MG/5 ML UDC NG SCH (08:42)
[2017-08-13] MEDS: AMLODIPINE BESYLATE 10 MG TABLET PO SCH (08:42)
[2017-08-13] MEDS: SUCRALFATE 1 G/10 ML UDC GT SCH ×4 (08:42→21:45)
[2017-08-13] MEDS: PANTOPRAZOLE 40 MG VIAL IV SCH ×2 (08:43→16:41)
[2017-08-13] MEDS: Z GUARD REMEDY 2 OZ OINT TP SCH (08:43)
[2017-08-13] MEDS: HYDROGEL DRESSING 90 GM TUBE TP SCH ×2 (08:43)
[2017-08-13] MEDS: CADEXOMER IODINE 40 GM TUBE TP SCH (08:47)
[2017-08-13] MEDS: NYSTATIN TOP POWDER 15 GM BOTTLE TP SCH ×2 (08:48→16:42)
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
[2017-08-13 12:00] VITALS: BP 127/56
[2017-08-13] MEDS: INSULIN REGULAR, HUMAN 100 UNIT/ML 3 ML VIAL SQ PRN (12:02)
--- NOTE | 2017-08-13 12:03 | NUR ---
ms rn notes Blood sugar checked 127 no coverage given. Will continue to monitor.
[2017-08-13 16:00] VITALS: BP 137/59
--- NOTE | 2017-08-13 19:29 | NUR ---
rn cardiac rehab closing notes All needs provided, attended, and anticipated. kept patient clean and comfortable in bed, call light with in patient reach, endorsed to next shift RN to continue care. On mechanical vent with 02 sat of 100%. On tele monitor Afib/aflutter heart rate of 65.
--- NOTE | 2017-08-13 19:35 | NUR ---
TELE/RN OPENING NOTES PT RECEIVED RESTING IN BED, EYES OPEN. ON MECHANICAL VENTILATOR, BREATHING EVEN AND UNLABORED. IN NO APPARENT DISTRESS. ON TELE MONITOR SHOWING A.FLUTTER WITH HR 78. DERAS IN PLACE AND DRAINING TO GRAVITY. NOVASOURCE RUNNING AT 40ML/HR. PT TO BE NPO AT MIGHT FOR PERMACATH INSERTION. CONSENTS SIGNED AND FLAGGED IN THE CHART. BED IN LOW/LOCKED POSITION, CALL LIGHT IN REACH AND SIDE RAILS UPX2. WILL CONTINUE TO MONITOR
[2017-08-13 20:00] VITALS: BP 151/58
[2017-08-13] MEDS: ATORVASTATIN 40 MG TABLET GT SCH (21:46)
[2017-08-14] VITALS: BP 129/60
[2017-08-14] MEDS: BLOOD SUGAR DIAGNOSTIC 1 EACH STRIP IN SCH ×4 (00:45→17:38)
[2017-08-14] MEDS: INSULIN REGULAR, HUMAN 100 UNIT/ML 3 ML VIAL SQ PRN ×2 (00:46→06:29)
--- NOTE | 2017-08-14 07:17 | NUR ---
TELE/RN CLOSING NOTES PT IN BED, MECHANICAL VENT SETTINGS NOTED. SUCTIONED PRN. BREATHING EVEN AND UNLABORED. IN NO APPARENT DISTRESS. ON TELE MONITOR SHOWING A.FIB/A/FLUTTER WITH HR 67. JOSEPH MIDLINE IN PLACE. PT REMAINED NPO POST MIDNIGHT FOR PERMACATH PLACEMENT TODAY. CONSENTS SIGNED AND FLAGGED IN THE CHART. SURGERY CALLED AND SAID DR. DOWNS WILL CHANGE PROCEDURE TIME FROM 1400 TO NOW. TURNED/REPOSITIONED PT Q2H, WOUND CARE PROVIDED ORDERED. DERAS IN PLACE AND DRAINING TO GRAVITY. DAY SHIFT RN UPDATED OF PLAN OF CARE.
--- NOTE | 2017-08-14 07:25 | NUR ---
rn telephone triage initial notes Received patient in bed, asleep, head of bed elevated, on mechanical vent with 02 sat of 100%. Feeding held due to scheduled procedure today which consented by Daughter Neena and verified by other RN. IV intact and patent. Patient is obtunded not on distress. Isolation for ESBL urine. Kept patient clean and comfortable in bed, call light with in patient reach, will continue to monitor accordingly. On tele monitor Afib/aflutter with heart rate o 63.
[2017-08-14] MEDS ORDERED: LIDOCAINE 0.5% HCL 50 ML VIAL ONE (07:47)
[2017-08-14] MEDS ORDERED: HEPARIN SODIUM,PORCINE 1000 UNIT/1ML MDV VIAL IV ONE (07:48)
[2017-08-14 08:00] VITALS: BP 130/64
[2017-08-14] MEDS ORDERED: FENTANYL PF 100MCG/2ML AMPUL ONE (08:45)
[2017-08-14] MEDS: AMLODIPINE BESYLATE 10 MG TABLET PO SCH (10:08)
[2017-08-14] MEDS: SUCRALFATE 1 G/10 ML UDC GT SCH ×4 (10:08→21:31)
[2017-08-14] MEDS: PANTOPRAZOLE 40 MG VIAL IV SCH ×2 (10:08→17:13)
[2017-08-14] MEDS: HYDROGEL DRESSING 90 GM TUBE TP SCH ×2 (10:09)
[2017-08-14] MEDS: Z GUARD REMEDY 2 OZ OINT TP SCH (10:09)
[2017-08-14] MEDS: CADEXOMER IODINE 40 GM TUBE TP SCH (10:09)
[2017-08-14] MEDS: NYSTATIN TOP POWDER 15 GM BOTTLE TP SCH ×2 (10:10→17:14)
[2017-08-14] MEDS: FERROUS SULFATE UDC 300 MG/5 ML UDC NG SCH (10:12)
[2017-08-14] MEDS: LACTOBACILLUS RHAMNOSUS GG 1 EACH CAP.SPRINK PO SCH ×2 (10:12→17:38)
--- NOTE | 2017-08-14 12:01 | NUR ---
rn telehealth notes Blood sugar checked 114 no coverage given. Will continue to monitor.
[2017-08-14 16:00] VITALS: BP 128/57
--- NOTE | 2017-08-14 19:14 | NUR ---
telegraphic typewriter operator closing notes All needs provided, attended, and anticipated, kept patient clean and comfortable in bed, call light with in patient reach, endorsed to next shift RN to continue care. on tele monitor afib/aflutter heart rate of 61. Dialysis still on going.
--- NOTE | 2017-08-14 19:30 | NUR ---
telecom specialist initial notes Received patient in bed, asleep, head of bed elevated, on mechanical vent with 02 sat of 100%. IV intact and patent. Patient is obtunded not on distress. Just completed dialysis. 3l output. Isolation for ESBL urine. patient clean and comfortable in bed, call light with in patient reach, will continue to monitor accordingly. On tele monitor Afib/aflutter with heart rate OF 60.
[2017-08-14 20:00] VITALS: BP 123/64
[2017-08-14] MEDS: ATORVASTATIN 40 MG TABLET GT SCH (21:31)
[2017-08-15] VITALS: BP 152/60
[2017-08-15 04:00] VITALS: BP 146/56
--- NOTE | 2017-08-15 06:00 | NUR ---
PROJECT MANAGEMENT PROFESSIONAL NOTE BLOOD SUGAR 102. NO COVERAGE NEEDED.
[2017-08-15] MEDS: BLOOD SUGAR DIAGNOSTIC 1 EACH STRIP IN SCH ×5 (06:31→23:26)
--- NOTE | 2017-08-15 06:32 | NUR ---
TELE/RN CLOSING NOTES PT IN BED, MECHANICAL VENT SETTINGS NOTED. SUCTIONED PRN. BREATHING EVEN AND UNLABORED. IN NO APPARENT DISTRESS. ON TELE MONITOR SHOWING A.FIB/A/FLUTTER WITH HR 67. JOSEPH MIDLINE IN PLACE. CONSENTS SIGNED AND FLAGGED IN THE CHART. TURNED/REPOSITIONED PT Q2H, WOUND CARE PROVIDED ORDERED. DERAS IN PLACE AND DRAINING TO GRAVITY. DAY SHIFT RN UPDATED OF PLAN OF CARE.
[2017-08-15 08:00] VITALS: BP 142/68
--- NOTE | 2017-08-15 08:00 | NUR ---
TELE/RN OPENING NOTES PT RECEIVED RESTING IN BED, EYES OPEN. ON MECHANICAL VENTILATOR, BREATHING EVEN AND UNLABORED. IN NO APPARENT DISTRESS. ON TELE MONITOR SHOWING A FIB WITH A.FLUTTER WITH HR 78. DERAS IN PLACE AND DRAINING TO GRAVITY. NOVASOURCE RUNNING AT 40ML/HR TOLERATING WELL WITH NO RESIDUALS NOTED.HOB KEPT ELEVATED.BED IN LOW/LOCKED POSITION,SKIN CARE RENDERED.TURNED EVERY TWO HOURS. CALL LIGHT IN REACH AND SIDE RAILS UPX2. WILL CONTINUE TO MONITOR
[2017-08-15] MEDS: PANTOPRAZOLE 40 MG VIAL IV SCH ×2 (09:36→17:46)
[2017-08-15] MEDS: AMLODIPINE BESYLATE 10 MG TABLET PO SCH (09:37)
[2017-08-15] MEDS: LACTOBACILLUS RHAMNOSUS GG 1 EACH CAP.SPRINK PO SCH ×2 (09:37→17:46)
[2017-08-15] MEDS: SUCRALFATE 1 G/10 ML UDC GT SCH ×4 (09:37→21:27)
[2017-08-15] MEDS: CADEXOMER IODINE 40 GM TUBE TP SCH (09:40)
[2017-08-15] MEDS: HYDROGEL DRESSING 90 GM TUBE TP SCH ×2 (09:42→09:46)
[2017-08-15] MEDS: FERROUS SULFATE UDC 300 MG/5 ML UDC NG SCH (09:43)
[2017-08-15] MEDS: NYSTATIN TOP POWDER 15 GM BOTTLE TP SCH ×2 (09:45→17:47)
[2017-08-15] MEDS: Z GUARD REMEDY 2 OZ OINT TP SCH (09:45)
[2017-08-15 16:00] VITALS: BP 182/75
--- NOTE | 2017-08-15 18:00 | NUR ---
TELE/RN CLOSING NOTES PT IN BED, MECHANICAL VENT SETTINGS NOTED. SUCTIONED PRN. BREATHING EVEN AND UNLABORED. IN NO APPARENT DISTRESS. ON TELE MONITOR SHOWING A.FIB/A/FLUTTER WITH HR 67. JOSEPH MIDLINE IN PLACE.TURNED/REPOSITIONED PT Q2H, WOUND CARE PROVIDED ORDERED. DERAS IN PLACE AND DRAINING TO GRAVITY.
--- NOTE | 2017-08-15 19:15 | NUR ---
TECHNICAL INTERN OPENING NOTES: RECEIVED PT IN BED AND IS OBTUNDED. PT OPENS EYES. PT NONVERBAL AND ON MECHANICAL VENTILATOR. PT HAS SHILEY 8 XLT. SETTINGS ARE TV 500, AC 12, FIO2 40%, AND PEEP 5. PT ON SEMI-ENCINAS'S POSITION. DERAS CATH IS ATTACHED TO DRAINAGE BAG WITH TY YELLOW URINE NOTED. PT HAS G TUBE AND HAS IS PATENT. HAS BEEN FLUSHED WITH WATER. NO RESIDUAL NOTED. PT ON NOVASOURCE FEEDING 40ML/HR VIA G TUBE. PT HAS CHRISTI MIDLINE ANS HAS BEEN FLUSHED. CURRENTLY S/L. PT ALSO HAS L HAND #18G AND IS PATENT AND INTACT. ALSO SALINE LOCK. PT HAS R PERMA CATH ON R FEMORAL SITE AND ALSO NOTED R INTERNAL JUGULAR PERMA CATH. AREAS KEPT CLEAN, AND DRY. CALL LIGHT WITHIN PT'S REACH. BED KEPT IN LOW, LOCKED POSITION, AND SIDE RAILS X 2UP. WILL CONTINUE TO MONITOR PT.
[2017-08-15 20:00] VITALS: BP 164/71
[2017-08-15] MEDS: ATORVASTATIN 40 MG TABLET GT SCH (21:27)
[2017-08-15] MEDS: RENAL NOVASOURCE 1,000 ML BOTTLE GT PRN (21:43)
[2017-08-15] MEDS: INSULIN REGULAR, HUMAN 100 UNIT/ML 3 ML VIAL SQ PRN (23:55)
--- NOTE | 2017-08-15 23:57 | NUR ---
MAIL ORDER SORTER NOTES: BLOOD SUGAR WAS 118. NO INSULIN WAS ADMINISTERED. WILL CONTINUE TO MONITOR PT.
[2017-08-16] VITALS: BP 138/138
[2017-08-16 04:00] VITALS: BP_SYST 118; BP_SYST 138; BP_DIAS 59; BP_DIAS 78
[2017-08-16] MEDS: BLOOD SUGAR DIAGNOSTIC 1 EACH STRIP IN SCH ×3 (05:08→17:46)
[2017-08-16] MEDS: INSULIN REGULAR, HUMAN 100 UNIT/ML 3 ML VIAL SQ PRN (05:17)
--- NOTE | 2017-08-16 06:54 | NUR ---
AUTOTRANSFUSIONIST CLOSING NOTES: ALL NEEDS WERE ATTENDED AND ANTICIPATED FOR. PT REMAINS IN BED AND IS OBTUNDED. PT TURNED Q 2HRS. PT OPENS EYES. PT NONVERBAL AND ON MECHANICAL VENTILATOR. PT HAS SHILEY 8 XLT. SETTINGS ARE TV 500, AC 12, FIO2 40%, AND PEEP 5. TIE HAS BEEN CHANGED BY RT. PT SUCTIONED PRN. PT ON SEMI-ENCINAS'S POSITION. DERAS CATH IS ATTACHED TO DRAINAGE BAG WITH TY YELLOW URINE NOTED. OUTPUT WAS 200ML. PT HAS G TUBE AND IS PATENT. HAS BEEN FLUSHED WITH WATER. NO RESIDUAL NOTED. PT ON NOVASOURCE FEEDING 40ML/HR VIA G TUBE. PT HAS CHRISTI MIDLINE ANS HAS BEEN FLUSHED. CURRENTLY S/L. PT ALSO HAS L HAND #18G AND IS PATENT AND INTACT. ALSO SALINE LOCK. PT HAS R PERMA CATH ON R FEMORAL SITE AND ALSO NOTED R INTERNAL JUGULAR PERMA CATH. AREAS KEPT CLEAN, AND DRY. CALL LIGHT WITHIN PT'S REACH. BED KEPT IN LOW, LOCKED POSITION, AND SIDE RAILS X 2UP. WILL ENDORSE TO AM NURSE FOR ROSALIA. Addendum: 08/16/17 at 0656 by PATRICIA GUILLEN RN PT ON TELE BOX AND READING SHOWS A FLUTTER 54.
--- NOTE | 2017-08-16 07:30 | NUR ---
RN OPEN NOTES RECEIVED REPORT FROM MOBILE UI/UX DESIGNER NURSE. PATIENT IS IN BED WITH HIS EYES CLOSED, EASILY AROUSED TO LIGHT TOUCH. NO SIGNS AND SYMPTOMS OF DISTRESS. ON VENT DEPENDENT. BREATHING IS BILATERALLY EQUAL AND EVEN. BED IN LOW POSITION, LOCKED AND TWO SIDE RAILS ARE UP. CALL LIGHT WITH IN REACH FOR SAFETY. WILL CONTINUE TO MONITOR AND ASSESS PATIENT THROUGH OUT MY SHIFT
[2017-08-16 08:00] VITALS: BP 156/52
[2017-08-16] MEDS: PANTOPRAZOLE 40 MG VIAL IV SCH ×2 (09:14→16:24)
[2017-08-16] MEDS: FERROUS SULFATE UDC 300 MG/5 ML UDC NG SCH (09:14)
[2017-08-16] MEDS: SUCRALFATE 1 G/10 ML UDC GT SCH ×3 (09:14→16:24)
[2017-08-16] MEDS: LACTOBACILLUS RHAMNOSUS GG 1 EACH CAP.SPRINK PO SCH ×2 (09:14→16:24)
[2017-08-16] MEDS: NYSTATIN TOP POWDER 15 GM BOTTLE TP SCH ×2 (09:15→16:24)
[2017-08-16] MEDS: AMLODIPINE BESYLATE 10 MG TABLET PO SCH (09:15)
[2017-08-16] MEDS: HYDROGEL DRESSING 90 GM TUBE TP SCH ×2 (09:16)
[2017-08-16] MEDS: CADEXOMER IODINE 40 GM TUBE TP SCH (09:17)
[2017-08-16] MEDS: Z GUARD REMEDY 2 OZ OINT TP SCH (09:17)
[2017-08-16 16:00] VITALS: BP 115/46
--- NOTE | 2017-08-16 16:00 | NUR ---
HD DIALYSIS AT BEDSIDE
--- NOTE | 2017-08-16 16:18 | NUR ---
GAVE REPORT TO ANEESH AT [facility]
--- NOTE | 2017-08-16 18:00 | NUR ---
RT RECEIVED PT ON AC MODE ALARMS ON AND AUDIBLE, TRACH PATENT AND SECURED, AMBUBAG AT BEDSIDE, NO APPARENT DISTRESS NOTED PT STABLE AT THIS TIME Addendum: 08/16/17 at 1801 by RADHA PEARL RT Amended: Links added.
--- NOTE | 2017-08-16 18:45 | NUR ---
ELECTRICAL WIRING LINEMAN NOTES DISCHARGE ORDER RECEIVED AND CARRIED OUT. PATIENT IS LEAVING IN A STABLE CONDITION. NO SIGNS AND SYMPTOMS OF DISTRESS. VITAL SIGN 122/53. HEART RATE 52-58. BLOOD SUGAR 123. NO PERSONAL BELONGING AT TIME OF DISCHARGE. REPORT GAVE TO ANEESH AT [facility]. TWO RNs SIGNED DISCHARGE FORM. FORMS PLACED IN THE CHART. IV SITES REMOVED. MID LINE REMOVED. RIGHT IJ PERMCATH INTACT. RIGHT FEMORAL PERMCATH REMOVED BY HD NURSE PRIOR TO DISCHARGE. GASTRIC TUBE INTACT. PICTURES TAKEN AND PLACED IN THE CHART. PATIENT PICKED UP BY AMBULANCE, 2 hydraulic controls technician AND 1 RT. NO NEW CONCERNS UPON DISCHARGE.
[2017-08-17] MEDS ORDERED: SUCR1ORA GT (17:45)
[2017-08-17] MEDS ORDERED: ACID1TAB12 GT (17:45)
[2017-08-17] MEDS ORDERED: TRAM50TA2 GT (17:45)
[2017-08-17] MEDS ORDERED: BLOO-668 IN (17:45)
[2017-08-17] MEDS ORDERED: FOLI0.8T23 GT (17:45)
[2017-08-17] MEDS ORDERED: INSU100V3 SQ (17:45)
[2017-08-17] MEDS ORDERED: NITR1OIN2 TD (17:45)
== END 2017-08-16 18:51 | DRG 252 ==
LOC: ER 15:18 → TELE-TD 17:55 → ICU 07-23 07:45 → TELE1 07-25 06:31 → TELE 08-06 22:07
PROVIDERS: ADMIT Nurse Practitioner Acute Care; ATTEND Nurse Practitioner Acute Care
PROC: 5A1955Z Respiratory Ventilation, Greater than 96 Consecutive Hours (ICD-10-PCS; principal; 2017-07-22)
PROC: 30233N1 Transfusion of Nonautologous Red Blood Cells into Peripheral Vein, Percutaneous Approach (ICD-10-PCS; principal; 2017-07-22)
PROC: B547ZZA Ultrasonography of Left Subclavian Vein, Guidance (ICD-10-PCS; principal; 2017-07-22)
PROC: 30233K1 Transfusion of Nonautologous Frozen Plasma into Peripheral Vein, Percutaneous Approach (ICD-10-PCS; principal; 2017-07-22)
PROC: 05H633Z Insertion of Infusion Device into Left Subclavian Vein, Percutaneous Approach (ICD-10-PCS; principal; 2017-07-22)
PROC: 0DB58ZX Excision of Esophagus, Via Natural or Artificial Opening Endoscopic, Diagnostic (ICD-10-PCS; principal; 2017-07-22)
PROC: 5A1D70Z Performance of Urinary Filtration, Intermittent, Less than 6 Hours Per Day (ICD-10-PCS; 2017-07-27)
PROC: 5A1D70Z Performance of Urinary Filtration, Intermittent, Less than 6 Hours Per Day (ICD-10-PCS; 2017-07-31)
PROC: B54BZZA Ultrasonography of Right Lower Extremity Veins, Guidance (ICD-10-PCS; 2017-07-31)
PROC: 06HM33Z Insertion of Infusion Device into Right Femoral Vein, Percutaneous Approach (ICD-10-PCS; 2017-07-31)
PROC: 0JHL3XZ Insertion of Tunneled Vascular Access Device into Right Upper Leg Subcutaneous Tissue and Fascia, Percutaneous Approach (ICD-10-PCS; 2017-07-31)
PROC: 0JBP0ZZ Excision of Left Lower Leg Subcutaneous Tissue and Fascia, Open Approach (ICD-10-PCS; 2017-07-31)
PROC: 5A1D70Z Performance of Urinary Filtration, Intermittent, Less than 6 Hours Per Day (ICD-10-PCS; 2017-08-01)
PROC: 5A1D70Z Performance of Urinary Filtration, Intermittent, Less than 6 Hours Per Day (ICD-10-PCS; 2017-08-03)
PROC: 5A1D70Z Performance of Urinary Filtration, Intermittent, Less than 6 Hours Per Day (ICD-10-PCS; 2017-08-05)
PROC: 5A1D70Z Performance of Urinary Filtration, Intermittent, Less than 6 Hours Per Day (ICD-10-PCS; 2017-08-07)
PROC: 5A1D70Z Performance of Urinary Filtration, Intermittent, Less than 6 Hours Per Day (ICD-10-PCS; 2017-08-11)
PROC: 0JHD3XZ Insertion of Tunneled Vascular Access Device into Right Upper Arm Subcutaneous Tissue and Fascia, Percutaneous Approach (ICD-10-PCS; 2017-08-14)
PROC: 5A1D70Z Performance of Urinary Filtration, Intermittent, Less than 6 Hours Per Day (ICD-10-PCS; 2017-08-14)
PROC: 05HM33Z Insertion of Infusion Device into Right Internal Jugular Vein, Percutaneous Approach (ICD-10-PCS; 2017-08-14)
PROC: B543ZZA Ultrasonography of Right Jugular Veins, Guidance (ICD-10-PCS; 2017-08-14)
PROC: 5A1D70Z Performance of Urinary Filtration, Intermittent, Less than 6 Hours Per Day (ICD-10-PCS; 2017-08-16)
DX: K94.21 Gastrostomy hemorrhage (principal); N17.0 Acute kidney failure with tubular necrosis; D65 Disseminated intravascular coagulation [defibrination syndrome]; J96.21 Acute and chronic respiratory failure with hypoxia; A41.9 Sepsis, unspecified organism; G93.40 Encephalopathy, unspecified; I50.33 Acute on chronic diastolic (congestive) heart failure; N18.6 End stage renal disease; R53.2 Functional quadriplegia; I69.359 Hemiplegia and hemiparesis following cerebral infarction affecting unspecified side; L89.153 Pressure ulcer of sacral region, stage 3; J90 Pleural effusion, not elsewhere classified; J18.9 Pneumonia, unspecified organism; Z99.11 Dependence on respirator [ventilator] status; I11.0 Hypertensive heart disease with heart failure; K92.2 Gastrointestinal hemorrhage, unspecified; Z87.440 Personal history of urinary (tract) infections; B96.20 Unspecified Escherichia coli [E. coli] as the cause of diseases classified elsewhere; R13.10 Dysphagia, unspecified; D50.9 Iron deficiency anemia, unspecified; E78.5 Hyperlipidemia, unspecified; Z79.82 Long term (current) use of aspirin; Z79.899 Other long term (current) drug therapy; N39.0 Urinary tract infection, site not specified; B96.89 Other specified bacterial agents as the cause of diseases classified elsewhere; I34.0 Nonrheumatic mitral (valve) insufficiency; I27.20 Pulmonary hypertension, unspecified; E87.1 Hypo-osmolality and hyponatremia; Y83.3 Surgical operation with formation of external stoma as the cause of abnormal reaction of the patient, or of later complication, without mention of misadventure at the time of the procedure; Y82.9 Unspecified medical devices associated with adverse incidents; Y92.129 Unspecified place in nursing home as the place of occurrence of the external cause; N50.89 Other specified disorders of the male genital organs; E11.22 Type 2 diabetes mellitus with diabetic chronic kidney disease; E11.51 Type 2 diabetes mellitus with diabetic peripheral angiopathy without gangrene; I13.2 Hypertensive heart and chronic kidney disease with heart failure and with stage 5 chronic kidney disease, or end stage renal disease; K59.00 Constipation, unspecified; Z89.511 Acquired absence of right leg below knee; Z99.2 Dependence on renal dialysis; Z87.11 Personal history of peptic ulcer disease; Z86.14 Personal history of Methicillin resistant Staphylococcus aureus infection; Z82.49 Family history of ischemic heart disease and other diseases of the circulatory system; Z82.3 Family history of stroke; Y95 Nosocomial condition; N40.0 Benign prostatic hyperplasia without lower urinary tract symptoms; N13.30 Unspecified hydronephrosis; L30.4 Erythema intertrigo; I70.0 Atherosclerosis of aorta; Z95.2 Presence of prosthetic heart valve; D68.9 Coagulation defect, unspecified; L98.9 Disorder of the skin and subcutaneous tissue, unspecified; R23.4 Changes in skin texture; E86.1 Hypovolemia; L89.92 Pressure ulcer of unspecified site, stage 2; Z16.12 Extended spectrum beta lactamase (ESBL) resistance; I25.10 Atherosclerotic heart disease of native coronary artery without angina pectoris; K20.9 Esophagitis, unspecified; M62.462 Contracture of muscle, left lower leg; M62.461 Contracture of muscle, right lower leg; B96.5 Pseudomonas (aeruginosa) (mallei) (pseudomallei) as the cause of diseases classified elsewhere; L97.909 Non-pressure chronic ulcer of unspecified part of unspecified lower leg with unspecified severity; D61.818 Other pancytopenia; D62 Acute posthemorrhagic anemia
CPT/HCPCS: 31720; 36415; 71010-TC; 71045-TC; 80048-TC; 80053-TC; 80061-TC; 80076-TC; 80202-TC; 81000-TC; 82272-TC; 82570-TC; 82728-TC; 82746; 82784; 82962-TC; 83540-TC; 83605-TC; 83735-TC; 83880; 83935-TC; 84100-TC; 84155; 84165; 84300-TC; 84443-TC; 84484-TC; 84550-TC; 85025-TC; 85385-TC; 85396; 85730-TC; 86334; 86705; 86709; 86803; 86850-TC; 86921-TC; 87040-TC; 87070-TC; 87081-TC; 87086-TC; 87186-TC; 87340; 88305-TC; 88312-TC; 88342; 90935-TC; 94002-TC; 94003-TC; 94640-TC; 94760-TC; 94762-TC; A4216; A4217; A4606; A6248; A6253; A6402; A6403; A7526; C1750; C9113; J0690; J0696; J1644; J1815; J1940; J2185; J2270; J2543; J2704; J3010; J3370; J3490; J7030; J7040; J7042; J7050; J7060; P9016-BL; P9017-BL; Z7610

== ENCOUNTER 2017-08-17 15:50 | Inpatient (IN) | payer OTHER, MEDICARE ==
[~2017-08-17] VITALS: Ht 175.3 cm; Wt 77.1 kg
[~2017-08-17 15:50] MED LIST changes: -AMIN30LI4 GT; -ASCO500S2 GT; +BISA10SU8 RC; -BLOO-668 IN; -CEFT1FRO2 IV; -CHOL100044 GT; +CRAN3875 GT; -DOCU50LI GT; +FERR-58 GT; -NAPH1POW3 GT; -NUT.100029 GT; -NUT.237L31 GT; +NUT.237L67 GT; -NUTR1PAC14 GT; -ZINC220C8 GT
--- NOTE | 2017-08-17 15:55 | NUR ---
FRED FROM HD CENTER C/O LOW DIASTOLIC BP AND BP FLUCTUATIONS DURING HD. LOWEST DIASTOLIC BP 27 SINCE LAST NIGHT. PATIENT IS VENT/TRACH DEPENDENT. CURENTLY VITALS STABLE. G-TUBE INTACT, DERAS INTACT. PATIENT HAS R BKA. SAFETY AND COMFORT MEASURES IN PLACE. AWAITING MD ORDERS.
--- NOTE | 2017-08-17 16:00 | NUR ---
NEW IV STARTED ON LFA, 18 G. BLOOD DRAWN AND SENT TO LAB .
[2017-08-17 16:08] LABS: BASOPHILS % (AUTO) 0.2 % (0.0-2.0); EOSINOPHILS # (AUTO) 0.2 /CMM (0.0-0.7); EOSINOPHILS % (AUTO) 1.7 % (0.0-6.0); HEMATOCRIT 23 % (39-51); HEMOGLOBIN 7.7 g/dL (13.5-17.5); LYMPHOCYTES # (AUTO) 0.8 /CMM (0.8-4.8); LYMPHOCYTES % (AUTO) 8.5 % (20.0-44.0); MEAN CORPUSCULAR HEMOGLOBIN 27 PG (26.0-33.0); MEAN CORPUSCULAR HGB CONC 33 g/dl (31.0-36.0); MEAN CORPUSCULAR VOLUME 83 fL (80-96); MONOCYTES # (AUTO) 0.5 /CMM (0.1-1.30); MONOCYTES % (AUTO) 5.4 % (2.0-12.0); NEUTROPHILS # (AUTO) 7.6 /CMM (1.8-8.9); NEUTROPHILS % (AUTO) 84.2 % (43.0-81.0); PLATELET COUNT (AUTO) 123 /CMM (150-450); RDW COEFFICIENT OF VARIATION 17.2 (11.5-15.0); RED BLOOD CELL COUNT(AUTO) 2.81 MIL/uL (4.5-6.0); WHITE BLOOD COUNT (AUTO) 9.1 K/uL (4.3-11.0)
[2017-08-17 16:17] LABS: CALCIUM, SERUM 8.1 mg/dL (8.5-10.1); CREATININE 1.6 mg/dL (0.6-1.3); POTASSIUM 2.9 mmol/L (3.5-5.1)
[2017-08-17 16:22] LABS: INR 1.21 (0.87-1.13)
[2017-08-17 16:23] LABS: ALBUMIN 2.1 g/dL (3.4-5.0); BILIRUBIN,DIRECT 0.2 mg/dL (0.0-0.2); BILIRUBIN,TOTAL 0.8 mg/dL (0.2-1.0); TOTAL PROTEIN, SERUM 6.9 g/dL (6.4-8.2)
[2017-08-17 16:25] LABS: TROPONIN I 0.07 ng/mL (0.00-0.056)
--- NOTE | 2017-08-17 16:52 | NUR ---
RT NOTE PT PLACED ON VENT PER MD ORDER. PT VENTILATED VIA SHILEY 8 CUFFED TRACH. CUFF MIDLINE AND SECURE. SETTINGS ENDORSED BY TRANSPORT RT FROM FACILITY AC 12 500 35% +5. ALARMS SET PER PROTOCOL AND AUDIBLE. BILATERAL CHEST RISE NOTED. AMBU BAG AT BED SIDE. NO DISTRESS NOTED. WILL CONTINUE TO MONITOR.
[2017-08-17 16:58] LABS: APPEARANCE,URINE Slightly Cloudy (CLEAR); BILIRUBIN,URINE SMALL (NEGATIVE); BLOOD, URINE Moderate Ery/uL (NEGATIVE); COLOR,URINE Dark (YELLOW); KETONES,URINE Trace (NEGATIVE); LEUKOCYTE ESTERASE ,URINE Small (NEGATIVE); NITRITE, URINE Negative (NEGATIVE); PROTEIN,URINE >=300 mg/dl (NEGATIVE); UGLUCOSE 100 MG/DL mg/dL (NEGATIVE); UROBILINOGEN,URINE 0.2 EU/dL (0.2)
[2017-08-17] MEDS ORDERED: ACETAMINOPHEN 325 MG TABLET PO ONE (17:00)
[2017-08-17] MEDS ORDERED: ACETAMINOPHEN 325 MG TABLET ONE (17:14)
--- NOTE | 2017-08-17 17:14 | NUR ---
DR. HEREDIA PAGECanelo.
[2017-08-17 17:35] LABS: BACTERIA,URINE Many /HPF (None Seen); SQUAMOUS EPITHELIAL CELL,UR Moderate /HPF (None Seen)
[2017-08-17 17:36] LABS: URINE AMORPHOUS URATE Many /HPF (None Seen)
[2017-08-17] MEDS ORDERED: SUCR1ORA GT (17:45)
[2017-08-17] MEDS ORDERED: FOLI0.8T23 GT (17:45)
[2017-08-17] MEDS ORDERED: TRAM50TA2 GT (17:45)
[2017-08-17] MEDS ORDERED: NITR1OIN2 TD (17:45)
[2017-08-17] MEDS ORDERED: INSU100V3 SQ (17:45)
[2017-08-17] MEDS ORDERED: BLOO-668 IN (17:45)
[2017-08-17] MEDS ORDERED: ACID1TAB12 GT (17:45)
[2017-08-17] MEDS ORDERED: VANCOMYCIN 1 GM in IV D5W 250 ML IV ONE (18:00)
[2017-08-17] MEDS ORDERED: CEFEPIME 1 GM in IV D5W 50 ML IV ONE (18:00)
--- NOTE | 2017-08-17 18:10 | NUR ---
BED 117-1
--- NOTE | 2017-08-17 18:41 | NUR ---
REPORT GIVEN FOR ROSALIA
--- NOTE | 2017-08-17 18:50 | NUR ---
PATIENT TRANSPORTED TO [facility] VIA ACLS PROTOCOL. RNMARE TO PROVIDE ROSALIA.
--- NOTE | 2017-08-17 19:00 | NUR ---
Received patient from ER via gurney to room 117-1.No unusual signs or symptoms observed or reported,no signs of discomfort or distress.
[2017-08-17] MEDS ORDERED: ONDANSETRON HCL/PF 4 MG/2 ML VIAL IVP PRN (19:30)
[2017-08-17] MEDS ORDERED: Z GUARD REMEDY 2 OZ OINT TP PRN (19:30)
[2017-08-17] MEDS ORDERED: Medication Not On Formulary EA (Ipratropium/Albuterol Sulfate (Duoneb 2.5-0.5 Mg/3 Ml So IH PRN (19:30)
[2017-08-17] MEDS ORDERED: Medication Not On Formulary EA (Ipratropium/Albuterol Sulfate (Duoneb 2.5-0.5 Mg/3 Ml So IH SCH (19:30)
[2017-08-17] MEDS ORDERED: ACETAMINOPHEN 325 MG TABLET PO PRN (19:30)
[2017-08-17] MEDS ORDERED: MAG HYDROX/AL HYDROX/SIMETH 30 ML UDC PO PRN (19:30)
[2017-08-17] MEDS ORDERED: VANCOMYCIN 1.5 GM in IV D5W 500 ML IV SCH (19:30)
[2017-08-17] MEDS ORDERED: ZOLPIDEM TARTRATE 5 MG TABLET PO PRN (19:30)
[2017-08-17] MEDS ORDERED: MAGNESIUM HYDROXIDE 30 ML UDC PO PRN (19:30)
[2017-08-17] MEDS ORDERED: ALBUTEROL FS 2.5 MG/3 ML VIAL.NEB NEB PRN (19:30)
[2017-08-17] MEDS ORDERED: NITROGLYCERIN PACKET 1 GM PACKET TD PRN (19:30)
[2017-08-17] MEDS ORDERED: ACETAMINOPHEN LIQUID 325 MG/10.1 ML UDC GT PRN (19:30)
[2017-08-17] MEDS ORDERED: FEE PK DOSING 1 MIN EA MC ONE (19:45)
[2017-08-17 20:00] VITALS: BP 150/52
[2017-08-17] MEDS ORDERED: IPRATROPIUM NEB FS 0.5 MG/2.5 ML AMPUL.NEB NEB PRN (20:00)
--- NOTE | 2017-08-17 20:02 | NUR ---
PT RCVD ON [place] VENT WITH NOTED SETTINGS. VENT ALARM WORKING AND AUDIBLE, SHOE RECONDITIONER CUFF CHECKED, VENT PLUGGED INTO RED OUTLET. SUCTIONED MODERATE AMOUNT OF PALE YELLOW THICK SECRETIONS. BILATERAL BS NOTED. NO RESPIRATORY DISTRESS NOTED AT THIS TIME. AMBU BAG AT BEDSIDE, WILL CONTINUE TO MONITOR THE PATIENT.
[2017-08-17] MEDS: SUCRALFATE 1 G/10 ML UDC GT SCH (21:53)
[2017-08-17] MEDS: ATORVASTATIN 40 MG TABLET GT SCH (21:53)
--- NOTE | 2017-08-17 23:00 | NUR ---
Resting quietly,no problems
[2017-08-18] VITALS: BP 157/50
[2017-08-18] MEDS: IPRATROPIUM NEB FS 0.5 MG/2.5 ML AMPUL.NEB NEB SCH ×4 (01:54→19:58)
[2017-08-18] MEDS: ALBUTEROL FS 2.5 MG/3 ML VIAL.NEB NEB SCH ×4 (01:54→19:58)
--- NOTE | 2017-08-18 03:00 | NUR ---
No unusual signs or symptoms observed or reported,no problems
[2017-08-18 04:00] VITALS: BP 150/51
[2017-08-18] MEDS: CEFEPIME 1 GM in IV D5W 50 ML IV SCH ×2 (04:31→17:51)
--- NOTE | 2017-08-18 04:43 | NUR ---
Patient BS at 2100 was 84;this AM is 109
[2017-08-18] MEDS: RENAL NOVASOURCE 1,000 ML BOTTLE GT PRN (05:16)
--- NOTE | 2017-08-18 05:17 | NUR ---
Carissa source scanned this AM but started at 0005
[2017-08-18] MEDS: BLOOD SUGAR DIAGNOSTIC 1 EACH STRIP IN SCH ×4 (05:52→23:42)
[2017-08-18] MEDS ORDERED: VANCOMYCIN 1 GM in IV D5W 250 ML IV SCH ×2 (06:00→16:00)
--- NOTE | 2017-08-18 06:02 | NUR ---
Resting quietly,no problems
--- NOTE | 2017-08-18 06:53 | NUR ---
9978 Doctor called concerning patient K OF 2.9,C,called again at 4239
--- NOTE | 2017-08-18 07:31 | NUR ---
RN NOTES RECEIVED PT FROM EXTRACTION MACHINE OPERATOR, CHRONIC VENT/TRACH PT. NO SOB OR DISTRESS NOTED. SB ON THE TELE NREIS HR 61. DERAS DRAINING TO GRAVITY, YELLOW IN COLOR. GTF AT 40ML/HR TOLERATING WELL. LH 18G IV SITE INTACT NO IVF. BED LOCKED AND LOWEST POSITION, CALL LIGHT WITHIN REACH, SIDE RAILS UPX3, WILL CONT TO NERIS.
[2017-08-18 08:00] VITALS: BP 158/56
[2017-08-18] MEDS: SUCRALFATE 1 G/10 ML UDC GT SCH ×4 (08:24→21:09)
[2017-08-18] MEDS: VIT B CMPLX 3/FA/VIT C/BIOTIN 1 TAB TABLET GT SCH (08:25)
[2017-08-18] MEDS: TRAMADOL HCL 50 MG TABLET GT SCH (08:25)
[2017-08-18] MEDS: ACIDOPHILUS/BULGARICUS 1 EACH TAB.CHEW GT SCH ×2 (08:25→16:40)
[2017-08-18] MEDS: FERROUS SULFATE (325 MG) 325 MG/TAB TABLET GT SCH (08:25)
[2017-08-18] MEDS: ASPIRIN 81 MG TAB.CHEW GT SCH (08:25)
[2017-08-18] MEDS: AMLODIPINE BESYLATE 10 MG TABLET GT SCH (08:29)
[2017-08-18 09:10] LABS: BASOPHILS % (AUTO) 0.7 % (0.0-2.0); EOSINOPHILS # (AUTO) 0.2 /CMM (0.0-0.7); EOSINOPHILS % (AUTO) 4.3 % (0.0-6.0); HEMATOCRIT 21 % (39-51); HEMOGLOBIN 7.1 g/dL (13.5-17.5); LYMPHOCYTES # (AUTO) 0.9 /CMM (0.8-4.8); LYMPHOCYTES % (AUTO) 16.7 % (20.0-44.0); MEAN CORPUSCULAR HEMOGLOBIN 28 PG (26.0-33.0); MEAN CORPUSCULAR HGB CONC 33 g/dl (31.0-36.0); MEAN CORPUSCULAR VOLUME 85 fL (80-96); MONOCYTES # (AUTO) 0.4 /CMM (0.1-1.30); MONOCYTES % (AUTO) 7.9 % (2.0-12.0); NEUTROPHILS # (AUTO) 3.9 /CMM (1.8-8.9); NEUTROPHILS % (AUTO) 70.4 % (43.0-81.0); PLATELET COUNT (AUTO) 108 /CMM (150-450); RDW COEFFICIENT OF VARIATION 18.4 (11.5-15.0); RED BLOOD CELL COUNT(AUTO) 2.52 MIL/uL (4.5-6.0); WHITE BLOOD COUNT (AUTO) 5.5 K/uL (4.3-11.0)
[2017-08-18 09:11] LABS: CALCIUM, SERUM 8.4 mg/dL (8.5-10.1); CREATININE 2.2 mg/dL (0.6-1.3); PHOSPHORUS 1.9 mg/dL (2.5-4.9); POTASSIUM 2.9 mmol/L (3.5-5.1)
[2017-08-18 12:00] VITALS: BP 134/51
[2017-08-18] MEDS ORDERED: POTASSIUM CHLORIDE 20 MEQ TAB.PRT.SR PO ONE ×2 (12:30→13:30)
[2017-08-18] MEDS ORDERED: INSULIN REGULAR, HUMAN 100 UNIT/ML 10 ML VIAL SQ PRN (12:30)
[2017-08-18] MEDS ORDERED: INSULIN REGULAR, HUMAN 100 UNIT/ML 3 ML VIAL SQ PRN (13:30)
[2017-08-18] MEDS ORDERED: DEXTROSE 50%-WATER 50 ML DISP.SYRIN IV PRN (13:30)
--- NOTE | 2017-08-18 15:24 | NUR ---
RN NOTES ATTEMPTED TO OBTAIN CONSENT FOR WOUND DEBRIDEMENT, NO ANSWER FROM FAMILY, MESSAGE LEFT.
[2017-08-18 16:00] VITALS: BP 147/68
[2017-08-18] MEDS: CADEXOMER IODINE 40 GM TUBE TP SCH (16:01)
[2017-08-18] MEDS ORDERED: BLOOD SUGAR DIAGNOSTIC 1 EACH STRIP IN SCH ×2 (17:30)
--- NOTE | 2017-08-18 18:29 | NUR ---
RT END OF THE SHIFT REPORT PT. 67 Y OLD FEMALE REMAIN TRACHED WITH NOTED AC SETTINGS B/S RALES/ RHONCHI. BILATERALLY AND EQUAL CHEST RISE NOTED SUX'D FOR MODERATE AMT OF YELLOWISH SECRETIONS. VENT PLUGGED INTO RED OUTLET AND NO DISTRESS NOTED T/O SHIFT HME CHANGED AND AMBU BAG REMAIN AT THE BEDSIDE. REPORT WILL BE PASS TO PM SHIFT. Addendum: 08/18/17 at 1830 by TY ADHIKARI RT Amended: Links added.
--- NOTE | 2017-08-18 18:38 | NUR ---
RN NOTES PT REMAINED IN STABLE CONDITION THROUGHOUT THE SHIFT, NO SIGNIFICANT CHANGES, ALL NEEDS MET. PT CLEANED/TURNED/SUCTIONED. WILL ENDORSE TO ONCOMING SHIFT.
--- NOTE | 2017-08-18 19:30 | NUR ---
ELECTRONIC EQUIPMENT REPAIRER INITIAL NOTES RECEIVED PATIENT, NON-VERBAL, OPENS EYES, NOT TRACKING. VENT DEPENDENT. WITH VENT SETTINGS AC 12, TV 500, FIO2 35%, PEEP 5, SPO2 100%. NO RESPIRATORY DISTRESS NOTED. NO S/S OF PAIN OR DISCOMFORT. NO RESPIRATORY DISTRESS NOTED. SKIN WARM AND DRY TO TOUCH. ON TELE MONITOR AFIB CONTROLLED. GENERALIZED EDEMA NOTED. WITH F/C PATENT AND INTACT, DRAINING BY GRAVITY. GT PATENT AND INTACT, IN PLACE, NO RESIDUAL NOTED. HOB ELEVATED. SIDE RAILS UP AND LOCKED. BED KEPT AT LOWEST POSITION. WILL CONTINUE TO MONITOR.
--- NOTE | 2017-08-18 19:59 | NUR ---
Received pt on vent support, pt stable no sob or respiratory distress noted on current settings, alarms are on and audible, ventilator is plugged into red outlet, ambu bag at bedside, will continue monitoring per MDS orders. Addendum: 08/18/17 at 1999 by VALERIE BEVERLY RT Amended: Links added.
[2017-08-18 20:00] VITALS: BP 105/51
[2017-08-18] MEDS: ATORVASTATIN 40 MG TABLET GT SCH (21:09)
--- NOTE | 2017-08-18 22:30 | NUR ---
ASSISTED PATIENT FOR CT SCAN WITH RT
--- NOTE | 2017-08-18 22:55 | NUR ---
RETURNED FROM CT, IN STABLE CONDITION.
[2017-08-19] VITALS (10 sets, daily range): BP systolic 129–150; BP diastolic 43–73
[2017-08-19] MEDS: IPRATROPIUM NEB FS 0.5 MG/2.5 ML AMPUL.NEB NEB SCH ×4 (01:50→19:49)
[2017-08-19] MEDS: ALBUTEROL FS 2.5 MG/3 ML VIAL.NEB NEB SCH ×4 (01:50→19:49)
[2017-08-19] MEDS: CEFEPIME 1 GM in IV D5W 50 ML IV SCH ×2 (05:36→17:01)
[2017-08-19] MEDS: RENAL NOVASOURCE 1,000 ML BOTTLE GT PRN (05:40)
[2017-08-19] MEDS: BLOOD SUGAR DIAGNOSTIC 1 EACH STRIP IN SCH ×3 (05:42→17:02)
[2017-08-19 07:04] LABS: BASOPHILS % (AUTO) 0.2 % (0.0-2.0); EOSINOPHILS # (AUTO) 0.3 /CMM (0.0-0.7); EOSINOPHILS % (AUTO) 5.3 % (0.0-6.0); LYMPHOCYTES # (AUTO) 0.7 /CMM (0.8-4.8); LYMPHOCYTES % (AUTO) 12.3 % (20.0-44.0); MEAN CORPUSCULAR HEMOGLOBIN 28 PG (26.0-33.0); MEAN CORPUSCULAR HGB CONC 33 g/dl (31.0-36.0); MEAN CORPUSCULAR VOLUME 85 fL (80-96); MONOCYTES # (AUTO) 0.5 /CMM (0.1-1.30); MONOCYTES % (AUTO) 8.5 % (2.0-12.0); NEUTROPHILS % (AUTO) 73.7 % (43.0-81.0); PLATELET COUNT (AUTO) 115 /CMM (150-450); RDW COEFFICIENT OF VARIATION 18.5 (11.5-15.0); WHITE BLOOD COUNT (AUTO) 5.4 K/uL (4.3-11.0)
[2017-08-19 07:18] LABS: CALCIUM, SERUM 8.4 mg/dL (8.5-10.1); CREATININE 2.5 mg/dL (0.6-1.3); MAGNESIUM 2.1 mg/dL (1.8-2.4); PHOSPHORUS 1.9 mg/dL (2.5-4.9); POTASSIUM 2.9 mmol/L (3.5-5.1)
[2017-08-19] MEDS ORDERED: DEXTROSE 50%-WATER 50 ML DISP.SYRIN IV PRN (07:30)
--- NOTE | 2017-08-19 07:31 | NUR ---
MANAGER SYSTEM NOTES CALLED AND LEFT MESSAGE FOR DR SINHA IN RE TO LAB HGB 6.7. PATIENT APPEARS STABLE AT THIS TIME
--- NOTE | 2017-08-19 07:43 | NUR ---
CAMELID FIBER SORTER CLOSING NOTES NO SIGNIFICANT CHANGES OVERNIGHT. TOLERATING VENT SETTINGS. TOLERATING GTF. NO RESPIRATORY DISTRESS NOTED. KEPT CLEAN AND DRY. TURNED AND REPOSITIONED Q2 AND PRN. WOUND TX ORDERED. HOB ELEVATED. SIDE RAILS UP AND LOCKED. BED KEPT AT LOWEST POSITION. CONTINUITY OF CARE ENDORSED TO AM NURSE
[2017-08-19 07:54] LABS: HEMOGLOBIN 6.7 g/dL (13.5-17.5)
[2017-08-19 07:55] LABS: HEMATOCRIT 20 % (39-51)
[2017-08-19 08:12] LABS: BAND % (MANUAL) 3 % (0.0-5.0); EOSINOPHILS % (MANUAL) 5 % (0-4); LYMPHOCYTES % (MANUAL) 14 % (16-48); MONOCYTES % (MANUAL) 8 % (0-11.0); NEUTROPHILS % (MANUAL) 70 (42-76)
--- NOTE | 2017-08-19 08:23 | NUR ---
ROLFER NOTES PER DR ERNESTINE ROBERTS FOR 1 UNIT OF PRBC BUT NEED TO CONFIRM WITH FRONT END DRUPAL DEVELOPER FIRST. MESSAGE TO ABALONE FISHERMAN MD FOR NEPHROLOGY
[2017-08-19] MEDS: VIT B CMPLX 3/FA/VIT C/BIOTIN 1 TAB TABLET GT SCH (08:33)
[2017-08-19] MEDS: SUCRALFATE 1 G/10 ML UDC GT SCH ×4 (08:33→21:45)
[2017-08-19] MEDS: FERROUS SULFATE (325 MG) 325 MG/TAB TABLET GT SCH (08:33)
[2017-08-19] MEDS: ASPIRIN 81 MG TAB.CHEW GT SCH (08:33)
[2017-08-19] MEDS: TRAMADOL HCL 50 MG TABLET GT SCH (08:35)
[2017-08-19] MEDS: AMLODIPINE BESYLATE 10 MG TABLET GT SCH (08:36)
[2017-08-19] MEDS: CADEXOMER IODINE 40 GM TUBE TP SCH (08:37)
[2017-08-19] MEDS: ACIDOPHILUS/BULGARICUS 1 EACH TAB.CHEW GT SCH ×2 (08:39→16:59)
--- NOTE | 2017-08-19 09:02 | NUR ---
LEAD NITRATE PROCESSOR NOTES SPOKE WITH DR MEDINA CONFIRMED PER OK TO GIVE 1 UNIT OF BLOOD WITH HD. PER PROTOCOL TYPE AND SCREEN ORDERED AND 1 UNIT OF PRBC ORDERED PER MD.
[2017-08-19] MEDS ORDERED: EPOETIN ALFA (10,000 UNIT) 10,000 UNIT/ML VIAL SQ ONE (10:30)
--- NOTE | 2017-08-19 11:52 | NUR ---
SOLE BLACKER NOTES PATIENT BLOOD BEING TRANSFUSED PER MD BY HD RN NURSE NANDINI DURING DIALYSIS. PATIENT STABLE
[2017-08-19] MEDS ORDERED: Sodium Phosphate 5 MMOL in IV D5W 100 ML IV ONE (13:00)
--- NOTE | 2017-08-19 13:30 | NUR ---
PAPER MACHINE SUPERVISOR NOTES PER ORDER RESUMING PATIENT TUBE FEEDING.
[2017-08-19] MEDS: VANCOMYCIN 500 MG in IV D5W 100 ML IV PRN (13:41)
--- NOTE | 2017-08-19 13:43 | NUR ---
FORM STRIPPER NOTES PER PROTOCOL HOLDING VANCO ADMIN DUE TO ELEVATED VANCO TROUGH
[2017-08-19] MEDS ORDERED: POTASSIUM PHOSPHATE MM 5 MMOL in IV D5W 100 ML IV ONE (14:15)
--- NOTE | 2017-08-19 15:59 | NUR ---
RT NOTE: RECEIVED PATIENT TRACHED ON PB 840 VENT. ALARMS VERIFIED AND AUDIBLE. SUCTIONED AND LAVAGED SMALL-MOD. AMOUNTS THICK FROTHY WHITE SECRETIONS. VENT PLUGGED INTO RED OUTLET. AMBU BAG AT [facility].
[2017-08-19] MEDS: INSULIN REGULAR, HUMAN 100 UNIT/ML 3 ML VIAL SQ PRN (17:12)
--- NOTE | 2017-08-19 18:35 | NUR ---
GASOLINE CATALYST OPERATOR CLOSING PATIENT STABLE ALL DUE MEDS GIVEN AND ALL NEEDS MET. PATIENT HOB ELEVATED FOR ASPIRATION PRECAUTIONS. TUBE FEEDING RUNNING ORDERED, VENT STABLE. TURNED Q2H AND LEFT HEEL AND BILATERAL ARMS ELEVATED AND OFFLOADED. PATIENT APPEARS STABLE AT THIS TIME. NO S/S ACTIVE BLEEDING. WILL ENDORSE CARE TO RN FOR ROSALIA
[2017-08-19] MEDS: ATORVASTATIN 40 MG TABLET GT SCH (21:45)
--- NOTE | 2017-08-19 22:00 | NUR ---
BREAKER MACHINE OPERATOR NOTES TRANSFERED CARE AND GIVEN REPORT TO JACLYN ABEBE
[2017-08-20] VITALS (8 sets, daily range): BP systolic 131–148; BP diastolic 41–58
[2017-08-20] MEDS: BLOOD SUGAR DIAGNOSTIC 1 EACH STRIP IN SCH ×5 (00:10→23:09)
[2017-08-20] MEDS: ALBUTEROL FS 2.5 MG/3 ML VIAL.NEB NEB SCH ×4 (01:31→20:46)
[2017-08-20] MEDS: IPRATROPIUM NEB FS 0.5 MG/2.5 ML AMPUL.NEB NEB SCH ×4 (01:31→20:45)
--- NOTE | 2017-08-20 02:03 | NUR ---
RT NOTE: RECEIVED TRACH PT ON VENT WITH NOTED SETTINGS. TRACH WELL SECURED. ELECTRIC MOTOR FITTER DONE. VENT PLUGGED INTO RED OUTLET. ALARMS AUDIBLE AND WELL FUNCTIONING WITH AMBU BAG PLACED AT BEDSIDE. PRN SX DARRON. Q6 HHN BREATHING TX GIVEN. NO ADVERSE REACTION NOTED. WILL CONT TO MONITOR PT.
[2017-08-20] MEDS: CEFEPIME 1 GM in IV D5W 50 ML IV SCH ×2 (06:18→18:53)
[2017-08-20] MEDS: RENAL NOVASOURCE 1,000 ML BOTTLE GT PRN (06:45)
[2017-08-20 06:47] LABS: CALCIUM, SERUM 8.3 mg/dL (8.5-10.1); CREATININE 2.4 mg/dL (0.6-1.3); POTASSIUM 3.2 mmol/L (3.5-5.1)
[2017-08-20 06:49] LABS: BASOPHILS % (AUTO) 0.5 % (0.0-2.0); EOSINOPHILS # (AUTO) 0.4 /CMM (0.0-0.7); EOSINOPHILS % (AUTO) 5.4 % (0.0-6.0); HEMATOCRIT 23 % (39-51); HEMOGLOBIN 7.7 g/dL (13.5-17.5); LYMPHOCYTES # (AUTO) 0.7 /CMM (0.8-4.8); LYMPHOCYTES % (AUTO) 10.5 % (20.0-44.0); MEAN CORPUSCULAR HEMOGLOBIN 28 PG (26.0-33.0); MEAN CORPUSCULAR HGB CONC 33 g/dl (31.0-36.0); MEAN CORPUSCULAR VOLUME 85 fL (80-96); MONOCYTES # (AUTO) 0.5 /CMM (0.1-1.30); MONOCYTES % (AUTO) 7.7 % (2.0-12.0); NEUTROPHILS # (AUTO) 5.1 /CMM (1.8-8.9); NEUTROPHILS % (AUTO) 75.9 % (43.0-81.0); PLATELET COUNT (AUTO) 118 /CMM (150-450); RDW COEFFICIENT OF VARIATION 18.8 (11.5-15.0); RED BLOOD CELL COUNT(AUTO) 2.72 MIL/uL (4.5-6.0); WHITE BLOOD COUNT (AUTO) 6.7 K/uL (4.3-11.0)
[2017-08-20] MEDS: FERROUS SULFATE (325 MG) 325 MG/TAB TABLET GT SCH (09:08)
[2017-08-20] MEDS: ASPIRIN 81 MG TAB.CHEW GT SCH (09:08)
[2017-08-20] MEDS: TRAMADOL HCL 50 MG TABLET GT SCH (09:09)
[2017-08-20] MEDS: AMLODIPINE BESYLATE 10 MG TABLET GT SCH (09:10)
[2017-08-20] MEDS: SUCRALFATE 1 G/10 ML UDC GT SCH ×4 (09:11→21:18)
[2017-08-20] MEDS: ACIDOPHILUS/BULGARICUS 1 EACH TAB.CHEW GT SCH ×2 (09:11→17:00)
[2017-08-20] MEDS: VIT B CMPLX 3/FA/VIT C/BIOTIN 1 TAB TABLET GT SCH (09:11)
[2017-08-20] MEDS: CADEXOMER IODINE 40 GM TUBE TP SCH (09:12)
--- NOTE | 2017-08-20 09:53 | NUR ---
WOUND CARE CONSULT: PT FOLLOWED BY SURGICAL TEAM FOR SKIN/WOUND TREATMENT PLAN. DEFER TO SURGICAL TEAM FOR SKIN/WOUND TREATMENT PLAN. PT ON TRAMAINE ISOFLEX LOW AIRLOSS BED. ALL SKIN PROTECTION MEASURES IN PLACE AND DISCUSSED WITH NURSING STAFF. MD IN AGREEMENT WITH PLAN OF CARE. CURRENT DANETTE SCORE IS 12.
--- NOTE | 2017-08-20 20:00 | NUR ---
RT NOTE: RECEIVED TRACH PT ON VENT WITH NOTED SETTINGS. TRACH WELL SECURED. SWIMMING TEACHER DONE. VENT PLUGGED INTO RED OUTLET. ALARMS AUDIBLE AND WELL FUNCTIONING WITH AMBU BAG PLACED AT BEDSIDE. PRN SX DARRON. Q6 HHN BREATHING TX GIVEN. NO ADVERSE REACTION NOTED. WILL CONT TO MONITOR PT.
[2017-08-20] MEDS: ATORVASTATIN 40 MG TABLET GT SCH (21:23)
[2017-08-20] MEDS: INSULIN REGULAR, HUMAN 100 UNIT/ML 3 ML VIAL SQ PRN (23:15)
[2017-08-21] VITALS (8 sets, daily range): BP systolic 81–151; BP diastolic 30–72
[2017-08-21] MEDS: IPRATROPIUM NEB FS 0.5 MG/2.5 ML AMPUL.NEB NEB SCH ×4 (01:31→19:17)
[2017-08-21] MEDS: ALBUTEROL FS 2.5 MG/3 ML VIAL.NEB NEB SCH ×4 (01:31→19:16)
[2017-08-21] MEDS: CEFEPIME 1 GM in IV D5W 50 ML IV SCH ×2 (05:49→17:35)
[2017-08-21] MEDS: RENAL NOVASOURCE 1,000 ML BOTTLE GT PRN (06:44)
[2017-08-21] MEDS: BLOOD SUGAR DIAGNOSTIC 1 EACH STRIP IN SCH ×3 (06:46→17:35)
[2017-08-21 07:08] LABS: BASOPHILS % (AUTO) 0.3 % (0.0-2.0); EOSINOPHILS # (AUTO) 0.4 /CMM (0.0-0.7); EOSINOPHILS % (AUTO) 5.7 % (0.0-6.0); HEMATOCRIT 24 % (39-51); HEMOGLOBIN 7.7 g/dL (13.5-17.5); LYMPHOCYTES # (AUTO) 0.8 /CMM (0.8-4.8); MEAN CORPUSCULAR HEMOGLOBIN 28 PG (26.0-33.0); MEAN CORPUSCULAR HGB CONC 33 g/dl (31.0-36.0); MEAN CORPUSCULAR VOLUME 85 fL (80-96); MONOCYTES # (AUTO) 0.5 /CMM (0.1-1.30); MONOCYTES % (AUTO) 6.7 % (2.0-12.0); NEUTROPHILS # (AUTO) 5.9 /CMM (1.8-8.9); NEUTROPHILS % (AUTO) 77.3 % (43.0-81.0); PLATELET COUNT (AUTO) 125 /CMM (150-450); RED BLOOD CELL COUNT(AUTO) 2.79 MIL/uL (4.5-6.0); WHITE BLOOD COUNT (AUTO) 7.6 K/uL (4.3-11.0)
[2017-08-21 07:18] LABS: CALCIUM, SERUM 8.6 mg/dL (8.5-10.1); CREATININE 2.9 mg/dL (0.6-1.3); MAGNESIUM 2.2 mg/dL (1.8-2.4); PHOSPHORUS 2.3 mg/dL (2.5-4.9); POTASSIUM 3.5 mmol/L (3.5-5.1)
--- NOTE | 2017-08-21 07:30 | NUR ---
CODING SPECIALIST INITIAL NOTES RECEIVED PATIENT IN BED, ON VENT SETTINGS ORDERED, SUCTIONED SECRETIONS, OBTUNDED, ON TELE MONITOR SR 60S, G-TUBE FEEDINGS, NO RESIDUAL NOTESD, IV LFA G18, 2L, CLEAN AND PATENT RCW PERMACATH, HD ACCESS, FC TO GRAVITY SMALL AMOUNT OF CLEAR YELLOW URINE NOTED, BED IN LOW AND LOCKED POSITION, WILL CONTINUE TO MONITOR.
--- NOTE | 2017-08-21 07:50 | NUR ---
RN CLOSING NOTES PATIENT STABLE ALL DUE MEDS GIVEN AND ALL NEEDS MET. PATIENT HOB ELEVATED FOR ASPIRATION PRECAUTIONS. TUBE FEEDING RUNNING ORDERED, VENT STABLE. TURNED Q2H AND LEFT HEEL AND BILATERAL ARMS ELEVATED AND OFFLOADED. PATIENT APPEARS STABLE AT THIS TIME. NO S/S ACTIVE BLEEDING. WILL ENDORSE CARE TO AM RN.
--- NOTE | 2017-08-21 08:29 | NUR ---
PT. RECEIVED ON VENT SUPPORT VIA TRACH WITH PARAMETERS BELLOW ORDER: AC 12 VT 500 FIO2 35% PEEP 5 MECH VENT PLUGGED INTO RED OUTLET WITH ALARMS ON AND FUNCTIONING. AROLDO @ HOB. Addendum: 08/21/17 at 1754 by FARRUKH BRANCH RT Amended: Links added.
[2017-08-21] MEDS: ACIDOPHILUS/BULGARICUS 1 EACH TAB.CHEW GT SCH ×2 (08:45→17:35)
[2017-08-21] MEDS: ASPIRIN 81 MG TAB.CHEW GT SCH (08:45)
[2017-08-21] MEDS: SUCRALFATE 1 G/10 ML UDC GT SCH ×4 (08:45→21:45)
[2017-08-21] MEDS: TRAMADOL HCL 50 MG TABLET GT SCH (08:46)
[2017-08-21] MEDS: FERROUS SULFATE (325 MG) 325 MG/TAB TABLET GT SCH (08:46)
[2017-08-21] MEDS: VIT B CMPLX 3/FA/VIT C/BIOTIN 1 TAB TABLET GT SCH (08:46)
[2017-08-21] MEDS: CADEXOMER IODINE 40 GM TUBE TP SCH (08:47)
[2017-08-21] MEDS: AMLODIPINE BESYLATE 10 MG TABLET GT SCH (08:50)
[2017-08-21] MEDS ORDERED: NEUTRA PHOS 1 POWD.PACKET NG ONE (12:30)
[2017-08-21] MEDS: VANCOMYCIN 500 MG in IV D5W 100 ML IV PRN (18:45)
--- NOTE | 2017-08-21 19:00 | NUR ---
OCCUPATIONAL PSYCHOLOGIST END NOTES PATIENT RESTING IN BED, NO SIGNS OF DISTRESS, ALL NEEDS ATTENDED TO, PATIENT HAD HD TODAY WITH 2L OUT, TOLERATED WELL, WILL ENDORSE TO ONLINE MERCHANDISING COORDINATOR FOR CONTINUITY OF CARE.
--- NOTE | 2017-08-21 19:30 | NUR ---
SCALES INSPECTOR INITIAL NOTES RECEIVED PATIENT, NON-VERBAL, OPENS EYES, NOT TRACKING. VENT DEPENDENT. WITH VENT SETTINGS AC 12, TV 500, FIO2 35%, PEEP 5, SPO2 100%. NO RESPIRATORY DISTRESS NOTED. NO S/S OF PAIN OR DISCOMFORT. NO RESPIRATORY DISTRESS NOTED. SKIN WARM AND DRY TO TOUCH. ON TELE MONITOR SINUS RHYTHM 64. GENERALIZED EDEMA NOTED. WITH F/C PATENT AND INTACT, DRAINING BY GRAVITY. GT PATENT AND INTACT, IN PLACE, TOLERATING WELL, NO RESIDUAL NOTED. HOB ELEVATED. SIDE RAILS UP AND LOCKED. BED KEPT AT LOWEST POSITION. WILL CONTINUE TO MONITOR.
[2017-08-21] MEDS: ATORVASTATIN 40 MG TABLET GT SCH (21:45)
[2017-08-22] VITALS (12 sets, daily range): BP systolic 127–137; BP diastolic 45–78
[2017-08-22] MEDS: BLOOD SUGAR DIAGNOSTIC 1 EACH STRIP IN SCH ×4 (00:28→17:39)
[2017-08-22] MEDS: IPRATROPIUM NEB FS 0.5 MG/2.5 ML AMPUL.NEB NEB SCH ×4 (00:56→19:37)
[2017-08-22] MEDS: ALBUTEROL FS 2.5 MG/3 ML VIAL.NEB NEB SCH ×4 (00:56→19:37)
--- NOTE | 2017-08-22 05:39 | NUR ---
RT NOTES RECEIVED PT TRACH'D ON [facility] VENT WITH NOTED SETTINGS. MAINTENANCE ASSISTANT DONE. VENT PLUGGED INTO RED OUTLET. ALARMS ON AND WORKING PROPERLY. SUCTIONED SMALL AMOUNTS OF THICK, PALE YELLOW SECRETIONS. BREATH SOUNDS RHONCHI BILAT. AMBU BAG AT BEDSIDE. NO SIGNS OF DISTRESS NOTED AT THIS TIME. HME CHANGED. Addendum: 08/22/17 at 0540 by OLIVA OWENS RT Amended: Links added.
[2017-08-22] MEDS: CEFEPIME 1 GM in IV D5W 50 ML IV SCH ×2 (05:51→18:51)
[2017-08-22] MEDS: INSULIN REGULAR, HUMAN 100 UNIT/ML 3 ML VIAL SQ PRN (06:30)
--- NOTE | 2017-08-22 06:44 | NUR ---
UPSETTER HELPER CLOSING NOTES NO SIGNIFICANT CHANGES OVERNIGHT. ALL DUE MEDS GIVEN. TOLERATING CURRENT VENTS SETTINGS. TRACH CARE DONE. SUCTIONED NEEDED. TOLERATING GTF. NO N/V. KEPT CLEAN AND DRY. TURNED AND REPOSITIONED Q2 AND PRN. WOUND TX DONE ORDERED. HOB ELEVATED. SIDE RAILS UP AND LOCKED. BED KEPT AT LOWEST POSITION. WILL ENDORSE CONTINUITY OF CARE TO AM NURSE.
--- NOTE | 2017-08-22 07:30 | NUR ---
CUSTOMER TRAINING SPECIALIST OPENING NOTES RECEIVED PATIENT IN STABLE CONDITION. IN NO APPARENT DISTRESS. BEDSIDE RAILS ARE UP X2. BED IS LOCKED AND LOWERED. CALL LIGHT IS WITHIN REACH. WILL CONTINUE TO MONITOR.
[2017-08-22 07:38] LABS: BASOPHILS % (AUTO) 0.3 % (0.0-2.0); EOSINOPHILS # (AUTO) 0.4 /CMM (0.0-0.7); EOSINOPHILS % (AUTO) 5.2 % (0.0-6.0); HEMATOCRIT 21 % (39-51); LYMPHOCYTES # (AUTO) 0.8 /CMM (0.8-4.8); LYMPHOCYTES % (AUTO) 10.7 % (20.0-44.0); MEAN CORPUSCULAR HEMOGLOBIN 28 PG (26.0-33.0); MEAN CORPUSCULAR HGB CONC 33 g/dl (31.0-36.0); MEAN CORPUSCULAR VOLUME 84 fL (80-96); MONOCYTES # (AUTO) 0.5 /CMM (0.1-1.30); MONOCYTES % (AUTO) 7.4 % (2.0-12.0); NEUTROPHILS # (AUTO) 5.6 /CMM (1.8-8.9); NEUTROPHILS % (AUTO) 76.4 % (43.0-81.0); PLATELET COUNT (AUTO) 115 /CMM (150-450); RDW COEFFICIENT OF VARIATION 18.2 (11.5-15.0); RED BLOOD CELL COUNT(AUTO) 2.45 MIL/uL (4.5-6.0); WHITE BLOOD COUNT (AUTO) 7.3 K/uL (4.3-11.0)
[2017-08-22 07:44] LABS: HEMOGLOBIN 6.8 g/dL (13.5-17.5)
[2017-08-22 07:46] LABS: CALCIUM, SERUM 8.4 mg/dL (8.5-10.1); CREATININE 2.7 mg/dL (0.6-1.3); POTASSIUM 3.3 mmol/L (3.5-5.1)
--- NOTE | 2017-08-22 08:00 | NUR ---
NOTIFIED MIKY GRIFFIN NP ABOUT PATIENTS LOW HEMOGLOBIN LEVEL OF 6.8. NO ORDERS GIVEN.
[2017-08-22] MEDS: VIT B CMPLX 3/FA/VIT C/BIOTIN 1 TAB TABLET GT SCH (08:56)
[2017-08-22] MEDS: TRAMADOL HCL 50 MG TABLET GT SCH (08:56)
[2017-08-22] MEDS: ACIDOPHILUS/BULGARICUS 1 EACH TAB.CHEW GT SCH ×2 (08:56→17:39)
[2017-08-22] MEDS: FERROUS SULFATE (325 MG) 325 MG/TAB TABLET GT SCH (08:56)
[2017-08-22] MEDS: AMLODIPINE BESYLATE 10 MG TABLET GT SCH (08:57)
[2017-08-22] MEDS: SUCRALFATE 1 G/10 ML UDC GT SCH ×4 (08:57→21:10)
[2017-08-22] MEDS: CADEXOMER IODINE 40 GM TUBE TP SCH (08:57)
[2017-08-22] MEDS: ASPIRIN 81 MG TAB.CHEW GT SCH (08:57)
[2017-08-22 09:52] LABS: EOSINOPHILS % (MANUAL) 5 % (0-4); LYMPHOCYTES % (MANUAL) 16 % (16-48); MONOCYTES % (MANUAL) 10 % (0-11.0); NEUTROPHILS % (MANUAL) 69 (42-76)
[2017-08-22] MEDS: RENAL NOVASOURCE 1,000 ML BOTTLE GT PRN (11:27)
--- NOTE | 2017-08-22 12:16 | NUR ---
RT RT RECD PT TRACH'D ON ORDERED VENT SETTINGS ALARMS ON AND AUDIBLE. PLUGGED IN RED OUTLET AMBU BAG ON BEDSIDE NO SIGNS OF RESP DISTRESS NOTED ATT. SX MODERATE THICK PALE YELLOW SECRETIONS
--- NOTE | 2017-08-22 19:09 | NUR ---
PODIATRIST ORTHOPEDIC CLOSING NOTES PATIENT IS IN STABLE CONDITION. IN NO APPARENT DISTRESS. BEDSIDE RAILS ARE UP X2 . CALL LIGHT IS WITHIN REACH. BED IS LOCKED AND LOWERED. WILL ENDORSE CARE TO SKID WRAPPER NURSE FOR ROSALIA.
[2017-08-22] MEDS: HYDROCODONE/APAP 5/325MG 1 EACH TABLET PO PRN (21:10)
[2017-08-22] MEDS: ATORVASTATIN 40 MG TABLET GT SCH (21:10)
[2017-08-23] VITALS: BP 131/61
[2017-08-23] MEDS: BLOOD SUGAR DIAGNOSTIC 1 EACH STRIP IN SCH ×4 (00:23→17:36)
[2017-08-23] MEDS: INSULIN REGULAR, HUMAN 100 UNIT/ML 3 ML VIAL SQ PRN ×2 (00:25→17:41)
[2017-08-23] MEDS: ALBUTEROL FS 2.5 MG/3 ML VIAL.NEB NEB SCH ×4 (01:16→20:01)
[2017-08-23] MEDS: IPRATROPIUM NEB FS 0.5 MG/2.5 ML AMPUL.NEB NEB SCH ×4 (01:16→20:01)
[2017-08-23] MEDS: HYDROCODONE/APAP 5/325MG 1 EACH TABLET PO PRN ×2 (01:41→21:02)
--- NOTE | 2017-08-23 02:28 | NUR ---
RT NOTES RECEIVED PT TRACH'D ON [facility] VENT WITH NOTED SETTINGS. LINE SERVICE PERSON DONE. VENT PLUGGED INTO RED OUTLET. ALARMS ON AND WORKING PROPERLY. SUCTIONED SMALL AMOUNTS OF THICK, PALE YELLOW SECRETIONS. BREATH SOUNDS RHONCHI BILAT. AMBU BAG AT BEDSIDE. NO SIGNS OF DISTRESS NOTED AT THIS TIME. HME /JAYNE/ NEBULIZER CHANGED Addendum: 08/23/17 at 0228 by OLIVA OWENS RT Amended: Links added.
[2017-08-23 04:00] VITALS: BP 119/67
[2017-08-23] MEDS: CEFEPIME 1 GM in IV D5W 50 ML IV SCH ×2 (06:12→17:36)
[2017-08-23] MEDS: RENAL NOVASOURCE 1,000 ML BOTTLE GT PRN (06:13)
[2017-08-23 06:42] LABS: BASOPHILS % (AUTO) 0.5 % (0.0-2.0); EOSINOPHILS # (AUTO) 0.3 /CMM (0.0-0.7); EOSINOPHILS % (AUTO) 4.4 % (0.0-6.0); HEMATOCRIT 25 % (39-51); HEMOGLOBIN 8.3 g/dL (13.5-17.5); LYMPHOCYTES # (AUTO) 0.9 /CMM (0.8-4.8); LYMPHOCYTES % (AUTO) 11.5 % (20.0-44.0); MEAN CORPUSCULAR HEMOGLOBIN 29 PG (26.0-33.0); MEAN CORPUSCULAR HGB CONC 34 g/dl (31.0-36.0); MEAN CORPUSCULAR VOLUME 85 fL (80-96); MONOCYTES # (AUTO) 0.5 /CMM (0.1-1.30); MONOCYTES % (AUTO) 6.9 % (2.0-12.0); NEUTROPHILS # (AUTO) 5.7 /CMM (1.8-8.9); NEUTROPHILS % (AUTO) 76.7 % (43.0-81.0); PLATELET COUNT (AUTO) 125 /CMM (150-450); RDW COEFFICIENT OF VARIATION 16.6 (11.5-15.0); RED BLOOD CELL COUNT(AUTO) 2.93 MIL/uL (4.5-6.0); WHITE BLOOD COUNT (AUTO) 7.4 K/uL (4.3-11.0)
[2017-08-23 06:57] LABS: CALCIUM, SERUM 8.8 mg/dL (8.5-10.1); CREATININE 3.1 mg/dL (0.6-1.3); POTASSIUM 3.5 mmol/L (3.5-5.1)
--- NOTE | 2017-08-23 07:44 | NUR ---
RN NOTES RECEIVED PT FROM PROFESSOR/NURSE ANESTHETIST IN STABLE CONDITION, CHRONIC VENT/TRACH DEPENDENT, OBTUNDED. SR ON THE TELE NERIS HR 63. DERAS DRAINING TO GRAVITY, YELLOW IN COLOR. GTF AT 40ML/HR. HOB ELEVATED. BED LOCKED AND IN LOWEST POSITION, CALL LIGHT WITHIN REACH, SIDE RAILS UPX3, WILL CONT TO NERIS.
[2017-08-23 08:00] VITALS: BP 137/51
[2017-08-23] MEDS: VIT B CMPLX 3/FA/VIT C/BIOTIN 1 TAB TABLET GT SCH (09:03)
[2017-08-23] MEDS: SUCRALFATE 1 G/10 ML UDC GT SCH ×4 (09:03→21:02)
[2017-08-23] MEDS: ASPIRIN 81 MG TAB.CHEW GT SCH (09:03)
[2017-08-23] MEDS: AMLODIPINE BESYLATE 10 MG TABLET GT SCH (09:04)
[2017-08-23] MEDS: ACIDOPHILUS/BULGARICUS 1 EACH TAB.CHEW GT SCH ×2 (09:05→16:27)
[2017-08-23] MEDS: TRAMADOL HCL 50 MG TABLET GT SCH (09:05)
[2017-08-23] MEDS: FERROUS SULFATE (325 MG) 325 MG/TAB TABLET GT SCH (09:06)
[2017-08-23] MEDS: CADEXOMER IODINE 40 GM TUBE TP SCH (09:08)
[2017-08-23 12:00] VITALS: BP 129/49
[2017-08-23 16:00] VITALS: BP 140/59
--- NOTE | 2017-08-23 16:07 | NUR ---
RT RT RECD PT TRACH'D ON ORDERED VENT SETTINGS ALARMS ON AND AUDIBLE. PLUGGED IN RED OUTLET AMBU BAG ON BEDSIDE NO SIGNS OF RESP DISTRESS NOTED ATT. SX SMALL THICK PALE YELLOW SECRETIONS
--- NOTE | 2017-08-23 18:47 | NUR ---
RN NOTES PT REMAINED IN STABLE CONDITION THROUGHOUT THE SHIFT, NO SIGNIFICANT CHANGES. WILL ENDORSE TO ONCOMING SHIFT.
[2017-08-23 20:00] VITALS: BP 166/71
--- NOTE | 2017-08-23 20:02 | NUR ---
PT RCVD ON [facility] VENT WITH NOTED SETTINGS. VENT PLUGGED INTO RED OUTLET,VENT ALARM IS WORKING AND AUDIBLE. , VALIDATION LEADER CUFF CHECKED. SUCTIONED MODERATE AMOUNT OF YELLOW THICK SECRETIONS. BREATHING TX GIVEN MD'S ORDERED, NO ADVERSE REACTION NOTED. BILATERAL BS NOTED, NO RESPIRATORY DISTRESS NOTED AT THIS TIME. WILL CONTINUE TO MONITOR THE PT.
[2017-08-23] MEDS: ATORVASTATIN 40 MG TABLET GT SCH (21:02)
--- NOTE | 2017-08-23 21:34 | NUR ---
TELE-1/GRAPHITE PAN DRIER TENDER REPORT TO EMS FOR TRANSFER TO [facility]. FC REMOVED. REPORT TO JAVIER ANAYA AT [place]. VSS AFEBRILE.
--- NOTE | 2017-08-23 21:47 | NUR ---
TELE-1/FINANCIAL ANALYSIS MANAGER PT OFF THE FLOOR WITH EMS FOR TRANSPORT TO [place].
== END 2017-08-23 21:50 | DRG 720 ==
LOC: ER 15:52 → TELE1 18:22
PROVIDERS: ADMIT Internal Medicine; ATTEND Internal Medicine
PROC: 5A1955Z Respiratory Ventilation, Greater than 96 Consecutive Hours (ICD-10-PCS; principal; 2017-08-17)
PROC: 30233N1 Transfusion of Nonautologous Red Blood Cells into Peripheral Vein, Percutaneous Approach (ICD-10-PCS; principal; 2017-08-17)
PROC: 5A1D70Z Performance of Urinary Filtration, Intermittent, Less than 6 Hours Per Day (ICD-10-PCS; 2017-08-19)
PROC: 5A1D70Z Performance of Urinary Filtration, Intermittent, Less than 6 Hours Per Day (ICD-10-PCS; 2017-08-21)
DX: A41.9 Sepsis, unspecified organism (principal); I50.33 Acute on chronic diastolic (congestive) heart failure; G93.40 Encephalopathy, unspecified; Z99.11 Dependence on respirator [ventilator] status; J18.9 Pneumonia, unspecified organism; J90 Pleural effusion, not elsewhere classified; J96.11 Chronic respiratory failure with hypoxia; L89.893 Pressure ulcer of other site, stage 3; R53.2 Functional quadriplegia; Z93.0 Tracheostomy status; I13.2 Hypertensive heart and chronic kidney disease with heart failure and with stage 5 chronic kidney disease, or end stage renal disease; E11.9 Type 2 diabetes mellitus without complications; K21.9 Gastro-esophageal reflux disease without esophagitis; Z86.73 Personal history of transient ischemic attack (TIA), and cerebral infarction without residual deficits; Z99.2 Dependence on renal dialysis; Z93.1 Gastrostomy status; R13.10 Dysphagia, unspecified; E11.22 Type 2 diabetes mellitus with diabetic chronic kidney disease; E11.51 Type 2 diabetes mellitus with diabetic peripheral angiopathy without gangrene; E11.69 Type 2 diabetes mellitus with other specified complication; E11.622 Type 2 diabetes mellitus with other skin ulcer; L97.929 Non-pressure chronic ulcer of unspecified part of left lower leg with unspecified severity; N39.0 Urinary tract infection, site not specified; Z89.511 Acquired absence of right leg below knee; Z87.440 Personal history of urinary (tract) infections; Z82.49 Family history of ischemic heart disease and other diseases of the circulatory system; Z82.3 Family history of stroke; Y95 Nosocomial condition; N18.6 End stage renal disease; Z79.4 Long term (current) use of insulin; Z79.82 Long term (current) use of aspirin; Z79.899 Other long term (current) drug therapy; I25.10 Atherosclerotic heart disease of native coronary artery without angina pectoris; D64.9 Anemia, unspecified; N50.89 Other specified disorders of the male genital organs; E87.5 Hyperkalemia; E87.6 Hypokalemia; E87.1 Hypo-osmolality and hyponatremia; E78.5 Hyperlipidemia, unspecified; L89.320 Pressure ulcer of left buttock, unstageable; L89.310 Pressure ulcer of right buttock, unstageable; L89.150 Pressure ulcer of sacral region, unstageable; I77.1 Stricture of artery; I27.20 Pulmonary hypertension, unspecified; I34.0 Nonrheumatic mitral (valve) insufficiency; E83.39 Other disorders of phosphorus metabolism; I70.0 Atherosclerosis of aorta; B96.5 Pseudomonas (aeruginosa) (mallei) (pseudomallei) as the cause of diseases classified elsewhere; I87.8 Other specified disorders of veins
CPT/HCPCS: 31720; 36415; 71045-TC; 71250-TC; 80048-TC; 80076-TC; 80202-TC; 81000-TC; 82962-TC; 83605-TC; 83735-TC; 84100-TC; 84484-TC; 85025-TC; 85730-TC; 86850-TC; 86921-TC; 87040-TC; 87081-TC; 87086-TC; 87186-TC; 90935-TC; 94003-TC; 94760-TC; 94762-TC; A4606; A4623; A6253; A6402; A9563; J0692; J0885; J1815; J3370; J3490; J7050; J7060; P9016-BL; Z7610